=== PATIENT | female | born 1950 | race Caucasian/White ===

== ENCOUNTER → 2020-05-21 09:57 | Outpatient (BNVA) | payer MEDICARE, SELFPAY | PROVIDERS: PCP Internal Medicine; Visit Provider Internal Medicine | DX: Z01.810 Encounter for preprocedural cardiovascular examination (principal); E78.5 Hyperlipidemia, unspecified; M35.3 Polymyalgia rheumatica; R60.0 Localized edema; Z79.52 Long term (current) use of systemic steroids; Z79.899 Other long term (current) drug therapy | CPT/HCPCS: 99212 ==

== ENCOUNTER 2020-06-17 11:02 | Outpatient (REF) | payer MEDICARE, SELFPAY ==
[2020-06-17 14:28] LABS: Anion Gap 16 (12-20); Blood Urea Nitrogen 27 mg/dL (9-16); Calcium 9.6 mg/dL (8.4-10.2); Carbon Dioxide 27 mmol/L (22-29); Chloride 102 mmol/L (96-108); Estimated Glomerular Filt Rate 46; Glucose Random 109 mg/dL (60-115); Potassium 4.3 mmol/l (3.3-5.1); Sodium 141 mmol/L (135-145)
== END 2020-06-17 11:03 | disposition home or self-care (01) ==
LOC: HO.10HDL 11:02
PROVIDERS: Absent Provider Internal Medicine Hypertension Specialist; PCP Registered Nurse; Referring Provider Registered Nurse; Visit Provider Internal Medicine
DX: R07.2 Precordial pain (principal); D64.9 Anemia, unspecified; N18.30 Chronic kidney disease, stage 3 unspecified
CPT/HCPCS: 36415; 80048

== ENCOUNTER 2020-09-27 09:03 | Outpatient (REF) | payer MEDICARE, SELFPAY ==
[2020-09-27 13:59] LABS: Anion Gap 15 (12-20); Blood Urea Nitrogen 16 mg/dL (9-16); Calcium 9.3 mg/dL (8.4-10.2); Carbon Dioxide 30 mmol/L (22-29); Chloride 102 mmol/L (96-108); Estimated Glomerular Filt Rate 47; Sodium 143 mmol/L (135-145)
== END 2020-09-27 09:04 | disposition home or self-care (01) ==
LOC: HO.10HDL 09:03
PROVIDERS: Visit Provider Internal Medicine Hypertension Specialist
DX: D64.9 Anemia, unspecified (principal); N18.30 Chronic kidney disease, stage 3 unspecified
CPT/HCPCS: 36415; 80051; 82310; 82565; 84520

== ENCOUNTER → 2020-11-20 14:48 | Outpatient (BNVA) | payer MEDICARE, SELFPAY | PROVIDERS: PCP Registered Nurse; Visit Provider Internal Medicine | DX: I25.10 Atherosclerotic heart disease of native coronary artery without angina pectoris (principal); E78.5 Hyperlipidemia, unspecified; R60.0 Localized edema | CPT/HCPCS: 93005; 99212 ==

== ENCOUNTER 2021-05-29 09:57 | Emergency (ER) | payer MEDICARE, SELFPAY ==
--- NOTE | ~2021-05-29 | XR_ITS ---
EXAMINATION: XR CHEST CLINICAL INFORMATION: Chest pain COMPARISON: Chest 10/06/2019 TECHNIQUE: Frontal view of the chest was obtained. FINDINGS: No significant abnormality is noted involving the heart, lungs, mediastinum, bony thorax or soft tissues. XR/XR chest 1V IMPRESSION: Unremarkable chest exam.
--- NOTE | 2021-05-29 10:02 | ECG_ITS ---
Test Reason : CHEST PAIN Blood Pressure : / mmHG Vent. Rate : 078 BPM Atrial Rate : 078 BPM P-R Int : 126 ms QRS Dur : 098 ms QT Int : 400 ms P-R-T Axes : -05 -25 -16 degrees QTc Int : 456 ms Artifact in tracing Normal sinus rhythm cannot exclude old inferior infarct, but could be normal variant When compared with ECG of 06-OCT-2019 10:04, No significant changes seen Referred By: Generic ED Physician Electronically Signed By:CODY AMARO
[2021-05-29 10:23] VITALS: BP 131/74; PULSE 89; RESP 20; TEMP 36.9; O2SAT 98; BMI 40.3
[2021-05-29 10:44] VITALS: PULSE 79
[2021-05-29 10:44] LABS: MANUAL DIFF FLAG NO
[2021-05-29 10:54] LABS: Basophils Percent Auto 0.4 % (0-2); Eosinophils Absolute Auto 0.1 X10*3/uL (0.0-0.4); Eosinophils Percent Auto 1.1 % (0-4); Hematocrit 34.7 % (37.0-47.0); Hemoglobin 10.9 g/dl (12.0-16.0); Imm Gran Abs Auto 0.02 X10*3/uL (0.00-0.03); Imm Gran Pct Auto 0.2 % (0.0-0.4); Lymphocytes Absolute Auto 1.6 X10*3/uL (1.2-4.9); Lymphocytes Percent Auto 18.8 % (20-40); Mean Corpuscular HGB Conc 31.4 g/dl (31.0-35.0); Mean Corpuscular Volume 85.9 fL (80.0-98.0); Mean Platelet Volume 9.3 fL (9.4-12.3); Monocytes Absolute Auto 0.4 X10*3/uL (0.1-1.2); Monocytes Percent Auto 5.1 % (2-11); Neutrophils Absolute Auto 6.2 x10*3/uL (2.0-8.3); Neutrophils Percent Auto 74.4 % (45-73); Platelet Count 205 X10*3/uL (160-400); Red Blood Count 4.04 X10*6/uL (4.20-5.50); Red Cell Distribution Width 14.7 % (11.0-16.0); White Blood Count 8.3 X10*3/uL (4.8-10.8)
[2021-05-29 11:00] LABS: INTERNATIONAL NORM RATIO 1.1 (0.9-1.1)
[2021-05-29 11:02] LABS: Anion Gap 16 (12-20); Blood Urea Nitrogen 17 mg/dL (9-16); Calcium 9.8 mg/dL (8.4-10.2); Carbon Dioxide 29 mmol/L (22-29); Chloride 103 mmol/L (96-108); Creatinine Clr Calc Pharmacy 55.8; Estimated Glomerular Filt Rate 47; Glucose Random 122 mg/dL (60-115); Potassium 3.6 mmol/L (3.3-5.1); Sodium 144 mmol/L (135-145)
[2021-05-29 11:10] LABS: B Type Natriuretic Peptide < 10 pg/mL (<100); Troponin-I High Sensitivity 4.3 ng/L (<3.5-17.0)
[2021-05-29 11:28] LABS: Influenza A PCR NEGATIVE (Negative); Influenza B PCR NEGATIVE (Negative); Resp Syncy Virus RNA Qual PCR NEGATIVE (Negative); SARS COV2 PCR INHOUSE NEGATIVE (Negative)
--- NOTE | 2021-05-29 11:41 | ED.CHESTPAIN ---
HPI - Chest Pain General Chief Complaint: Chest Pain Stated Complaint: chest pain nausea Time Seen by Provider: 05/29/21 11:31 Source: patient Mode of arrival: ambulatory History of Present Illness HPI narrative: 70-year-old female with a past medical history of ACS, pedal edema, otherwise today, plan myalgia rheumatica on chronic steroids, presenting to the ED complaining of intermittent left-sided chest pain radiating down left lower extremity with associated nausea, chills, diarrhea, and generalized fatigue/weakness x 2-3 days. Reports mild SOB. Admits tested negative for COVID-19 on Wednesday. Denies fever, abdominal pain, worsening LE edema, recent travel/sick contacts MD complaint: chest discomfort Pertinent past history: coronary artery disease Related Data Home Medications Medication Instructions Recorded Confirmed biotin 10,000 mcg capsule mcg PO 05/21/20 11/20/20 calcium carbonate 600 mg calcium 600 mg PO DAILY 05/21/20 11/20/20 (1,500 mg) tablet (Calcium) colesevelam 625 mg tablet See Rx Instructions PO .COMPLEX 05/21/20 11/20/20 cyanocobalamin (vitamin B-12) 1,000 mcg IM 05/21/20 11/20/20 1,000 mcg/mL injection solution ergocalciferol (vitamin D2) 1,250 1,250 mcg PO QWEEK 05/21/20 11/20/20 mcg (50,000 unit) capsule lisinopril 5 mg tablet 5 mg PO DAILY 05/21/20 11/20/20 magnesium 250 mg tablet 250 mg PO DAILY 05/21/20 11/20/20 multivitamin 1 tab PO DAILY 05/21/20 11/20/20 prednisone 10 mg tablet 10 mg PO DAILY 05/21/20 05/21/20 vitamin A-vitamin C-vit E-min 1 tab PO DAILY 05/21/20 11/20/20 tablet hydrochlorothiazide 12.5 mg tablet 12.5 mg PO DAILY 11/20/20 11/20/20 prednisone 1 mg tablet 4 mg PO DAILY tab 11/20/20 11/20/20 Previous Rx's Medication Instructions Recorded esomeprazole magnesium 20 mg 20 mg PO DAILY #90 cap 05/24/20 capsule,delayed release rosuvastatin 20 mg tablet 20 mg PO DAILY #90 tab 05/22/21 Allergies Allergy/AdvReac Type Severity Reaction Status Date / Time meperidine [From DEMEROL] AdvReac Mild VOMITING Verified 11/20/20 14:56 Papayas Allergy Unknown unknown Uncoded 11/20/20 14:56 Review of Systems Review of Systems: Constitutional: No Fever, No Chills, + Fatigue, + Malaise ENT/Mouth: No Ear Pain, No Nasal Congestion, No sore throat, No Rhinorrhea Eyes: No Eye Pain, No Swelling, No Redness Cardiovascular: + Chest Pain, + SOB, No Dyspnea on Exertion, No Orthopnea, +chronic pedal Edema, No Palpitations Respiratory: No Cough, No Dyspnea Gastrointestinal: No Nausea, No Vomiting, No Diarrhea, No Constipation, No Abdominal pain Genitourinary: No Dysuria, No Flank Pain Musculoskeletal: No joint pain, No Myalgias, No Joint Swelling Skin: No Skin Lesions, No rash Neuro: No Weakness, + lightheadedness, No Headache Yes all other systems are reviewed and are negative [facility] Past Medical History Attestation statement: The following information was validated with the patient. Medical History Atherosclerotic cardiovascular disease Leg edema Obstructive sleep apnea Other and unspecified hyperlipidemia Polymyalgia rheumatica Surgical History History of cholecystectomy History of hysterectomy History of tonsillectomy and adenoidectomy Family History Family History Father CVD (cardiovascular disease) Mother No problems noted. Social History Social History Patient Tobacco Use Status: Never used Tobacco Use of substances other than those prescribed or required for medical reasons: No Advance Directives: No Advance Directives Information Provided: Yes Physical Exam Vital Signs: Vital Signs: Last Vital Signs Temp 98.5 F 05/29/21 10:23 Pulse 69 05/29/21 12:30 Resp 18 05/29/21 12:30 BP 125/72 05/29/21 12:30 Pulse Ox 97 05/29/21 12:30 BMI result Body Mass Index 40.3 Const: General: cooperative, healthy appearing and no acute distress Orientation/consciousness: patient oriented x3 Limitations: no limitations HENMT: Head: Yes normal to inspection Ears: hearing grossly normal bilaterally General nose exam: Normal external nose present Face and sinus: Yes normal facial exam Eyes: General: appearance normal, both eyes and all related structures EOM: EOMs intact bilaterally Neck: Neck: Yes normal visual inspection and Yes no meningeal signs Resp: Effort & Inspection: normal respiratory effort and no respiratory distress Auscultation: clear to auscultation bilaterally, no rales, no rhonchi and no wheezes Cardio: Rate: regular rate Heart sounds: S1 normal heart sound present and S2 normal heart sound present GI: Inspection: Yes normal to inspection Palpation (GI): Soft to palpation, nontender, no guarding and not rigid : General: Yes no CVA tenderness Back/Spine/Pelvis: Back: no CVA tenderness Skin: Rashes: no rashes Wounds: no wounds Neuro: General: patient oriented x3 and no meningeal signs Gait exam (Neuro): Normal gait present Extrem: Other: + chronic bilateral lower extremity pedal edema Course Course Course Narrative: -1152--no leukocytosis. H&H stable troponin negative, BNP negative. Labs otherwise unremarkable XR chest 1V IMPRESSION: Unremarkable chest exam. -1239--COVID-19/influenza/RSV negative >> results discussed with patient including worrisome signs and symptoms and strict return precautions and needed close follow-up with PCP and Cardiology. She verbalized understanding of feel safe for discharge home at this time MDM - Chest Pain MDM Narrative Medical decision making narrative: 70-year-old female with a past medical history of ACS, pedal edema, otherwise today, plan myalgia rheumatica on chronic steroids, presenting to the ED complaining of intermittent left-sided chest pain radiating down left lower extremity with associated nausea, chills, diarrhea, and generalized fatigue/weakness x 2-3 days. On exam vital signs stable, NAD/nontoxic appearing, lungs CTA, chronic bilateral LE pitting edema. Concern CHF vs viral syndrome/COVID-19 vs ?Pneumonia. Symptoms atypical for ACS/PE Plan: EKG, labs, CXR,, 19 testing, re-evaluated Medical Records Data Attestation: I reviewed the patient's medical records. Lab Data Attestation: I reviewed the patient's lab results. Result diagrams: 05/29/21 10:38 05/29/21 10:38 Labs: Lab Results 05/29/21 05/29/21 05/29/21 Range/Units 10:38 10:38 10:38 WBC 8.3 (4.8-10.8) X10*3/uL RBC 4.04 L (4.20-5.50) X10*6/uL Hgb 10.9 L (12.0-16.0) g/dl Hct 34.7 L (37.0-47.0) % MCV 85.9 (80.0-98.0) fL MCH 27.0 (27.0-33.0) pg MCHC 31.4 (31.0-35.0) g/dl RDW 14.7 (11.0-16.0) % Plt Count 205 (160-400) X10*3/uL MPV 9.3 L (9.4-12.3) fL Immature Gran % (Auto) 0.2 (0.0-0.4) % Neut % (Auto) 74.4 H (45-73) % Lymph % (Auto) 18.8 L (20-40) % Harris % (Auto) 5.1 (2-11) % Eos % (Auto) 1.1 (0-4) % Baso % (Auto) 0.4 (0-2) % Lymph # (Auto) 1.6 (1.2-4.9) X10*3/uL Harris # (Auto) 0.4 (0.1-1.2) X10*3/uL Eos # (Auto) 0.1 (0.0-0.4) X10*3/uL Baso # (Auto) 0.0 (0.0-0.2) X10*3/uL Abs Immat Gran (auto) 0.02 (0.00-0.03) X10*3/uL Absolute Neuts (auto) 6.2 (2.0-8.3) x10*3/uL Absolute Nucleated RBC 0.000 (0.0-0.012) X10*3/uL Nucleated RBC % (auto) 0.0 (0.0-0.2) /100WBC PT (9.9-13.0) SEC INR (0.9-1.1) Sodium 144 (135-145) mmol/L Potassium 3.6 (3.3-5.1) mmol/L Chloride 103 (96-108) mmol/L Carbon Dioxide 29 (22-29) mmol/L Anion Gap 16 (12-20) BUN 17 H (9-16) mg/dL Creatinine 1.15 (0.5-1.4) mg/dL Estim Creat Clear Calc 55.8 Estimated GFR 47 Random Glucose 122 H (60-115) mg/dL Calcium 9.8 (8.4-10.2) mg/dL Troponin I High Sens 4.3 (<3.5-17.0) ng/L B-Natriuretic Peptide < 10 (<100) pg/mL Influenza Type A (PCR) (Negative) Influenza Type B (PCR) (Negative) RSV RNA Qual (PCR) (Negative) SARS-CoV-2 RNA (RT-PCR) (Negative) 05/29/21 05/29/21 Range/Units 10:38 10:42 WBC (4.8-10.8) X10*3/uL RBC (4.20-5.50) X10*6/uL Hgb (12.0-16.0) g/dl Hct (37.0-47.0) % MCV (80.0-98.0) fL MCH (27.0-33.0) pg MCHC (31.0-35.0) g/dl RDW (11.0-16.0) % Plt Count (160-400) X10*3/uL MPV (9.4-12.3) fL Immature Gran % (Auto) (0.0-0.4) % Neut % (Auto) (45-73) % Lymph % (Auto) (20-40) % Harris % (Auto) (2-11) % Eos % (Auto) (0-4) % Baso % (Auto) (0-2) % Lymph # (Auto) (1.2-4.9) X10*3/uL Harris # (Auto) (0.1-1.2) X10*3/uL Eos # (Auto) (0.0-0.4) X10*3/uL Baso # (Auto) (0.0-0.2) X10*3/uL Abs Immat Gran (auto) (0.00-0.03) X10*3/uL Absolute Neuts (auto) (2.0-8.3) x10*3/uL Absolute Nucleated RBC (0.0-0.012) X10*3/uL Nucleated RBC % (auto) (0.0-0.2) /100WBC PT 13.0 (9.9-13.0) SEC INR 1.1 (0.9-1.1) Sodium (135-145) mmol/L Potassium (3.3-5.1) mmol/L Chloride (96-108) mmol/L Carbon Dioxide (22-29) mmol/L Anion Gap (12-20) BUN (9-16) mg/dL Creatinine (0.5-1.4) mg/dL Estim Creat Clear Calc Estimated GFR Random Glucose (60-115) mg/dL Calcium (8.4-10.2) mg/dL Troponin I High Sens (<3.5-17.0) ng/L B-Natriuretic Peptide (<100) pg/mL Influenza Type A (PCR) NEGATIVE (Negative) Influenza Type B (PCR) NEGATIVE (Negative) RSV RNA Qual (PCR) NEGATIVE (Negative) SARS-CoV-2 RNA (RT-PCR) NEGATIVE (Negative) ECG Data ECG #1: Attestation: I personally reviewed and interpreted this ECG as follows: ECG interpretation date: 05/29/21 ECG interpretation time: 10:14 Interpretation: EKG normal sinus rhythm at a rate of 78. Pr interval 126. QTC 456. Artifact present. No STEMI Discharge Plan Discharge Clinical Impression: Atypical chest pain, Acute viral syndrome Patient Disposition: Home, Self-Care Instructions: Chest Pain (ED), Viral Syndrome (ED) Additional Instructions: You tested negative for COVID-19, the flu, and RSV. Your blood work was reassuring Your x-ray was negative Please follow-up with her primary care doctor and Cardiology If her symptoms persist or worsen, chest pain becomes more constant, you have shortness of breath, worsening swelling in her legs or fever please return to the ED Rest, stay hydrated Prescriptions: No Action esomeprazole magnesium 20 mg capsule,delayed release(DR/EC) 20 mg PO DAILY Qty: 90 RF: 3 rosuvastatin 20 mg tablet 20 mg PO DAILY Qty: 90 RF: 3 lisinopril 5 mg tablet 5 mg PO DAILY RF: 0 prednisone 10 mg tablet 10 mg PO DAILY RF: 0 ergocalciferol (vitamin D2) 1,250 mcg (50,000 unit) capsule 1,250 mcg PO QWEEK RF: 0 cyanocobalamin (vitamin B-12) 1,000 mcg/mL solution 1,000 mcg IM RF: 0 calcium carbonate [Calcium 600] 600 mg calcium (1,500 mg) tablet 600 mg PO DAILY RF: 0 magnesium 250 mg tablet 250 mg PO DAILY RF: 0 biotin 10,000 mcg capsule PO RF: 0 multivitamin Tablet 1 tab PO DAILY RF: 0 vitamin A-vitamin C-vit E-min Tablet 1 tab PO DAILY RF: 0 colesevelam 625 mg tablet See Rx Instructions PO .COMPLEX RF: 0 prednisone 1 mg tablet 4 mg PO DAILY RF: 0 hydrochlorothiazide 12.5 mg tablet 12.5 mg PO DAILY RF: 0 Referrals: Em Parekh NP [Primary Care Provider] - 2 days Gomez Hale MD [Physician] - 1 week
[2021-05-29 12:30] VITALS: BP 125/72; PULSE 69; RESP 18; O2SAT 97
== END 2021-05-29 14:02 | disposition home or self-care (01) ==
PROVIDERS: Emergency Provider Emergency Medicine; PCP Registered Nurse
DX: R07.89 Other chest pain (principal); B34.9 Viral infection, unspecified; M35.3 Polymyalgia rheumatica; I25.10 Atherosclerotic heart disease of native coronary artery without angina pectoris; Z79.52 Long term (current) use of systemic steroids; Z20.822 Contact with and (suspected) exposure to COVID-19
CPT/HCPCS: 0241U; 36415; 71045; 80048; 83880; 84484; 85025; 85610; 93005; 99284; 99285

== ENCOUNTER → 2021-06-30 09:16 | Outpatient (BNVA) | payer MEDICARE, SELFPAY | PROVIDERS: PCP Registered Nurse; Visit Provider Internal Medicine | DX: M35.3 Polymyalgia rheumatica (principal); M15.9 Polyosteoarthritis, unspecified; M79.7 Fibromyalgia | CPT/HCPCS: 99202 ==

== ENCOUNTER → 2021-07-21 11:38 | Outpatient (BNVA) | payer MEDICARE, SELFPAY | PROVIDERS: PCP Registered Nurse; Visit Provider Internal Medicine | DX: M15.9 Polyosteoarthritis, unspecified (principal); M79.7 Fibromyalgia; M35.3 Polymyalgia rheumatica | CPT/HCPCS: 99212 ==

== ENCOUNTER → 2021-08-04 10:55 | Outpatient (BNVA) | payer MEDICARE, SELFPAY | PROVIDERS: PCP Registered Nurse; Visit Provider Internal Medicine | DX: Z51.81 Encounter for therapeutic drug level monitoring (principal); F11.20 Opioid dependence, uncomplicated; M54.2 Cervicalgia; M54.50 Low back pain, unspecified | CPT/HCPCS: 99212 ==

== ENCOUNTER → 2021-10-16 10:48 | Outpatient (BNVA) | payer MEDICARE, SELFPAY | PROVIDERS: PCP Registered Nurse; Visit Provider Internal Medicine | DX: I25.10 Atherosclerotic heart disease of native coronary artery without angina pectoris (principal); E78.5 Hyperlipidemia, unspecified; R60.0 Localized edema; I10 Essential (primary) hypertension | CPT/HCPCS: 93005; 99212 ==

== ENCOUNTER 2022-03-26 08:34 | Outpatient (REF) | payer MEDICARE, SELFPAY ==
--- NOTE | ~2022-03-26 | CT_ITS ---
EXAMINATION: CT HEAD WITHOUT CONTRAST CLINICAL INFORMATION: 71-year-old with mild cognitive impairment. COMPARISON: 08/29/2017 CT brain. TECHNIQUE: Contiguous axial imaging was performed from the skull base to vertex without intravenous administration of contrast. This CT examination was performed using dose optimization techniques as appropriate, variously including the following: *Automated exposure control *Adjustment of mA and/or kV according to patient size (this includes techniques or standardized protocols for targeted exams where dose is matched to indication/reason for exam; i.e. extremities or head) *Use of iterative reconstruction technique DLP: 858 mGy-cm FINDINGS: There is a 2.5 mm hypodensity in the medial right thalamus, which is a new finding from previous study and could reflect an age-indeterminate lacunar infarct. Otherwise, the brain is structurally within normal limits and is normal in attenuation. Stroud-white matter differentiation is well maintained. No acute territorial infarct, hemorrhage, extra-axial fluid collection, space-occupying process or mass effect. The ventricular system and subarachnoid spaces are within normal limits without hydrocephalus. There are some mural calcifications of the carotid siphons bilaterally. Calvarium is intact. Visualized mastoids and middle ear cavities are unopacified and the visualized paranasal sinuses are unopacified. CT/CT head/brain wo IV con IMPRESSION: Possible tiny age-indeterminate lacunar infarct in the right thalamus, which is a new finding from previous study. Otherwise no acute territorial infarct, hemorrhage, extra-axial fluid collection, space-occupying process, mass effect or hydrocephalus.
== END 2022-03-26 08:35 | disposition home or self-care (01) ==
LOC: HO.CT 08:34
PROVIDERS: PCP Registered Nurse; Visit Provider Psychiatry & Neurology Neurology
DX: G31.84 Mild cognitive impairment of uncertain or unknown etiology (principal)
CPT/HCPCS: 70450

== ENCOUNTER → 2022-04-21 11:06 | Outpatient (BNVA) | payer MEDICARE, SELFPAY | PROVIDERS: PCP Registered Nurse; Visit Provider Internal Medicine | DX: I25.10 Atherosclerotic heart disease of native coronary artery without angina pectoris (principal); I10 Essential (primary) hypertension; E78.5 Hyperlipidemia, unspecified; R60.0 Localized edema | CPT/HCPCS: 99212 ==

== ENCOUNTER 2022-12-07 22:41 | Emergency (ER) | payer MEDICARE, SELFPAY ==
[2022-12-07 23:06] VITALS: BP 152/93; PULSE 112; RESP 19; TEMP 37.2; O2SAT 96; BMI 37.8
[2022-12-08 00:19] LABS: Alanine Aminotransferase 14 U/L (0-31); Albumin Level 4.3 g/dL (3.5-5.0); Alkaline Phosphatase 79 U/L (39-117); Anion Gap 16 (12-20); Aspartate Amino Transferase 15 U/L (5-31); Bilirubin Total 0.6 mg/dL (0.0-1.0); Blood Urea Nitrogen 16 mg/dL (9-16); Carbon Dioxide 29 mmol/L (22-29); Chloride 100 mmol/L (96-108); Creatinine Clr Calc Pharmacy 65.3; Estimated Glomerular Filt Rate > 60; Glucose Random 117 mg/dL (60-115); Potassium 3.2 mmol/L (3.3-5.1); Sodium 142 mmol/L (135-145); Total Protein 7.5 g/dL (6.5-8.0)
[2022-12-08 01:41] VITALS: BP 153/91; PULSE 106; RESP 20; TEMP 36.7; O2SAT 96
--- NOTE | 2022-12-08 02:26 | PC.NURSE ---
pt a&o, no sob or chest pain at this time, pt reports having neck pain 8/10 for several days. pt is resting and awaiting to be seen by the provider. pt placed on heart monitor.
--- NOTE | 2022-12-08 03:08 | PC.NURSE ---
Pt requesting medication for pain. per verbal order Acetaminophen ordered. Will medicated per Mar, Ice pack given and water. Will continue to monitor.
--- NOTE | 2022-12-08 03:30 | PC.NURSE ---
Repositioned bed for comfort, pt given pillow and warm blanket.
[2022-12-08 04:03] VITALS: BP 139/74; PULSE 87; RESP 18; TEMP 36.7; O2SAT 93
--- NOTE | 2022-12-08 05:08 | PC.NURSE ---
Mediated per Mar. Will continue monitor
--- NOTE | 2022-12-08 05:13 | PC.NURSE ---
Ekg being completed.
--- NOTE | 2022-12-08 05:28 | ED.GENADULT ---
HPI - General Adult General Chief complaint: General Medical Stated complaint: elevated bp neck pain Time Seen by Provider: 12/08/22 04:44 Source: patient Mode of arrival: ambulatory Limitations: no limitations History of Present Illness HPI narrative: Patient comes to the emergency room complaining of high blood pressure. Patient states that at home she noted that her blood pressure is 187/116, patient got scared and came to emergency room. Patient states she has no chest pain. Patient has posterior neck pain. But it has been going on for several days. Patient has already been assessed at urgent care, patient was diagnosed with a trapezius muscle injury. Related Data Home Medications Medication Instructions Recorded Confirmed colesevelam 625 mg tablet See Rx Instructions PO .COMPLEX 05/21/20 04/21/22 cyanocobalamin (vitamin B-12) 1,000 mcg IM 05/21/20 04/21/22 1,000 mcg/mL injection solution ergocalciferol (vitamin D2) 1,250 1,250 mcg PO QWEEK 05/21/20 04/21/22 mcg (50,000 unit) capsule multivitamin 1 tab PO DAILY 05/21/20 04/21/22 hydrochlorothiazide 12.5 mg tablet 12.5 mg PO DAILY 11/20/20 04/21/22 aspirin 81 mg tablet,delayed 81 mg PO DAILY 06/30/21 04/21/22 release (Adult Aspirin Regimen) Previous Rx's Medication Instructions Recorded esomeprazole magnesium 20 mg 20 mg PO DAILY #90 caps 05/24/20 capsule,delayed release rosuvastatin 20 mg tablet 20 mg PO DAILY #90 tabs 05/21/22 Allergies Allergy/AdvReac Type Severity Reaction Status Date / Time meperidine [From DEMEROL] AdvReac Mild VOMITING Verified 04/21/22 11:16 Papayas Allergy Unknown unknown Uncoded 04/21/22 11:16 Review of Systems Review of Systems: Constitutional : No Weight loss, No Fever, No Chills, No Night Sweats, No Fatigue, No Malaise ENT/Mouth : No Hearing loss, No Ear Pain, No Nasal Congestion, No Sinus Pain, No Hoarseness, No sore throat, No Rhinorrhea, No Swallowing Difficulty Eyes: No Eye Pain, No Swelling, No Redness, No Foreign Body, No Discharge, No Vision Changes Cardiovascular complaining of high blood pressure, No Chest Pain, No SOB, No Dyspnea on Exertion, No Orthopnea, No Edema, No Palpitations Respiratory : No Cough, No Sputum, No Wheezing, No Smoke Exposure, No Dyspnea Gastrointestinal : No Nausea, No Vomiting, No Diarrhea, No Constipation, No abdominal Pain, No Hematochezia, No Melena Genitourinary : no irregular bleeding, No Dysuria, No Urinary Frequency, No Hematuria, No Urinary Incontinence, No Urgency, No Flank Pain, No Urinary Flow Changes, No Hesitancy Musculoskeletal : Complaining of chronic back pain, No joint pain, No Myalgias, No Joint Swelling Skin : No Skin Lesions, No rash Neuro : No Weakness, No Numbness, No Paresthesias, No Loss of Consciousness, No Dizziness, No Headache Psych : No Anxiety/Panic, No Depression, No SI/HI/AH/VH, No Social Issues, Heme/Lymph: No Bruising, No Bleeding,No Lymphadenopathy Endocrine : No Polyuria, No Polydipsia, No Temperature Intolerance PMFSH Past Medical History Medical History Atherosclerotic cardiovascular disease Essential hypertension Fibromyalgia Leg edema Low back pain Neck pain of over 3 months duration Obstructive sleep apnea Other and unspecified hyperlipidemia Polyarticular osteoarthritis Polymyalgia rheumatica Surgical History History of cholecystectomy History of hysterectomy History of tonsillectomy and adenoidectomy Family History Family History Father CVD (cardiovascular disease) Mother No problems noted. Social History Social History Patient Tobacco Use Status: Never used Tobacco Smoked in Last 30 Days: No Use of substances other than those prescribed or required for medical reasons: No Advance Directives: No Advance Directives Information Provided: Yes Physical Exam ED Vital Signs: Vital Signs - 24 hr 12/07/22 23:06 12/08/22 01:41 12/08/22 04:03 Temperature 99.0 F 98.1 F 98.1 F Pulse Rate 112 H 106 H 87 Respiratory Rate 19 20 18 Blood Pressure 152/93 H 153/91 H 139/74 Pulse Oximetry 96 96 93 Oxygen Delivery Method Room Air Room Air 12/08/22 05:31 Temperature Pulse Rate 72 Respiratory Rate 18 Blood Pressure 145/66 H Pulse Oximetry 94 Oxygen Delivery Method Room Air BMI result Body Mass Index 37.8 Const Other: Appearance: Alert. Oriented X3. No acute distress. Eyes: Pupils equal, round and reactive to light. ENT: Pharynx normal. Neck: Normal inspection. Neck supple. No lymph nodes noted. No crepitus CVS: Normal heart rate and rhythm. Pulses normal. Normal S1 and S2 Respiratory: No respiratory distress. Breath sounds normal. No Wheezing. No rales Abdomen: Soft and nontender. No rigidity. No distention. Skin: Skin warm and dry. Normal skin color. Normal skin turgor. Extremities: No lower extremity edema. No Lacerations. No Rash Neuro: Oriented X 3. No motor deficit. No sensory deficit. Moving all extremities. No slurred speech. CN 2 through 12 grossly intact Psych: calm, cooperative, normal affect Medications Administered Discontinued Medications Generic Name Dose Route Start Last Admin Trade Name Freq PRN Reason Stop Dose Admin Acetaminophen 975 mg 12/08/22 03:07 12/08/22 03:12 Acetaminophen 325 Mg Tablet PO 12/08/22 03:08 975 mg ONCE ONE Administration Amlodipine Besylate 5 mg 12/08/22 04:53 12/08/22 05:07 Amlodipine Besylate 5 Mg Tablet PO 12/08/22 04:54 5 mg ONCE ONE Administration Protocol Medical Decision Making Medical Decision Making [facility] Narrative: Patient's chemistry and hematology unremarkable -EKG and troponin pending -patient's blood pressure was 170. Patient very concerned about being this high which has never happened, only takes 12.5 mg of hydrochlorothiazide daily. Patient given 1 dose of p.o. amlodipine 5 mg. -EKG my interpretation: Normal sinus rhythm, heart rate 75, no ST segment depression or elevation, nonspecific T-wave inversion in III, QTC 482 -patient's blood pressure improved to 140 5/66, patient feeling better. -discussed with the patient to increase her blood pressure medication hydrochlorothiazide to 25 mg. Patient has an appointment with her new PCP in 2 days Differential Diagnosis Differential Diagnoses: The differential diagnosis associated with the presentation includes (Anxiety, hypertension) Lab Data [facility] Lab Attestation statement: I reviewed the patient's lab results. 12/07/22 23:55 12/07/22 13:55 Labs: Lab Results 12/07/22 12/07/22 12/08/22 Range/Units 13:55 23:55 05:26 WBC 10.4 (4.8-10.8) X10*3/uL RBC 4.70 (4.20-5.50) X10*6/uL Hgb 12.5 (12.0-16.0) g/dl Hct 38.9 (37.0-47.0) % MCV 82.8 (80.0-98.0) fL MCH 26.6 L (27.0-33.0) pg MCHC 32.1 (31.0-35.0) g/dl RDW 15.0 (11.0-16.0) % Plt Count 223 (160-400) X10*3/uL MPV 8.8 L (9.4-12.3) fL Absolute Nucleated RBC 0.000 (0.0-0.012) X10*3/uL Nucleated RBC % (auto) 0.0 (0.0-0.2) /100WBC Sodium 142 (135-145) mmol/L Potassium 3.2 L (3.3-5.1) mmol/L Chloride 100 (96-108) mmol/L Carbon Dioxide 29 (22-29) mmol/L Anion Gap 16 (12-20) BUN 16 (9-16) mg/dL Creatinine 0.92 (0.5-1.4) mg/dL Estim Creat Clear Calc 65.3 Estimated GFR > 60 Random Glucose 117 H (60-115) mg/dL Calcium 10.0 (8.4-10.2) mg/dL Total Bilirubin 0.6 (0.0-1.0) mg/dL AST 15 (5-31) U/L ALT 14 (0-31) U/L Alkaline Phosphatase 79 (39-117) U/L Troponin I High Sens 3.2 (<3.5-17.0) ng/L Total Protein 7.5 (6.5-8.0) g/dL Albumin 4.3 (3.5-5.0) g/dL Discharge Plan Discharge Clinical Impression: Hypertension Patient Disposition: Home, Self-Care Instructions: Hypertension (ED) Additional Instructions: Increase hydrochlorothiazide to 25 mg daily. Please follow-up with your primary care physician tomorrow. If you have any worsening or new symptoms, please return to the emergency room or call 911 Prescriptions: No Action esomeprazole magnesium 20 mg capsule,delayed release(DR/EC) 20 mg PO DAILY Qty: 90 3RF rosuvastatin 20 mg tablet 20 mg PO DAILY Qty: 90 3RF ergocalciferol (vitamin D2) 1,250 mcg (50,000 unit) capsule 1,250 mcg PO QWEEK cyanocobalamin (vitamin B-12) 1,000 mcg/mL solution 1,000 mcg IM multivitamin Tablet 1 tab PO DAILY colesevelam 625 mg tablet See Rx Instructions PO .COMPLEX Rx Instructions: 2-4 tablets once a day PO; hydrochlorothiazide 12.5 mg tablet 12.5 mg PO DAILY aspirin [Adult Aspirin Regimen] 81 mg tablet,delayed release (DR/EC) 81 mg PO DAILY
[2022-12-08 05:31] VITALS: BP 145/66; PULSE 72; RESP 18; O2SAT 94
[2022-12-08 06:01] VITALS: BP 139/70; PULSE 78
--- NOTE | 2022-12-08 06:15 | PC.NURSE ---
Pt a&o, no sob or chest pain, blood pressure improved with medication, provider aware. Reviewed discharge instructions with pt. pt verbalized understanding. No sign of distress upon discharge.
== END 2022-12-08 06:17 | disposition home or self-care (01) ==
PROVIDERS: Emergency Provider Emergency Medicine; PCP Registered Nurse
DX: I10 Essential (primary) hypertension (principal); M54.2 Cervicalgia; I25.10 Atherosclerotic heart disease of native coronary artery without angina pectoris
CPT/HCPCS: 36415; 80053; 84484; 85027; 93005; 99283; 99284

== ENCOUNTER 2023-04-27 10:39 | Outpatient (AMB) | payer MEDICARE, SELFPAY ==
[2023-04-27 10:45] VITALS: BP 130/68; PULSE 87; BMI 38.2
--- NOTE | 2023-04-27 10:45 | A.OFFVIS_ITS ---
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: No Accompanied by: Self / Same As Patient Allergies meperidine [From DEMEROL] Adverse Reaction (Mild, Verified 04/27/23 10:48) VOMITING Papayas Allergy (Unknown, Uncoded 04/27/23 10:48) unknown Medication List - Last Reconciled 04/27/23 by Gomez Hale MD allopurinol 100 mg PO DAILY aspirin (Adult Aspirin Regimen) 81 mg PO DAILY colesevelam 2-4 tablets once a day PO; cyanocobalamin (vitamin B-12) 1,000 mcg IM ergocalciferol (vitamin D2) 1,250 mcg PO QWEEK esomeprazole magnesium 20 mg PO DAILY lisinopril 5 mg PO DAILY multivitamin 1 tab PO DAILY rosuvastatin 20 mg PO DAILY HPI HPI Comments History of Present Illness Details Giuliana returns for follow-up regarding coronary disease. In the past, she was seen for chest discomfort and shortness of breath. She is morbidly obese. She underwent an echocardiogram and stress test and then eventually was sent for coronary CT as well. We had arranged a coronary CTA, but due to gating issues as well as being overweight, she had only a calcium scoring test. Then she was thought to have polymyalgia rheumatica and put on prednisone. After the steroids were stopped, she lost more than 50 lb in weight. Overall, generally feels okay. Some random chest pains but not exertional. Not too active overall. Needs to go for knee surgery. COUNT INCLUDES THE [facility] Medical History (Updated 04/27/23 @ 11:01 by Gomez Hale MD) Essential hypertension Low back pain Neck pain of over 3 months duration Fibromyalgia Polyarticular osteoarthritis Leg edema Obstructive sleep apnea Polymyalgia rheumatica Other and unspecified hyperlipidemia Atherosclerotic cardiovascular disease Surgical History History of hysterectomy History of cholecystectomy History of tonsillectomy and adenoidectomy Family History Father CVD (cardiovascular disease) Mother No problems noted. Patient Tobacco Use Status: Never used Tobacco Review of Systems Const Denies weakness ENT Denies dizziness Card Denies chest pain, Denies chest pain with activity, Denies syncope, Denies rapid heart rate, Denies pedal edema, Denies edema, Denies leg edema, Denies lightheadedness, Denies palpitations, Denies dyspnea, Denies dyspnea on exertion and Denies orthopnea Resp Denies cough, Denies dyspnea and Denies dyspnea on exertion GI Denies hematochezia and Denies change in stool character Musc Denies abnormal gait, Denies muscle cramps, Denies muscle weakness, Denies numbness, Denies radiating pain into limb and Denies tingling Neuro Denies abnormal gait, Denies dizziness, Denies syncope, Denies numbness, Denies tingling and Denies weakness Endo Denies palpitations Physical Exam Vital Signs: Last Vital Signs Pulse 87 04/27/23 10:45 BP 130/68 04/27/23 10:45 BMI result Body Mass Index 38.2 Const General: comfortable and no acute distress Orientation/consciousness: patient oriented x3 HEENT Other: Unremarkable Head: Yes normal to inspection Neck Neck: Yes normal visual inspection Chest Chest palpation & inspection: normal inspection of the chest Resp Auscultation: clear to auscultation bilaterally Cardio Palpation: normal PMI Heart sounds: S1 normal heart sound present, S2 normal heart sound present, no gallops, no murmurs and no rubs GI Palpation (GI): Soft to palpation Back/Spine/Pelvis Other: unremarkable Skin General skin exam: no rashes or lesions noted Neuro General: patient oriented x3 Extrem General: Yes normal to inspection Psych Mental Status: mental status grossly normal Assessment & Plan Assessment & Plan (1) Atherosclerotic cardiovascular disease: Code(s): I25.10 - Atherosclerotic heart disease of redding coronary artery without angina pectoris Plan: Cardiac studies reviewed. In the past (05/2020), coronary CTA could not be completed due to gating issues as well as obesity and she only had a calcium scoring CT. Total calcium score is 355. Majority in the LAD; mild calcification left main and right coronary artery. Circumflex did not have any calcification at all. Myocardial perfusion imaging study from 10/2019 showed normal perfusion. Continue aspirin and statins. Last LDL 42 mg/dL. Triglycerides 209 mg/dL. (2) Essential hypertension: Code(s): I10 - Essential (primary) hypertension Plan: Stable. No changes. (3) Obstructive sleep apnea: Code(s): G47.33 - Obstructive sleep apnea (adult) (pediatric) Plan: There is a history of BETTY, but does not use any CPAP mask. It has been many years since she was last evaluated. Will repeat this study. (4) Preoperative cardiovascular examination: Code(s): Z01.810 - Encounter for preprocedural cardiovascular examination Plan: Known CAD, not too active at baseline, going for knee surgery. Will repeat echocardiogram and stress test. Orders: Orders RT home sleep study Today G47.33 - Obstructive sleep apnea (adult) (pediatric) CA echo transthoracic complete Today I25.10 - Atherosclerotic heart disease of redding coronary artery without angina pectoris CA lexiscan stress w tana Today I20.9 - Angina pectoris, unspecified, I25.10 - Atherosclerotic heart disease of redding coronary artery without angina pectoris NM cardiolite stress test Today I25.10 - Atherosclerotic heart disease of redding coronary artery without angina pectoris, R07.2 - Precordial pain Coding Level of Care Code Est Pt Level 4 (79071) Diagnoses Atherosclerotic cardiovascular disease I25.10 Essential hypertension I10 Obstructive sleep apnea G47.33 Preoperative cardiovascular examination Z01.810
== END 2023-04-27 11:14 | disposition home or self-care (01) ==
PROVIDERS: Visit Provider Internal Medicine
DX: I25.10 Atherosclerotic heart disease of native coronary artery without angina pectoris (principal); I10 Essential (primary) hypertension; G47.33 Obstructive sleep apnea (adult) (pediatric); Z01.810 Encounter for preprocedural cardiovascular examination
CPT/HCPCS: 99214

== ENCOUNTER → 2023-04-27 10:39 | Outpatient (BNVA) | payer MEDICARE, SELFPAY | PROVIDERS: Visit Provider Internal Medicine | DX: Z01.810 Encounter for preprocedural cardiovascular examination (principal); I25.10 Atherosclerotic heart disease of native coronary artery without angina pectoris; I10 Essential (primary) hypertension; G47.33 Obstructive sleep apnea (adult) (pediatric) | CPT/HCPCS: 99212 ==

== ENCOUNTER → 2023-05-18 08:47 | Outpatient (REF) | payer MEDICARE, SELFPAY ==
--- NOTE | ~2023-05-18 | NM_ITS ---
Lexiscan Myocardial perfusion study Indication: Chest pain, assess for coronary disease and ischemia Technique: The patient was brought in for a Lexiscan perfusion study on 05/18/2023 and was injected 0.4 mg of Lexiscan intravenously. Within a minute of this injection 40 mCi of sestamibi was given intravenously. Images were obtained using the SPECT gamma camera interlaced with the gating device. Images were obtained in supine position. Resting perfusion study was performed on 05/19/2023. Patient was administered 40 mCi of sestamibi intravenously at rest. Images were then obtained in supine position. Images were processed with the software and compared side to side in short axis, horizontal long axis and vertical long axis views. Total DLP 121mGy-cm. Findings: Raw acquisition reviewed. The stress perfusion study showed no significant perfusion defects. Both uncorrected as well as CT attenuation corrected images were reviewed. The gated study shows normal LV systolic function with calculated LVEF of 59%. LV cavity is normal in size. The gated study shows normal wall thickening and contraction of segments. Resting study shows diminished tracer uptake at the apex that might be artifactual. Uncorrected as well as CT attenuation corrected images were reviewed. Gating at rest reveals normal wall motion with ejection fraction at 55%. The findings are consistent with no clear reversible or fixed perfusion defects. NM/AL cardiolite stress test Impression: 1. Myocardial perfusion imaging study shows likely normal myocardial perfusion. 2. Gated LVEF is 59% during stress and 55% during rest. 3. Transient ischemic dilatation not present. EKG component of the test reported separately.
--- NOTE | 2023-05-18 08:51 | CA_ITS ---
Acquisition Time: 2023-05-18 08:46:44 Total Exercise Time: 00:02:00 Test Indications: Chest Pain/ Pre-op Medications: Allopurinol ASA Lisinopril Crestor Protocol: LEXISCAN Max HR: 127 BPM 84% of Pred: 150 BPM Max BP: 142/070 mmHG Max Work Load: 1.0 METS Pharmacological stress test with Lexiscan injection while sitting and kicking her legs, without anginal symptoms, without arrhythmias, with normotensive response to injection, with nondiagnsotic EKGs. Aminophylline 75mg IVP given to revese Lexiscan. Nuclear images pending. Test reviewed with Dr. Varghese. Referred By: Gomez Hale Overread By: Eli Ruiz
== END ==
LOC: HO.CARD 08:47
PROVIDERS: PCP Registered Nurse; Visit Provider Internal Medicine
DX: R07.2 Precordial pain (principal); I25.119 Atherosclerotic heart disease of native coronary artery with unspecified angina pectoris
CPT/HCPCS: 78452; 93017; A9500; J0280; J2785

== ENCOUNTER → 2023-05-18 08:51 | Outpatient (BNV) | payer MEDICARE, SELFPAY | PROVIDERS: PCP Registered Nurse; Visit Provider Nurse Practitioner | DX: R07.2 Precordial pain (principal) | CPT/HCPCS: 78452; 93016; 93018 ==

== ENCOUNTER → 2023-05-19 12:25 | Outpatient (REF) | payer MEDICARE, SELFPAY ==
--- NOTE | 2023-05-19 12:27 | CA_ITS ---
Transthoracic Echocardiogram Patient (Last, First, Middle): Giuliana Spring C Gender: Female Date of : 1950 Age: 72 Procedure Date: 05/19/2023 Procedure Type: Transthoracic Echocardiogram Location: OP Height: 162.56 cm Weight: 100.7 kg BSA: 2.04 m2 Heart Rate: 69 bpm BP: 132 / 64 mmHg Occupational Rehabilitation Aide: SB Referring MD: Gomez Hale MD Laborer Salvage: Gordon Tolliver MD Symptoms: I25.10 - Atherosclerotic heart disease of iroqu[place] coronary artery without... Study Quality: Adequate ECG Rhythm: Sinus Conclusions: - 1. Normal LV ejection fraction 60 65% with impaired relaxation filling pattern 2. Calcific aortic and mitral valve changes noted with normal cardiac valvular Doppler 3. Normal RV systolic pressure 4. Upper limits ofnormal ascending aortic size 5. No pericardial effusion Findings Left Ventricle Normal left ventricular size, thickness, and systolic function. The visually estimated ejection fraction is between 60-65%. Spectral Doppler is indicative of an impaired relaxation filling pattern. E/E prime ratio is between 8 and 15 consistent with indeterminate filling pressures. Peak GLS is -19.3%, within normal limits. Right Ventricle Normal right ventricular cavity size and systolic function. Atria Both atria are normal in size. Interatrial shunt cannot be excluded. Aortic Valve There is mild calcification of the aortic valve. There is no aortic valve stenosis. There is no aortic valve regurgitation. Mitral Valve There is mild anterior and posterior mitral leaflet thickening. There is mild mitral annular calcification. There is trace mitral valve regurgitation. There is no mitral valve stenosis. Pulmonic Valve The pulmonic valve is likely normal. Tricuspid Valve Normal tricuspid valve structure. There is trace tricuspid valve regurgitation. The right ventricular systolic pressure is normal. The right ventricular systolic pressure is 25 mmHg. Normal right atrial pressure. There is no evidence of pulmonary hypertension. Great Vessels The pulmonary artery was not well visualized. Venous The inferior vena cava is normal in size and collapses greater than 50% with inspiration. Pericardium/Pleural There is no evidence of pericardial effusion. Measurements 2D Linear Measurements IVSd: 1.05 0.6-0.9/0.6-1.0 cm LVIDd: 4.29 3.9-5.3/4.2-5.9 cm LVIDd Index: 2.10 2.4-3.2/2.2-3.1 cm/m2 LVIDs: 3.03 2.0-3.6 cm LVPWd: 0.73 0.7-1.1 cm LA Diam: 3.80 2.7-3.8/3.0-4.0 cm LAIDs Index: 1.86 1.5-2.3 cm/m2 LV Mass: 150.37 67-162/88-224 g LV Mass Index: 73.71 43-95/49-115 g/m2 LVOT Diam: 2.30 3.0+(-)1.3 cm 2D Systolic Function EF 4C: 63.50 >55% EF 2C: 58.80 >55% EF BiP: 61.10 >55% Mitral Valve MV Pk E: 0.51 MV PK A: 0.70 MV Decel Time: 270.00 E/A: 0.70 E'Lateral: 7.83 E'Medial: 5.33 E/E' Med: 9.60 E/E' Lat: 6.60 PHT: 79.00 MVA PHT: 2.78 Decel Berks: 1.91 Aortic Valve AoV Pk Solo: 1.19 AoV Pk Grad: 6.00 UCHE: 3.07 LVOT LVOT Pk Solo: 0.88 LVOT Mn Solo: 0.57 LVOT VTI: 0.20 LVOT Pk Grad: 3.00 LVOT Mn Grad: 2.00 LVOT Diam: 2.30 LVOT Area: 4.15 Diastolic Function MV Pk E: 0.51 MV Pk A: 0.70 E/A: 0.70 E'Medial: 5.33 E/E' Med: 9.60 E' Laterial: 7.83 E/E' Lat: 6.60 Right Ventricle TAPSE (mm): 20.40 TVS' Solo: 10.40 Tricuspid Valve TR Pk Solo: 2.06 TR Pk Grad: 17.00 RA Press: 8.00 RVSP: 25.00 Great Vessels Aorta Sinus of Valsalva: 3.50 2.0-3.5 cm Ao Asc: 3.60 2.1-3.4 cm Ao Arch: 3.30 Pulmonary Veins Pulm Vein S/D 1.60 Pulmonary Valve PV Pk Solo: 0.80 Peak PV Grad: 3.00 Updated in Other Vendor System with Status of Final Gordon Tolliver MD electronically signed on 05/19/2023 4:33:40 PM with status of Final
== END ==
LOC: HO.CARD 12:25
PROVIDERS: PCP Registered Nurse; Visit Provider Internal Medicine
DX: I25.10 Atherosclerotic heart disease of native coronary artery without angina pectoris (principal)
CPT/HCPCS: 93306; 93356

== ENCOUNTER → 2023-05-19 12:27 | Outpatient (BNV) | payer MEDICARE, SELFPAY | PROVIDERS: PCP Registered Nurse; Visit Provider Internal Medicine Cardiovascular Disease | DX: I34.81 Nonrheumatic mitral (valve) annulus calcification (principal) | CPT/HCPCS: 93306 ==

== ENCOUNTER 2023-05-24 11:00 | Outpatient (RCR) | payer MEDICARE, SELFPAY | END 2023-06-14 12:44 | disposition home or self-care (01) | LOC: HO.PT 11:00 | PROVIDERS: PCP Registered Nurse; Visit Provider Orthopaedic Surgery | DX: M17.12 Unilateral primary osteoarthritis, left knee (principal) | CPT/HCPCS: 97110; 97112; 97116; 97161 ==

== ENCOUNTER 2023-05-25 13:51 | Outpatient (AMB) | payer MEDICARE, SELFPAY ==
[2023-05-25 14:03] VITALS: BP 134/72; PULSE 76; BMI 38.1
--- NOTE | 2023-05-25 14:03 | A.OFFVIS_ITS ---
Intake Vital Signs 05/25/23 14:03 Height 5 ft 4 in Weight 222 lb 3.615 oz BMI 38.1 BP 134/72 Blood Pressure Location Lt brachial Position Sitting Pulse 76 Pulse Source Monitor Intake Visit Reasons: pre-op clearance had some dizziness last week Allergies meperidine [From DEMEROL] Adverse Reaction (Mild, Verified 05/25/23 14:07) VOMITING Papayas Allergy (Unknown, Uncoded 04/27/23 10:48) unknown Medication List - Last Reconciled 05/25/23 by Daly Chew NP-C allopurinol 100 mg PO DAILY aspirin (Adult Aspirin Regimen) 81 mg PO DAILY colchicine 0.6 mg PO DAILY colesevelam 2-4 tablets once a day PO; cyanocobalamin (vitamin B-12) 1,000 mcg IM ergocalciferol (vitamin D2) 1,250 mcg PO QWEEK esomeprazole magnesium 20 mg PO DAILY hydrochlorothiazide 12.5 mg PO DAILY multivitamin 1 tab PO DAILY rosuvastatin 20 mg PO DAILY HPI pre-op clearance had some dizziness last week HPI Details Giuliana is a 72-year-old female with past medical history of obesity, hypertension, hyperlipidemia, CAD with elevated coronary calcium score who recently had an echocardiogram and nuclear stress test and now presents for follow-up. Today she reports that she does feel a random intermittent pressure in her left chest region. She is unsure if it is in the breast tissue or muscle. She does have some tenderness to palpation. No exertional chest discomfort. No shortness of breath, palpitations, presyncope, syncope, PND, orthopnea or edema. She did have an episode of feeling lightheaded about 10 days ago. She checked her blood pressure at that time and found to be around 100/60. She increased her fluid and had some chicken soup with improvement in her symptoms. She tells me she will be having knee replacement surgery in the near future. [facility] Medical History Essential hypertension Low back pain Neck pain of over 3 months duration Fibromyalgia Polyarticular osteoarthritis Leg edema Obstructive sleep apnea Polymyalgia rheumatica Other and unspecified hyperlipidemia Atherosclerotic cardiovascular disease Surgical History History of hysterectomy History of cholecystectomy History of tonsillectomy and adenoidectomy Family History Father CVD (cardiovascular disease) Mother No problems noted. Social History Patient Tobacco Use Status: Never used Tobacco Review of Systems Const All systems reviewed & are unremarkable except as noted in HPI and below ENT Reports dizziness Card Details: random mild pressure left chest Denies chest pain, Denies chest pain at rest, Denies chest pain with activity, Denies rapid heart rate, Denies pedal edema, Denies edema, Denies leg edema, Denies lightheadedness, Denies palpitations, Denies dyspnea, Denies dyspnea on exertion and Denies orthopnea Resp Denies cough, Denies dyspnea and Denies dyspnea on exertion GI Denies hematochezia and Denies change in stool character Musc Details: knee discomfort Denies abnormal gait, Denies limited range of motion, Denies muscle cramps, Denies muscle weakness, Denies numbness, Denies radiating pain into limb, Denies stiffness and Denies tingling Neuro Denies abnormal gait, Reports dizziness, Denies numbness and Denies tingling Endo Denies palpitations Physical Exam Vital Signs: Last Vital Signs Pulse 76 05/25/23 14:03 BP 134/72 05/25/23 14:03 BMI result Body Mass Index 38.1 Const General: cooperative, healthy appearing, comfortable and no acute distress Orientation/consciousness: patient oriented x3 Neck Neck: Yes normal visual inspection Resp Effort & Inspection: normal respiratory effort Auscultation: clear to auscultation bilaterally, no crackles, no rales, no rhonchi and no wheezes Cardio Jugular venous distension: no JVD Rate: regular rate Rhythm: regular rhythm Heart sounds: S1 normal heart sound present, S2 normal heart sound present, no murmurs and no rubs Neuro General: patient oriented x3 Extrem General: Yes normal to inspection Psych Appearance: grossly normal Mental Status: mental status grossly normal Speech and movement: Normal speech and movement present Office Procedures EKG Details: Today, read by me, sinus rhythm, no acute ST or T-wave abnormalities, low-voltage QRS, likely related to body habitus, QTC 474 milliseconds, rate 74 [id number], Complete Assessment & Plan Assessment & Plan (1) Atherosclerotic cardiovascular disease: Code(s): I25.10 - Atherosclerotic heart disease of [place] coronary artery without angina pectoris Plan: History of CAD. Elevated calcium score 355 on 05/07/2020, primarily in the LAD. She has been on medications for risk factor modification. She does report some atypical sounding chest discomfort, reproducible with palpation. She underwent a nuclear stress test on 05/19/2023 showing normal myocardial perfusion imaging. An echocardiogram done 05/19/2023 showed EF 60-65%, calcific aortic valve and mitral valve each with no regurgitation or stenosis, No regional wall motion abnormalities reported. There is no evidence that her chest discomfort is cardiac in nature. Since it is reproducible with palpation it is likely chest wall/musculoskeletal. Offered reassurance. Continue with risk factor modification. Continue with aspirin 81 mg daily indefinitely. Continue rosuvastatin with ideal LDL goal less than 70. Continue hydrochlorothiazide for good blood pressure control. Benefits of weight loss and exercise reviewed with her. Signs and symptoms of angina reviewed. Cardiology follow-up in 6 months, sooner if needed. (2) Chest discomfort: Code(s): R07.89 - Other chest pain Plan: As above (3) Essential hypertension: Code(s): I10 - Essential (primary) hypertension Plan: Well controlled at present. (4) Other and unspecified hyperlipidemia: Code(s): E78.5 - Hyperlipidemia, unspecified Plan: [place] LDL goal less than 70. No recent lipid profile for review. Follows with her PCP. Continue rosuvastatin 20 mg daily. (5) Preoperative cardiovascular examination: Code(s): Z01.810 - Encounter for preprocedural cardiovascular examination Plan: Preop for total knee replacement in June 2023. She does have elevated calcium score with calcium primarily in the LAD. Recent nuclear stress test looks normal. Recent echo shows normal EF. She is low to intermediate cardiac risk for her procedure. Aspirin can be held as needed and restarted when able postprocedure. Call/consult Cardiology if needed. Plan Time spent on chart review, documentation, interview and assessment Coding Level of Care Code Est Pt Level 4 (86383) Diagnoses Atherosclerotic cardiovascular disease I25.10 Chest discomfort R07.89 Essential hypertension I10 Other and unspecified hyperlipidemia E78.5 Preoperative cardiovascular examination Z01.810 CPT Codes EKG - CPT: 92683-[id number], Complete ([id number]) Time Spent (min) 28
== END 2023-05-25 14:45 | disposition home or self-care (01) ==
PROVIDERS: PCP Registered Nurse; Visit Provider Nurse Practitioner Family
DX: I25.10 Atherosclerotic heart disease of native coronary artery without angina pectoris (principal); R07.89 Other chest pain; I10 Essential (primary) hypertension; E78.5 Hyperlipidemia, unspecified; Z01.810 Encounter for preprocedural cardiovascular examination
CPT/HCPCS: 93010; 99214

== ENCOUNTER → 2023-05-25 13:51 | Outpatient (BNVA) | payer MEDICARE, SELFPAY | PROVIDERS: PCP Registered Nurse; Visit Provider Nurse Practitioner Family | DX: Z01.810 Encounter for preprocedural cardiovascular examination (principal); I25.10 Atherosclerotic heart disease of native coronary artery without angina pectoris; R07.89 Other chest pain; I10 Essential (primary) hypertension; E78.5 Hyperlipidemia, unspecified | CPT/HCPCS: 93005; 99212 ==

== ENCOUNTER → 2023-06-03 07:55 | Outpatient (REF) | payer MEDICARE, SELFPAY | LOC: HO.SL 07:55 | PROVIDERS: Visit Provider Internal Medicine | DX: G47.33 Obstructive sleep apnea (adult) (pediatric) (principal) | CPT/HCPCS: 95806 ==

== ENCOUNTER → 2023-06-03 08:09 | Outpatient (BNV) | payer MEDICARE, SELFPAY | PROVIDERS: Visit Provider Internal Medicine | DX: G47.33 Obstructive sleep apnea (adult) (pediatric) (principal) | CPT/HCPCS: 95806 ==

== ENCOUNTER 2023-09-16 07:58 | Outpatient (AMB) | payer MEDICARE, SELFPAY ==
--- NOTE | 2023-09-16 08:15 | MHC.OFFVIS ---
Intake Vital Signs 09/16/23 08:16 Height 5 ft 4 in Weight 227 lb 1.218 oz BMI 39.0 BP 120/72 Blood Pressure Location Lt brachial Position Sitting Pulse 83 Pulse Source Pulse Oximeter Intake Visit Reasons: F/u Patient request [employer] Operator Required: No Allergies meperidine [From DEMEROL] Adverse Reaction (Mild, Verified 09/16/23 08:19) VOMITING Papayas Allergy (Unknown, Uncoded 09/16/23 08:19) unknown Medication List - Last Reconciled 09/16/23 by Daly Chew NP-C allopurinol 100 mg PO DAILY aspirin (Adult Aspirin Regimen) 81 mg PO DAILY colchicine 0.6 mg PO DAILY cyanocobalamin (vitamin B-12) 1,000 mcg IM ergocalciferol (vitamin D2) 1,250 mcg PO QWEEK esomeprazole magnesium 20 mg PO DAILY hydrochlorothiazide 12.5 mg PO DAILY multivitamin 1 tab PO DAILY rosuvastatin 20 mg PO DAILY HPI F/u Patient request HPI Details Giuliana is a 72-year-old female with past medical history of obesity, hypertension, hyperlipidemia, CAD with elevated coronary calcium score who presents for follow-up. Today she reports intermittent pressure and aching sensations in her left chest into her left shoulder and left upper arm. She made this appointment today as she is concerned about this symptom. She has some tenderness to palpation but is not sure that that is exactly what she is feeling. Her symptoms are more noticeable at rest. She has been in physical therapy for her knee having recently undergone a total knee replacement and does not get her chest discomfort with her exercises. No shortness of breath, palpitations, lightheadedness, presyncope, syncope, PND, orthopnea or edema. Taking meds as directed. [facility] Medical History Essential hypertension Low back pain Neck pain of over 3 months duration Fibromyalgia Polyarticular osteoarthritis Leg edema Obstructive sleep apnea Polymyalgia rheumatica Other and unspecified hyperlipidemia Atherosclerotic cardiovascular disease Surgical History Total knee replacement status History of hysterectomy History of cholecystectomy History of tonsillectomy and adenoidectomy Family History Father CVD (cardiovascular disease) Mother No problems noted. Social History Patient Tobacco Use Status: Never used Tobacco Review of Systems Const All systems reviewed & are unremarkable except as noted in HPI and below ENT Denies dizziness Card Reports chest pain, Denies chest pain at rest, Denies chest pain with activity, Denies rapid heart rate, Denies pedal edema, Denies edema, Denies leg edema, Denies lightheadedness, Denies palpitations, Denies dyspnea, Denies dyspnea on exertion and Denies orthopnea Resp Denies cough, Denies dyspnea and Denies dyspnea on exertion GI Denies hematochezia and Denies change in stool character Musc Denies abnormal gait, Denies limited range of motion, Denies muscle cramps, Denies muscle weakness, Denies numbness, Denies radiating pain into limb, Denies stiffness and Denies tingling Neuro Denies abnormal gait, Denies dizziness, Denies numbness and Denies tingling Endo Denies palpitations Physical Exam Vital Signs: Last Vital Signs Pulse 83 09/16/23 08:16 BP 120/72 09/16/23 08:16 BMI result Body Mass Index 39.0 Const General: cooperative, healthy appearing, comfortable and no acute distress Orientation/consciousness: patient oriented x3 Neck Neck: Yes normal visual inspection Resp Effort & Inspection: normal respiratory effort Auscultation: clear to auscultation bilaterally, no crackles, no rales, no rhonchi and no wheezes Cardio Jugular venous distension: no JVD Rate: regular rate Rhythm: regular rhythm Heart sounds: S1 normal heart sound present, S2 normal heart sound present, no murmurs and no rubs Neuro General: patient oriented x3 Extrem General: Yes normal to inspection Psych Appearance: grossly normal Mental Status: mental status grossly normal Speech and movement: Normal speech and movement present Assessment & Plan Assessment & Plan (1) Atherosclerotic cardiovascular disease: Code(s): I25.10 - Atherosclerotic heart disease of [place] coronary artery without angina pectoris Plan: History of CAD. Elevated calcium score 355 on 05/07/2020, primarily in the LAD. She has been on medications for risk factor modification. On prior visit she did report atypical sounding chest discomfort, reproducible with palpation. She underwent a nuclear stress test on 05/19/2023 showing normal myocardial perfusion imaging. An echocardiogram done 05/19/2023 showed EF 60-65%, calcific aortic valve and mitral valve each with no regurgitation or stenosis, No regional wall motion abnormalities reported. Today she reports that she continues to have discomfort in the left chest, shoulder and left arm. She is still concerned this may be cardiac discomfort. It mostly occurs at rest and is not brought on by physical activity. There is some discomfort brought on by left arm movements and palpation of the left chest but she is not sure if that is the same pain she is feeling. For further evaluation will order a CTA of the coronary arteries. BMP ordered. Signs and symptoms of angina reviewed. Continue aspirin 81 mg daily indefinitely. Continue rosuvastatin with ideal LDL goal less than 70. Continue hydrochlorothiazide for good blood pressure control. Benefits of weight loss and exercise reviewed with her. Cardiology follow-up in when results are available, sooner if needed. (2) Chest discomfort: Code(s): R07.89 - Other chest pain Plan: As above (3) Essential hypertension: Code(s): I10 - Essential (primary) hypertension Plan: Well controlled at present. (4) Other and unspecified hyperlipidemia: Code(s): E78.5 - Hyperlipidemia, unspecified Plan: [place] LDL goal less than 70. No recent lipid profile for review in our system. Follows with her PCP. Continue rosuvastatin 20 mg daily. Plan Time spent on chart review, documentation, interview and assessment Orders: Orders CT Cardiac Coronary Angio Today I10 - Essential (primary) hypertension, I25.10 - Atherosclerotic heart disease of [place] coronary artery without angina pectoris, R07.89 - Other chest pain Basic Metabolic Panel Today I25.10 - Atherosclerotic heart disease of [place] coronary artery without angina pectoris Coding Level of Care Code Est Pt Level 4 (73603) Diagnoses Atherosclerotic cardiovascular disease I25.10 Chest discomfort R07.89 Essential hypertension I10 Other and unspecified hyperlipidemia E78.5 Time Spent (min) 28
[2023-09-16 08:16] VITALS: BP 120/72; PULSE 83; BMI 39.0
== END 2023-09-16 08:42 | disposition home or self-care (01) ==
PROVIDERS: PCP Registered Nurse; Visit Provider Nurse Practitioner Family
DX: I25.10 Atherosclerotic heart disease of native coronary artery without angina pectoris (principal); R07.89 Other chest pain; I10 Essential (primary) hypertension; E78.5 Hyperlipidemia, unspecified
CPT/HCPCS: 99214

== ENCOUNTER → 2023-09-16 07:58 | Outpatient (BNVA) | payer MEDICARE, SELFPAY | PROVIDERS: PCP Registered Nurse; Visit Provider Nurse Practitioner Family | DX: I25.10 Atherosclerotic heart disease of native coronary artery without angina pectoris (principal); I10 Essential (primary) hypertension; R07.89 Other chest pain; E78.5 Hyperlipidemia, unspecified | CPT/HCPCS: 99212 ==

== ENCOUNTER 2023-11-09 11:00 | Outpatient (RCR) | payer MEDICARE, SELFPAY | END 2023-11-09 13:01 | disposition home or self-care (01) | LOC: HO.PT 11:00 | PROVIDERS: PCP Registered Nurse; Visit Provider Orthopaedic Surgery | DX: Z96.652 Presence of left artificial knee joint (principal) | CPT/HCPCS: 97110; 97112; 97140; 97161; 97530 ==

== ENCOUNTER 2024-02-22 11:31 | Outpatient (REF) | payer MEDICARE, SELFPAY ==
[2024-02-22 13:38] LABS: Anion Gap 13 (12-20); Blood Urea Nitrogen 16 mg/dL (9-16); Carbon Dioxide 32 mmol/L (22-29); Chloride 102 mmol/L (96-108); Estimated Glomerular Filt Rate 55; Glucose Random 121 mg/dL (60-115); Potassium 3.3 mmol/L (3.3-5.1); Sodium 144 mmol/L (135-145)
== END 2024-02-22 11:32 | disposition home or self-care (01) ==
LOC: HO.10HDL 11:31
PROVIDERS: Visit Provider Nurse Practitioner Family
DX: I25.10 Atherosclerotic heart disease of native coronary artery without angina pectoris (principal)
CPT/HCPCS: 36415; 80048

== ENCOUNTER 2024-03-22 13:06 | Outpatient (AMB) | payer MEDICARE, SELFPAY ==
[2024-03-22 13:09] VITALS: BP 142/76; PULSE 83; BMI 39.7
--- NOTE | 2024-03-22 13:09 | A.OFFVIS_ITS ---
Vital Signs 03/22/24 13:09 Height 5 ft 4 in Weight 231 lb 0.711 oz BMI 39.7 BP 142/76 H Blood Pressure Location Lt brachial Position Sitting Pulse 83 Intake Visit Reasons: Follow up after coronary CTA Kiln Burner Required: No Allergies meperidine [From DEMEROL] Adverse Reaction (Mild, Verified 09/16/23 08:19) VOMITING [place] Allergy (Unknown, Uncoded 09/16/23 08:19) unknown Medication List - Last Reconciled 03/22/24 by Gomez Hale MD allopurinol 300 mg PO DAILY aspirin (Adult Aspirin Regimen) 81 mg PO DAILY cholestyramine (with sugar) 4 gram (Questran) ea PO DAILY PRN colchicine 0.6 mg PO DAILY cyanocobalamin (vitamin B-12) 1,000 mcg IM ergocalciferol (vitamin D2) 1,250 mcg PO QWEEK esomeprazole magnesium 20 mg PO DAILY hydrochlorothiazide 12.5 mg PO DAILY loperamide 2 mg PO Q6H PRN magnesium 250 mg PO DAILY multivitamin 1 tab PO DAILY rosuvastatin 20 mg PO DAILY HPI Comments Details: Giuliana returns for follow-up regarding coronary disease. She was last seen by me in 2022 and after that, couple of times by our nurse practitioner. She still gets some sharp chest pains in the left side, nonexertional. Can happen randomly. She does have risk factors including being overweight. Chronic inflammation from suspected polymyalgia rheumatica. Since last seen, she is mostly feeling fine. Still gets random chest pains. She has completed a coronary CTA. [facility] Medical History Essential hypertension Low back pain Neck pain of over 3 months duration Fibromyalgia Polyarticular osteoarthritis Leg edema Obstructive sleep apnea Polymyalgia rheumatica Other and unspecified hyperlipidemia Atherosclerotic cardiovascular disease Surgical History Total knee replacement status History of hysterectomy History of cholecystectomy History of tonsillectomy and adenoidectomy Family History Father CVD (cardiovascular disease) Mother No problems noted. Social History (Updated 03/22/24 @ 13:15 by Tasha Martel CMA) Alcohol intake: former Patient Tobacco Use Status: Never used Tobacco Review of Systems Const Denies chills, Denies fatigue, Denies fever(s), Denies weight gain and Denies weight loss ENT Denies dizziness Card Denies chest pain, Denies leg edema, Denies lightheadedness, Denies palpitations, Denies dyspnea on exertion, Denies orthopnea and Denies other Resp Denies cough and Denies dyspnea on exertion GI Denies hematochezia and Denies change in stool character Musc Denies abnormal gait, Denies muscle weakness, Denies numbness, Denies radiating pain into limb and Denies tingling Neuro Denies abnormal gait, Denies dizziness, Denies numbness and Denies tingling Endo Denies fatigue and Denies palpitations Physical Exam Vital Signs: Last Vital Signs Pulse 83 03/22/24 13:09 BP 142/76 H 03/22/24 13:09 BMI result Body Mass Index 39.7 Const General: comfortable and no acute distress Orientation/consciousness: patient oriented x3 HEENT Other: Unremarkable Head: Yes normal to inspection Neck Neck: Yes normal visual inspection Chest Chest palpation & inspection: normal inspection of the chest Resp Auscultation: clear to auscultation bilaterally Cardio Palpation: normal PMI Heart sounds: S1 normal heart sound present, S2 normal heart sound present, no gallops, no murmurs and no rubs GI Palpation (GI): Soft to palpation Back/Spine/Pelvis Other: unremarkable Skin General skin exam: no rashes or lesions noted Neuro General: patient oriented x3 Extrem General: Yes normal to inspection Psych Mental Status: mental status grossly normal Office Procedures EKG Details: EKG with underlying sinus rhythm at 83/Min; sinus arrhythmias; can not exclude old inferior infarct; [place]. [address]-[id number], Complete Assessment & Plan Assessment & Plan (1) Atherosclerotic cardiovascular disease: Code(s): I25.10 - Atherosclerotic heart disease of [place] coronary artery without angina pectoris Category: Medical Plan: Cardiac studies reviewed. In the past (05/2020), coronary CTA could not be completed due to gating issues as well as obesity and she only had a calcium scoring CT. Total calcium score is 355. Majority in the LAD; mild calcification left main and right coronary artery. Circumflex did not have any calcification at all. Coronary CTA-02/2024-calcific plaque at left main causing 25% stenosis. Moderate calcified plaque in the LAD from proximal portion to proximal part of distal LAD with multifocal 25-50% stenosis. Minimal circumflex/RCA stenosis. For the FFR, gradual decline in the LAD, from 0.86-0.73. Otherwise unremarkable. Myocardial perfusion imaging studies from 2019 and 2022 showed normal perfusion. Overall, she has nonobstructive CAD but it does not appear that there is anything hemodynamically significant. FFR in the LAD is mildly positive but stenosis is at most 50% and her symptoms are also nonexertional, atypical and chronic. More suggestive of rather inflammatory pain. Continue aggressive medical therapy for risk factor modification. Continue aspirin. Previously cholesterol is well controlled. Per prior documentation, LDL was 42 mg/dL. She will send us more up-to-date labs. If any exertional type chest pains, will need to reassess. We discussed about these today. She feels relieved and less anxious after the discussion. (2) Essential hypertension: Code(s): I10 - Essential (primary) hypertension Category: Medical Plan: Borderline blood pressure. She states that her Hydrochlorothiazide was cut back as she has gout. She will check her home blood pressures and let us know. If it still stays high, may need additional medications. (3) Obstructive sleep apnea: Code(s): G47.33 - Obstructive sleep apnea (adult) (pediatric) Category: Medical Plan: There is a history of BETTY, but does not use any CPAP mask. Advised her to follow-up on this. (4) Morbid obesity: Code(s): E66.01 - Morbid (severe) obesity due to excess calories Category: Medical Plan: We discussed about weight loss and implications for cardiovascular and general health. She understands. Plan She will contact us with any ongoing concerns. She will contact us with blood pressure readings as well as recent labs. Follow-up in 1 year. Coding Level of Care Code Est Pt Level 4 (22891) Diagnoses Atherosclerotic cardiovascular disease I25.10 Essential hypertension I10 Obstructive sleep apnea G47.33 Morbid obesity E66.01 CPT Codes EKG - CPT: 99051-[id number], Complete ([id number])
== END 2024-03-22 13:41 | disposition home or self-care (01) ==
PROVIDERS: PCP Registered Nurse; Visit Provider Internal Medicine
DX: I25.10 Atherosclerotic heart disease of native coronary artery without angina pectoris (principal); I10 Essential (primary) hypertension; G47.33 Obstructive sleep apnea (adult) (pediatric); E66.01 Morbid (severe) obesity due to excess calories
CPT/HCPCS: 93010; 99214

== ENCOUNTER → 2024-03-22 13:06 | Outpatient (BNVA) | payer MEDICARE, SELFPAY | PROVIDERS: PCP Registered Nurse; Visit Provider Internal Medicine | DX: I25.10 Atherosclerotic heart disease of native coronary artery without angina pectoris (principal); I10 Essential (primary) hypertension; G47.33 Obstructive sleep apnea (adult) (pediatric); E66.01 Morbid (severe) obesity due to excess calories; Z68.39 Body mass index [BMI] 39.0-39.9, adult | CPT/HCPCS: 93005; 99212 ==

== ENCOUNTER 2024-09-28 11:00 | Outpatient (RCR) | payer MEDICARE, SELFPAY | END 2024-09-28 16:49 | disposition home or self-care (01) | LOC: HO.PT 11:00 | PROVIDERS: PCP Registered Nurse; Visit Provider Orthopaedic Surgery | DX: Z47.1 Aftercare following joint replacement surgery (principal); Z96.651 Presence of right artificial knee joint | CPT/HCPCS: 97110; 97116; 97140; 97161 ==

== ENCOUNTER 2024-12-06 14:40 | Outpatient (AMB) | payer MEDICARE, SELFPAY ==
--- NOTE | 2024-12-06 14:45 | A.OFFVIS_ITS ---
Vital Signs 12/06/24 14:46 Height 5 ft 4 in Weight 231 lb 7.766 oz BMI 39.7 BP 138/80 Blood Pressure Location Lt brachial Position Sitting Pulse 86 Pulse Source Monitor Intake Visit Reasons: Follow up Allergies meperidine (From DEMEROL) Adverse Reaction (Mild, Verified 09/16/23 08:19) VOMITING Pap[place]as Allergy (Unknown, Uncoded 09/16/23 08:19) unknown Medication List - Last Reconciled 12/06/24 by Gomez Hale MD allopurinol 300 mg PO DAILY aspirin (Adult Aspirin Regimen) 81 mg PO DAILY cholestyramine (with sugar) 4 gram (Questran) ea PO DAILY PRN cyanocobalamin (vitamin B-12) 1,000 mcg IM ergocalciferol (vitamin D2) 1,250 mcg PO QWEEK esomeprazole magnesium 20 mg PO DAILY hydrochlorothiazide 12.5 mg PO DAILY loperamide 2 mg PO Q6H PRN magnesium 250 mg PO DAILY multivitamin 1 tab PO DAILY rosuvastatin 20 mg PO DAILY HPI Comments Details: Giuliana returns for follow-up regarding coronary disease. In the past, she has had some random chest pains and that led to coronary CTA. 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 Medical management with aspirin and statins. Otherwise, history of chronic inflammation from suspected polymyalgia rheumatica. She has been on steroids in the past. Currently, main concern is just cough for the last 2 months accompanied by some shortness of breath. She does not really have any clear-cut anginal-type chest pains. She wanted to ensure there is no cardiac etiology for this. [facility] Medical History Essential hypertension Low back pain Neck pain of over 3 months duration Fibromyalgia Polyarticular osteoarthritis Leg edema Obstructive sleep apnea Polymyalgia rheumatica Other and unspecified hyperlipidemia Atherosclerotic cardiovascular disease Surgical History Total knee replacement status History of hysterectomy History of cholecystectomy History of tonsillectomy and adenoidectomy Family History Father CVD (cardiovascular disease) Mother No problems noted. Social History (Updated 03/22/24 @ 13:15 by Tasha Martel CMA) Alcohol intake: former Patient Tobacco Use Status: Never used Tobacco Review of Systems Const Denies weakness ENT Denies dizziness Card Denies chest pain, Denies chest pain with activity, Denies syncope, Denies rapid heart rate, Denies pedal edema, Denies edema, Denies leg edema, Denies lightheadedness, Denies palpitations, Reports dyspnea, Denies dyspnea on exertion and Denies orthopnea Resp Reports chest congestion, Reports cough, Reports dyspnea and Denies dyspnea on exertion GI Denies hematochezia and Denies change in stool character Musc Denies abnormal gait, Denies muscle cramps, Denies muscle weakness, Denies numbness, Denies radiating pain into limb and Denies tingling Neuro Denies abnormal gait, Denies dizziness, Denies syncope, Denies numbness, Denies tingling and Denies weakness Endo Denies palpitations Physical Exam Vital Signs: Last Vital Signs Pulse 86 12/06/24 14:46 BP 138/80 12/06/24 14:46 BMI result Body Mass Index 39.7 Const General: comfortable and no acute distress Orientation/consciousness: patient oriented x3 HEENT Other: Unremarkable Head: Yes normal to inspection Neck Neck: Yes normal visual inspection Chest Chest palpation & inspection: normal inspection of the chest Resp Auscultation: clear to auscultation bilaterally Cardio Palpation: normal PMI Heart sounds: S1 normal heart sound present, S2 normal heart sound present, no gallops, no murmurs and no rubs GI Palpation (GI): Soft to palpation Back/Spine/Pelvis Other: unremarkable Skin General skin exam: no rashes or lesions noted Neuro General: patient oriented x3 Extrem General: Yes normal to inspection Psych Mental Status: mental status grossly normal Office Procedures EKG Details: EKG with underlying sinus rhythm at 86/Min; cannot exclude old anterior or inferior infarct; [place] [address]-Mimllkwaaavfcwzzk, Complete Assessment & Plan Assessment & Plan (1) Atherosclerotic cardiovascular disease: Code(s): I25.10 - Atherosclerotic heart disease of [place] coronary artery without angina pectoris Category: Medical Plan: Cardiac studies reviewed. In the past (05/2020), coronary CTA could not be completed due to gating issues as well as obesity and she only had a calcium scoring CT. Total calcium score is 355. Majority in the LAD; mild calcification left main and right coronary artery. Circumflex did not have any calcification at all. Coronary CTA-02/2024-calcific plaque at left main causing 25% stenosis. Moderate calcified plaque in the LAD from proximal portion to proximal part of distal LAD with multifocal 25-50% stenosis. Minimal circumflex/RCA stenosis. For the FFR, gradual decline in the LAD, from 0.86-0.73. Otherwise unremarkable. Myocardial perfusion imaging studies from 2019 and 2022 showed normal perfusion. Echocardiogram 2022-LVEF 60-65% with normal peak global longitudinal strain. Mild aortic/mitral calcification but no significant valvular dysfunction. Overall, she has nonobstructive CAD. FFR in LAD is mildly positive but stenosis is utmost 50% and she does not have any exertional angina. Mainly risk factor modification. Aspirin and statins. No recent lipids in our system but previously well controlled. Per documentation, 42 mg/dL. With regard to the current symptoms of cough/shortness of breath, seems rather pulmonary in nature. Await that appointment. (2) Essential hypertension: Code(s): I10 - Essential (primary) hypertension Category: Medical Plan: Borderline blood pressures. In the past, hydrochlorothiazide dose was cut back because of gout. (3) Obstructive sleep apnea: Code(s): G47.33 - Obstructive sleep apnea (adult) (pediatric) Category: Medical Plan: There is a history of BETTY, but does not use any CPAP mask. (4) Morbid obesity: Code(s): E66.01 - Morbid (severe) obesity due to excess calories Category: Medical Plan: Still similar to prior weights. This may just be her long-term weight. Plan Discussion Nots I discussed with the patient that her symptoms, including the persistent cough and shortness of breath, are unlikely to be cardiac in nature. I advised her to continue with her current medications and to follow up with a room service waiter/waitress for further evaluation. We discussed the importance of monitoring her symptoms and seeking medical attention if she experiences any new or worsening symptoms, such as chest pain. Patient was informed and verbally consented to the use of an ambient scribe for clinic note documentation during this visit. Patient Instructions: - Continue taking current medications as prescribed. - Follow up with the room service waiter/waitress. - Seek medical attention if experiencing new or worsening symptoms, such as chest pain. Coding Level of Care Code Est Pt Level 4 (03481) Complex EM visit Add On G2211 Diagnoses Atherosclerotic cardiovascular disease I25.10 Essential hypertension I10 Obstructive sleep apnea G47.33 Morbid obesity E66.01 CPT Codes EKG - CPT: 80434-Geuilvxtumzfozzqb, Complete ([id number])
[2024-12-06 14:46] VITALS: BP 138/80; PULSE 86; BMI 39.7
--- OUTSIDE RECORDS SUMMARY | 2024-12-06 15:08 | XMS_ITS | Clinical Summary ---
Author Organization Patient Business Ser [facility] Address [address] [place] [address] Care Team Providers Care Associate Designer Name Role Phone Paul Gottlieb NP Primary Care Provider Allergies Active Allergy Reactions Criticality Noted Date Comments Meperidine Nausea And Vomiting 08/31/2018 Medications loperamide (IMODIUM) 2 mg capsule Take by mouth daily as needed. Active acetaminophen (TYLENOL) 325 mg tablet Take 2 tablets (650 mg total) by mouth every 6 (six) hours as needed. Active amitriptyline (ELAVIL) 10 mg tablet TAKE 1 TABLET BY MOUTH EVERYDAY AT BEDTIME 3 Active cholestyramine (QUESTRAN) 4 gram powder TAKE 4 G BY MOUTH 2 (TWO) TIMES A DAY WITH MEALS. 3 Active Cholestyramine Light 4 gram packet TAKE 1 PACKET BY MOUTH 2 TIMES A DAY. 3 Active cyanocobalamin (VITAMIN B-12) 1,000 mcg/mL injection INJECT 1 ML MONTHLY INJECTION 0 Active ergocalciferol (VITAMIN D-2) 1,250 mcg (50,000 unit) capsule TAKE 1 CAPSULE BY MOUTH ONE TIME PER WEEK 0 Active esomeprazole (NexIUM) [address] capsule 1 CAPSULE ONCE A DAY ORALLY 90 0 Active hydroCHLOROthia zide (HYDRODIURIL) 25 mg tablet TAKE 1/2 TABLET BY MOUTH EVERY DAY IN THE MORNING 0 Active mesalamine (LIALDA) 1.2 gram EC tablet Take 4 tablets (4.8 g total) by mouth daily. 2 Active rosuvastatin (CRESTOR) 10 mg tablet Take 1 tablet (10 mg total) by mouth daily. 0 Active Active Problems Problem Noted Date Diagnosed Date Anemia, normocytic normochromic 07/24/2024 Overview (07/24/2024): Check CBC Q3 months Hgb <10 needs consider BM Carotid artery disease ([facility] V24) 07/24/2024 Overview (07/24/2024): US carotids 10/2017: LEON 50-79%, LICA <50% 09/2018 US: No appreciable atherosclerotic plaque in the carotid arteries. GERD without esophagitis 07/24/2024 Hyperlipidemia 07/24/2024 IBS (irritable bowel syndrome) 07/24/2024 Overview (07/24/2024): diarrhea calprotectin neg Diarrhea of presumed infectious origin 0 Overview (07/24/2024): Added automatically from request for surgery [id number] Esophageal dysphagia 05/28/2020 Overview (07/24/2024): Added automatically from request for surgery [id number] Prediabetes 03/21/2020 Overview (07/24/2024): Last Assessment & Plan: Continue to monitor diet and I guess exercise as tolerated. If she wants Metformin in the future we can prescribe this. Stage 3 chronic kidney disease ([facility] V24, [facility] /[facility] V28) 01/11/2020 PMR (polymyalgia rheumatica) ([facility] V24) 10/05 Pedal edema 12/20/2018 Immunizations Name Administration Dates Next Due Influenza Quadravalent, MDCK , 0.5ml, preservative free (Flucelvax) 6mo and older 03/06/2013 Influenza Quadrivalent, with preservative (Fluzone; Afluria) 6mo and older 04/26/2014 Influenza trivalent, with pr eservative (Fluzone; Afluria) 6mo and older 04/16/2012 [employer] SARS-CoV-2 COVID -19, vector-nr, rS-Ad26, preservative free 08/08/2020 [employer] SARS-CoV-2 COVID-19, mRNA, LNP-S, preservative free 08/22/2020 Pneumococcal conjugate 13 va lent (Prevnar 13, PCV13) 2mo and older 08/15/2018 Pneumococcal polysaccharide 23 valent (Pneumovax 23) 2yo and older 11/08/2019 Tdap Tetanus diptheria acell ular pertussis (Boostrix; Adacel) 7yo and older 11/15/2014 Zoster recombinant (Shingrix) 19yo and older Surgical History Surgery Date Site/Laterality Comments OTHER SURGICAL HISTORY 1959 PROCEDURE:TONSILLECTOMY AND ADENOIDECTOMY OTHER SURGICAL HISTORY 1992 PROCEDURE:gallbladder OVARIAN CYST REMOVAL 1992 PROCEDURE:OVARIAN CYST REMOVAL HYSTERECTOMY 1994 PROCEDURE:HYSTERECTOMY;CO MMENT:BSO h/o ENDOMETRIAL cA KNEE ARTHROSCOPY 2005 Left PROCEDURE:KNEE ARTHROSCOPY SINUS SURGERY 2009 PROCEDURE:SINUS SURGERY FACIAL FRACTURE SURGERY 1979 PROCEDURE:FACIAL FRACTURE SURGERY COLONOSCOPY 10/2015 PROCEDURE:COLONOSCOPY;COM MENT:TIC FLEXIBLE SIGMOIDOSCOPY 08/10/2018 PROCEDURE:SIGMOIDOSCOPY;C OMMENT:Mild TIC, CHOLECYSTECTOMY 1992 PROCEDURE:CHOLECYSTECTOMY ESOPHAGOGASTRODUODENOSCOPY 10/2015 PROCEDURE:ESOPHAGOGASTROD UODENOSCOPY;COMMENT:H Hernia, bx wnl COLONOSCOPY 07/01/2020 N/A PROCEDURE:COLONOSCOPY;COM MENT:Procedure: COLONOSCOPY; Surgeon: Reyes Fenton DO; Location: [facility]; Service: Gastroenterology; Laterality: N/A; UPPER GASTROINTESTINAL ENDOSCOPY 07/01/2020 N/A PROCEDURE:UPPER GASTROINTESTINAL ENDOSCOPY;COMMENT:Procedu re: UPPER ENDOSCOPY-EGD; Surgeon: Reyes Fenton DO; Location: [facility]; Service: Gastroenterology; Laterality: N/A; Medical History Medical History Date Comments Hyperlipidemia DX:Hyperlipidemi a IBS (irritable bowel syndrome) D X:IBS (irritable bowel syndrome);COMMENT:diarrhea calprotectin neg, WelChol Hiatal hernia DX:Hiatal hernia ;COMMENT:EGD 10/2015 Fibromyalgia DX:Fibromyalgia Osteoarthritis DX:Osteoarthriti s History of endometrial cancer 1994 DX :History of endometrial cancer History of colon polyps DX:Histo ry of colon polyps Screening for breast cancer DX:S creening for breast cancer;COMMENT:10/2018 incomplete needs repeat films RT, 11/2018 benign Screening for osteoporosis DX:Sc reening for osteoporosis;COMMENT:DXA 2012 WNL, 02/2019: Normal Screening for ovarian cancer DX: Screening for ovarian cancer Screening for colon cancer DX:Sc reening for colon cancer;COMMENT:Colonoscopy: 2016: Normal, Sigmoidoscopy: 08/2018 Mild TIC, INt hemm Carotid artery disease ([facility] V24) DX:Carotid artery disease ([facility]);COMMENT:US carotids 10/2017: LEON 50-79%, LICA <50% 09/2018 US: No appreciable atherosclerotic plaque in the carotid arteries. History of Clostridium diffi cile colitis 05/2017 DX:History of Clostridium di fficile colitis;COMMENT:Tx with flagyl Irritable bowel syndrome with diarrhea DX:Irritable bowel syndrome with diarrhea GERD without esophagitis DX:GERD without esophagitis Benign familial tremor DX:Benign familial tremor;COMMENT:NCV/EM10/2017 normal motor/sensory NCV upper ext, mild sensory axonal neuropathy lower ext. Normal EMG RT C5-T1, Rt L4-S1 innervated muscles., EEG: WNL, CT brain Normal H/O babesiosis 2003 DX:H/O babesiosi s Peripheral neuropathy DX:Periphe ral neuropathy Low back pain DX:Low back pain ;COMMENT:04/2018 L-S films: Grade 1 spondy, Deg changes L4-5,L5-S1, bilat L4-5, L5-S1 facet arthropathy, 02/2020 L-MRI: Spondy L5-S1 moderate left foraminal narrowing Anemia, normocytic normochromic DX:Anemia, normocytic normochromic;COMMENT:Check CBC Q3 months Hgb <10 needs consider BM CKD (chronic kidney disease) stage 3, GFR 30-59 ml/min (CMS/HCC V24, CMS/[facility] V28) DX:CKD (chronic kidney disea se) stage 3, GFR 30-59 ml/min ([facility]) Babesiosis 2003 DX:Babesiosis PMR (polymyalgia rheumatica) ([facility] V24) 10/2019 DX:PMR (polymyalgia rheumati ca) ([facility]) Hypomagnesemia 10/2019 DX:Hypomagnesemi a History of nuclear stress test 2014 D X:History of nuclear stress test;COMMENT:poor exercise capacity 4 minutes BETTY (obstructive sleep apnea) DX :BETTY (obstructive sleep apnea);COMMENT:not use CPAP History of echocardiogram 10/2019 DX:His tory of echocardiogram;COMMENT:Grade 1 DD, Normal LVSF History of nuclear stress test 10/2019 D X:History of nuclear stress test;COMMENT:LVEF 68%, normal myocardial perfusion, Current chronic use of syste carmen steroids 11/2019 DX:Current chronic use of sy stemic steroids;COMMENT:PMR Macular degeneration 12/2019 DX:Macular degeneration;COMMENT:nonexudative Angina pectoris (CMS/HCC V24) DX :Angina pectoris (HCC);COMMENT:10/24 - cardiac workup completed Family History Medical History Relation Name Comments Heart attack Father Arthritis Mother Diabetes Mother Hypertension Mother Relation Name Status Comments Father Mother Alive Social History Tobacco Use Types Packs/Day Years Used Date Smoking Tobacco: Never Smokeless Tobacco: Never Alcohol Use Standard Drinks/Week Comments No 0 (1 standard drink = 0.6 oz pur e alcohol) Comments Unknown Sex and Gender Information Value Date Recorded Sex Assigned at Not on file Legal Sex Female 5:41 PM EST Gender Identity Not on file Sexual Orientation Not on file Obstetrics History Last Filed Vital Signs Vital Sign Reading Time Taken Comments Blood Pressure 136/80 12/29/2022 3:15 PM EDT Pulse 66 12/29/2022 3:15 PM EDT Temperature - - Respiratory Rate - - Oxygen Saturation - - Inhaled Oxygen Concentration - - Weight 97.5 kg (215 lb) 12/29/2022 3:15 PM EDT Height 162.6 cm (5' 4 ) 12/29/2022 3:15 PM EDT Body Mass Index 36.9 12/29/2022 3:15 PM EDT Plan of Treatment Health Maintenance Due Date Last Done Comments Breast Cancer Screening 1950 Zoster Vaccines (2 of 2) 09/27/2019 08/02/2019 Depression Screening 07/04/2021 Falls Risk Assessment 07/04/2021 Osteoporosis Screening (Bone Density Screening) 07/04/2021 Social Influencers of Health Screening 07/04/2021 COVID-19 Vaccine (3 - 2023-2 5 season) 2024 08/22/2020, 08/08/2020 DTaP,Tdap,and Td Vaccines (2 - Td or Tdap) 11/15/2024 11/15/2014 Influenza Vaccine (Season Ended) 2025 04/26/2014, 03/06/2013, 04/16/2012 Cholesterol Screening (Lipid Panel) 06/12/2027 06/12/2022 RSV Immunization Adult Patients (1 - 1-dose 75+ series) 12/03/2027 Colorectal Cancer Screening: Colonoscopy 07/01/2030 07/01/2020 Hepatitis C Screening Completed 09/19/2018 Pneumococcal Vaccine: 50+ Years Completed 11/08/2019, 08/15/2018 HIB Vaccines Aged Out No longer eligi ble based on patient's age to complete this topic HPV Vaccines Aged Out No longer eligi ble based on patient's age to complete this topic Hepatitis A Vaccines Aged Out No long er eligible based on patient's age to complete this topic Hepatitis B Vaccines Aged Out No long er eligible based on patient's age to complete this topic IPV Vaccines Aged Out No longer eligi ble based on patient's age to complete this topic MMR Vaccines Aged Out No longer eligi ble based on patient's age to complete this topic Meningococcal ACWY Vaccine Aged Out N o longer eligible based on patient's age to complete this topic Meningococcal B Vaccine Aged Out No l onger eligible based on patient's age to complete this topic RSV Immunization Patients Under 20 months Aged Out No longer eligible b ased on patient's age to complete this topic Varicella Vaccines Aged Out No longer eligible based on patient's age to complete this topic Procedures Procedure Name Priority Date/Time Associated Diagnosis Comments LIPID PANEL Routine 06/12/2022 COLONOSCOPY Routine 07/01/2020 HEPATITIS C SCREENING Routine 09/19/2018 from Last 3 Months or Most Recently Relevant to Health Maintenance Results * Lipid panel (06/12/2022) LDL/HDL Ratio 0 Comment:no interpretation, a bstracted Triglycerides 0 mg/dL Comment:no interpretation, a bstracted Cholesterol 0 mg/dL Comment:no interpretation, a bstracted HDL 0 mg/dL Comment:no interpretation, a bstracted LDL Cholesterol 0 mg/dL Comment:no interpretation, a bstracted Blood Venous blood specimen / Unknown Historical Provider LAB BLOOD ORDERABLES Gabby l Result * Colonoscopy (07/01/2020) Pathologist [facility] Colonoscopy no interpretation , abstracted Anatomical Region Laterality Modality Other Historical Provider HEALTH MAINTENANCE Final Result * Hepatitis C Screening (09/19/2018) [facility] Hepatitis C Screening abstrated [facility] Provider HEALTH MAINTENANCE Final Result from Last 3 Months or Most Recently Relevant to Health Maintenance Care Teams Associate Designer Relationship Specialty Start Date End Date Paul Gottlieb NP [address] [place] [address] PCP - General 12/29/22
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
--- OUTSIDE RECORDS SUMMARY | 2024-12-06 15:08 | XMS_ITS | Clinical Summary ---
Author Organization [facility] Facility Address [address] [place] [id number] Care Team Providers Care Eyeglass Inspector Name Role Phone Racquel Greenfield DO Primary Care Provider [phone] Allergies Active Allergy Reactions Criticality Noted Date Comments Meperidine Nausea And Vomiting, Other (see comments) 08/31/2018 Medications loperamide (IMODIUM) 1 MG/5ML solution Take by mouth Active MULTIPLE VITAMINS-MINERA LS PO Take by mouth Active acetaminophen (TYLENOL) 500 MG tablet Take 500 mg by mouth twice a day Active Biotin 10 MG tablet Take 10,000 mcg by mouth daily Active calcium carbonate 1500 (600 Ca) MG tablet Take 600 mg by mouth daily Active colestipol (COLESTID) 1 g tablet Take 1 tablet once daily before first meal and increase if necessary 1 Active cyanocobalamin (VITAMIN B-12) 1000 MCG/ML injection Inject 1,000 mcg into the shoulder, thigh, or buttocks 0 Active ergocalciferol (VITAMIN D-2) 1.25 MG (01272 UT) capsule Take 1 capsule by mouth 1 (one) time per week 9 Active esomeprazole (NexIUM) [address] capsule 1 capsule Orally Once a day 6 Active hydroCHLOROthia zide (HYDRODIURIL) 25 MG tablet Take 25 mg by mouth daily 9 Active Magnesium 400 MG capsule Take 200 mg by mouth 1 (one) time each day 0 Active modafinil (PROVIGIL) 200 MG tablet Take 1 tablet by mouth 1 (one) time each day Active predniSONE (DELTASONE) 10 MG tablet Take 6 mg by mouth 1 (one) time each day Active rosuvastatin (CRESTOR) 20 MG tablet Take 1 tablet by mouth 1 (one) time each day Active ketoconazole (NIZORAL) 2 % cream APPLY TO RASH UNDER BREASTS TWICE A DAY UNTIL CLEAR. 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 US carotids 10/2017: LEON 50-79%, LICA <50% 09/2018 US: No appreciable atherosclerotic plaque in the carotid arteries. Repeated 09/2018 without significant change. Familial tremor 05/29/2020 Fatigue 05/29/2020 Hiatal hernia 05/29/2020 Hypertension 05/29/2020 Overview (10/02/2020): Last Assessment & Plan: Well-managed Impaired glucose tolerance 05/29/2020 Obstructive sleep apnea syndrome 05/29/2020 Osteoarthritis 05/29/2020 Tinnitus 05/29/2020 Vitamin D deficiency 05/29/2020 Diarrhea of presumed infectious origin 0 Overview (10/02/2020): Added automatically from request for surgery [id number] Esophageal dysphagia 05/28/2020 Overview (10/02/2020): Added automatically from request for surgery [id number] Drug-induced obesity 03/21/2020 Overview (10/02/2020): Last Assessment & Plan: Unfortunately Florentino was denied. She is also having doubts about using this medication because of the potential adverse effects. I explained to her that the medication has adverse affects and it does not mean that she is going to have them. She cannot want to use the Qsymia because of the topiramate component which she could not tolerate in the past. She is now willing to try Contrave she states that she is not taking opioids and she will stop the medications if she plans any future surgical therapy. I let her know how long enough that she has to stop this medication and I informed her of this. Prediabetes 03/21/2020 Overview (10/02/2020): Last Assessment & Plan: Continue to monitor diet and I guess exercise as tolerated. If she wants Metformin in the future we can prescribe this. Obese 03/21/2020 Overview (10/02/2020): Last Assessment & Plan: Unfortunately Florentino was denied. She is also having doubts about using this medication because of the potential adverse effects. I explained to her that the medication has adverse affects and it does not mean that she is going to have them. She cannot want to use the Qsymia because of the topiramate component which she could not tolerate in the past. She is now willing to try Contrave she states that she is not taking opioids and she will stop the medications if she plans any future surgical therapy. I let her know how long enough that she has to stop this medication and I informed her of this. Stage 3 chronic kidney disease 01/11/2020 Polymyalgia rheumatica 10/06/2019 Edema of foot 12/20/2018 Family History Medical History Relation Comments Diabetes Mother Hypertension Mother Relation Status Comments Mother Social History Tobacco Use Types Packs/Day Years Used Date Smoking Tobacco: Never Smokeless Tobacco: Never Alcohol Use Standard Drinks/Week Comments No 0 (1 standard drink = 0.6 oz pur e alcohol) Comments Unknown Sex and Gender Information Value Date Recorded Sex Assigned at Not on file Legal Sex Female 4:57 PM EST Gender Identity Not on file Sexual Orientation Not on file Last Filed Vital Signs Vital Sign Reading Time Taken Comments Blood Pressure 139/67 06/24/2020 12:00 PM EST Pulse 80 06/24/2020 12:00 PM EST Temperature - - Respiratory Rate - - Oxygen Saturation 94% 06/24/2020 12:00 PM EST Inhaled Oxygen Concentration - - Weight 118 kg (260 lb) 10/04/2020 1:56 PM EDT Height - - Body Mass Index - - Plan of Treatment Health Maintenance Due Date Last Done Comments Breast Cancer Screening 1950 Colorectal Cancer Screening: Annual FOBT 2001 Colorectal Cancer Screening: Sigmoidoscopy 2001 Influenza Vaccine (#1) 2025 8, 03/24/2016, 04/26/2014, Additional history exists Colorectal Cancer Screening: Colonoscopy 07/01/2030 07/01/2020 Pneumococcal Vaccine: 50+ Years Completed 11/08/2019, 08/15/2018, 05/07/2016 Pneumococcal Vaccine: Peds (0 to 5 Years) and At-Risk Patients (6 to 49 Years) Discontinued 11/08/2019, 08/15/2018, 05/07/2016 Hepatitis B Vaccine Aged Out No longe r eligible based on patient's age to complete this topic Insurance [facility] Medicare UHC Medicare Care Teams Eyeglass Inspector Relationship Specialty Start Date End Date Racquel Greenfield DO PCP - General 06/17/20
--- OUTSIDE RECORDS SUMMARY | 2024-12-06 15:08 | XMS_ITS | Clinical Summary ---
Author Organization [facility] Address [address] [place] [address] Care Team Providers Care Scheduling Assistant Name Role Phone Paul Gottlieb APRN Primary Care Provider [phone] Allergies Active Allergy Reactions Criticality Noted Date Comments Meperidine Nausea And Vomiting 08/31/2018 Medications Medication Sig Dispensed Refills Start Date End Date Status esomeprazole (NexIUM) capsule 20 mg 1 CAPSULE ONCE A DAY ORALLY 90 30 capsule 2 06/20/2019 Active rosuvastatin (CRESTOR) tablet 10 mg Take 1 tablet (10 mg total) by mouth daily. 90 tablet 3 10/23/2019 Active Additional Information Patient taking differently: 20 mgOral Daily, Reason: Other, Reported on 09/01/2022 cyanocobalamin (VITAMIN B12) 1000 MCG/ML injectionIndicatio ns:Normochromic anemia INJECT 1 ML MONTHLY INJECTION 1 mL 11 12/24/2019 Active hydroCHLOROthiazid e (HYDRODIURIL) tablet 25 mg TAKE 1/2 TABLET BY MOUTH EVERY DAY IN THE MORNING 45 tablet 2 04/08/2020 Active Additional Information Patient taking differently: 25 mg, (No instructions reported), Reason: Other, Reported on 12/29/2022 ergocalciferol (VITAMIN D2) capsule 45502 units TAKE 1 CAPSULE BY MOUTH ONE TIME PER WEEK 12 capsule 1 04/11/2020 Active Loperamide HCl (IMODIUM PO) Take by mouth daily as needed. 0 Active mesalamine (LIALDA) 1.[address] tablet Take 4 tablets (4.8 g total) by mouth daily. 120 tablet 5 11/07/2021 Active acetaminophen (TYLENOL) 325 MG tablet Take 2 tablets (650 mg total) by mouth every 6 (six) hours as needed. 0 Active amitriptyline (ELAVIL) 10 MG tabletIndications: Change in bowel function TAKE 1 TABLET BY MOUTH EVERYDAY AT BEDTIME 30 tablet 1 10/16/2022 Active Additional Information Patient not taking.Reason: Other, Reported on 12/29/2022 cholestyramine (QUESTRAN) 4 GM/DOSE powder TAKE 4 G BY MOUTH 2 (TWO) TIMES A DAY WITH MEALS. 240 g 0 11/16/2022 Active Additional Information Patient not taking.Reason: Other, Reported on 12/29/2022 cholestyramine light 4 g packetIndications: Diarrhea, unspecified type TAKE 1 PACKET BY MOUTH 2 TIMES A DAY. 180 packet 3 04/01/2023 Active Active Problems Problem Noted Date Diagnosed Date Diarrhea of presumed infectious origin 0 Overview: Added automatically from request for surgery [id number] Esophageal dysphagia 05/28/2020 Overview: Added automatically from request for surgery [id number] Class 3 drug-induced obesity with serious comorbidity and body mass index (BMI) of 45.0 to 49.9 in adult 03/21/2020 Overview: Last Assessment & Plan: Unfortunately Florentino was [...] I informed her of this. Prediabetes 03/21/2020 Overview: Last Assessment & Plan: Continue to monitor diet and I guess exercise as tolerated. If she wants Metformin in the future we can prescribe this. Stage 3 chronic kidney disease 01/11/2020 PMR (polymyalgia rheumatica) 10/06/2019 Pedal edema 12/20/2018 Hyperlipidemia Carotid artery disease Overview: US carotids 10/2017: LEON 50-79%, LICA <50% 09/2018 US: No appreciable atherosclerotic plaque in the carotid arteries. GERD without esophagitis IBS (irritable bowel syndrome) Overview: diarrhea calprotectin neg Anemia, normocytic normochromic Overview: Check CBC Q3 months Hgb <10 needs consider BM Immunizations Name Administration Dates Next Due Influenza Quad (Afluria/Fluz one) 0.5mL >=6mon Vial (SD-IIV4) 04/26/2014 Influenza Quad (Flucelvax) 0.5mL >6mon (ccIIV4) 03/06/2013 Influenza Trivalent (Fluzone /Afluria) 5.0mL Multi-dose Vial 04/16/2012 Pneumococcal Conjugate PCV13 08/15/2018 Pneumococcal Polysaccharide PPSV23 11/08/2019 Shingrix Vaccine (Zoster Recombinant) 08/02/2019 Tdap 11/15/2014 Family History Medical History Relation Name Comments Heart attack Father Arthritis Mother Diabetes Mother Hypertension Mother Relation Name Status Comments Father Mother Alive Social History Tobacco Use Types Packs/Day Years Used Date Smoking Tobacco: Never Smokeless Tobacco: Never Tobacco Cessation:Counseling Given: Not Answered Alcohol Use Standard Drinks/Week Comments No 0 (1 standard drink = 0.6 oz pur e alcohol) Sex and Gender Information Value Date Recorded Sex Assigned at Female 11/04/2018 3:19 PM EDT Gender Identity Female 11/04/2018 3:19 PM EDT Sexual Orientation Not on file Job Start Date Occupation Industry Not on file Not on file Not on file Last Filed Vital Signs Vital Sign Reading Time Taken Comments Blood Pressure 136/80 12/29/2022 3:15 PM EDT Pulse 66 12/29/2022 3:15 PM EDT Temperature 36.8 C (98.3 F) 07/01/2020 9:36 AM EST Respiratory Rate 16 07/01/2020 11:05 AM EST Oxygen Saturation 98% 12/29/2022 3:15 PM EDT Inhaled Oxygen Concentration - - Weight 97.5 kg (215 lb) 12/29/2022 3:15 PM EDT Height 162.6 cm (5' 4 ) 12/29/2022 3:15 PM EDT Body Mass Index 36.9 12/29/2022 3:15 PM EDT Plan of Treatment Health Maintenance Due Date Last Done Comments Shingrix-Zoster Vaccine (2 of 2) 09/27/2019 08/02/2019, 08/02/2019 Depression Screening 08/02/2020 08/02/2019, 08/02/2019, 08/02/2019, Additional history exists Fall Risk Assessment 08/02/2020 08/02/2019, 08/02/2019, 08/02/2019, Additional history exists Preventative Health Evaluation 08/02/2020 08/02/2019, 08/02/2019 Breast Cancer Screening (Mammogram) 11/02/2020 11/02/2018 Osteoporosis Screening (DEXA Scan) 02/10/2021 02/10/2019, 03/08/2012 BMI Counseling 02/21/2021 02/22/2020, 08/2019, 01/11/2020, Additional history exists COVID-19 Vaccine ( season) 2024 08/22/2020, 08/08/2020 Influenza Vaccine (#1) 2025 , 04/08/2020 (Declined), 03/07/2018, Additional history exists RSV Adult > 60+ Yrs or (1 - 1-dose 75+ series) 12/03/2027 DTap / Tdap / Td (4 - Td or Tdap) 09/01/2028 09/01/2018 (Declined), 11/15/2014, 06/07/2011, Additional history exists Colon Cancer Screening (Colonoscopy) 07/01/2030 07/01/2020, 08/10/2018, 07/08/2015 Hepatitis C Screening Completed 09/19/2018 Pneumococcal Vaccine Completed 11/08/2019, 08/15/2018, 05/07/2016 Hepatitis B Vaccines Aged Out No long er eligible based on patient's age to complete this topic RSV Ped < 20 months Aged Out No longe r eligible based on patient's age to complete this topic Care Teams Scheduling Assistant Relationship Specialty Start Date End Date Paul Gottlieb APRN [address] [place] [phone] PCP - General Nurse Practitioner 12/29/22
--- OUTSIDE RECORDS SUMMARY | 2024-12-06 15:08 | XMS_ITS | Clinical Summary ---
Author Organization [facility] Address [address] [place] [address] Care Team Providers Care Cut Off Sawyer Log Name Role Phone Unavailable Primary Care Provider Unavailabl e Social History Tobacco Use Types Packs/Day Years Used Date Smoking Tobacco: Never Assessed Comments Unknown Sex and Gender Information Value Date Recorded Sex Assigned at Not on file Legal Sex Female 4:35 PM EDT Gender Identity Not on file Sexual Orientation Not on file Plan of Treatment Health Maintenance Due Date Last Done Comments Hepatitis C Virus Screening 1950 DTaP/Tdap/Td Vaccines (1 - Tdap) 12/03/1971 Pneumococcal Vaccines 50+ (1 of 1 - PCV) 2002 Zoster (Shingles) Vaccine (1 of 2) 2002 COVID-19 Vaccine ( - 2023-2 5 season) 2024 RSV Vaccine 60 years and old er and Patients (1 - 1-dose 75+ series) 12/03/2027 Hepatitis B Vaccines Aged Out No long er eligible based on patient's age to complete this topic
== END 2024-12-06 15:07 | disposition home or self-care (01) ==
LOC: HO.HCS 14:41
PROVIDERS: PCP Registered Nurse; Visit Provider Internal Medicine
DX: I25.10 Atherosclerotic heart disease of native coronary artery without angina pectoris (principal); I10 Essential (primary) hypertension; G47.33 Obstructive sleep apnea (adult) (pediatric); E66.01 Morbid (severe) obesity due to excess calories
CPT/HCPCS: 93010; 99214; G2211

== ENCOUNTER → 2024-12-06 14:40 | Outpatient (BNVA) | payer MEDICARE, SELFPAY | PROVIDERS: PCP Registered Nurse; Visit Provider Internal Medicine | DX: I25.10 Atherosclerotic heart disease of native coronary artery without angina pectoris (principal); I10 Essential (primary) hypertension; G47.33 Obstructive sleep apnea (adult) (pediatric); E66.01 Morbid (severe) obesity due to excess calories | CPT/HCPCS: 93005; 99212 ==

== ENCOUNTER 2025-03-21 12:37 | Outpatient (AMB) | payer MEDICARE, SELFPAY ==
--- OUTSIDE RECORDS SUMMARY | 2022-12-04 10:21 | XMS_ITS | Encounter Summary ---
Author Organization [facility] Address [address] [facility] [address] [place] [phone] Phone Care Team Providers Care Machine Puller Over Name Role Phone BullPaul DANNY Primary Care Provider [phone] Encounter Details Date Type Department Care Team (Late st Contact Info) Description 12/04/2022 10:21 AM EDT Hospital Encounter [facility] [address] [place] [id number] Samaria Meadows FNP [address] [place] [address] [email or web address] Social History Tobacco Use Types Packs/Day Years Used Date Smoking Tobacco: Never Smokeless Tobacco: Never Alcohol Use Standard Drinks/Week Comments Not Currently 0 (1 standard drink = 0.6 oz pur e alcohol) Education Answer Date Recorded Are you interested in more education? Not on brenda e 10/11/2022 Are you concerned about learning? Not on file 10/11/2022 No 10/11/2022 No 10/11/2022 Food Answer Date Recorded Within the past 6 months we worried whether our food would run out before we got money to buy more. Never True 03/06/2025 Within the past 6 months the food we bought just didn't last and we didn't have enough money to get more. Never True Residential Stability Answer Date Recor ded What is your housing situation today? I have marlen sing 03/06/2025 How many times have you move d in the past 12 months? Zero (I did not move) 03/06/2025 Paying for Meds Answer Date Recorded Do you have trouble paying for medicines? No 03/06/2025 Paying Utility Bills Answer Date Record ed Do you have trouble paying your heating or elect ricity bill? No 03/06/2025 Transportation Answer Date Recorded Has the lack of transportati on kept you from medical appointments or from getting medications? No 03/06/2025 Digital Access Answer Date Recorded No 03/06/2025 Yes 03/06/2025 Do you have reliable internet access at home? Ye s 03/06/2025 Do you have a device (e.g., phone, tablet, computer) with a working camera? Yes 03/06/2025 Intimate Partner Violence Answer Date R ecorded Are you denied basic needs s uch as food, clothing, or medical care? No 03/06/2025 In the past 12 months have y ou been in a relationship with a person who hurts, threatens, or tries to control you? No 03/06/2025 Are you denied basic needs s uch as food, clothing, or medical care? No 03/06/2025 In the past 12 months have y ou been in a relationship with a person who hurts, threatens, or tries to control you? No 03/06/2025 Comments No Sex and Gender Information Value Date Recorded Sex Assigned at Female 03/12/2022 11:48 AM EDT Legal Sex Female 5:26 PM EST Gender Identity Female 03/12/2022 11:48 AM EDT Sexual Orientation Not on file documented as of this encounter Functional Status * Calculated C-SSRS Risk Score (Lifetime/Recent) Answer Date of Assessment Author No Risk Indicated 03/06/2025 4:15 PM EDT Vaishnavi José RN * [place] Suicide Severity Rating Scale (Screener/Recent Self-Report) Question Answer Date of Assessment Author 1. Wish to be (Past 1 Month) No 03/06/2025 4:15 PM EDT Vaishnavi José RN 2. Non-Specific Active Suicidal Thoughts (Past 1 Month) No 03/06/2025 4:15 PM EDT Vaishnavi José RN 6. Suicidal Behavior (Lifetime) No 03/06/2025 4:15 PM EDT Vaishnavi José RN documented as of this encounter Plan of Treatment Upcoming Encounters Date Type Department Care Team (Late st Contact Info) Description 03/14/2025 Procedure Pass [facility] Imaging - CT [address] [id number] 03/28/2025 11:00 AM EDT Office Visit [facility] [address] [place] [address] Paul Gottlieb, DIRECTOR ADVANCED [address] [place] [address] 05/01/2025 9:30 AM EST Office Visit [facility] Pulmonary, Allergy and Critical Care Medicine [address] [place] [phone] Jared Lee MD [address] [place] [phone] 06/22/2025 11:00 AM EST Appointment [facility] [place] CT [address] [address] Jodie cMmahan MD [address] [place] [phone] [email or web address] 06/22/2025 11:40 AM EST Office [place] [facility] [place] [facility] [address] [facility] [address] [place] [address] Peter Melgoza MD [facility], [address] [place] [address] [email or web address] documented as of this encounter Procedures Procedure Name Priority Date/Time Associated Diagnosis Comments XR SHOULDER 2 VIEWS (RIGHT) Urgent/patient waiting 12/04/2022 10:25 AM EDT Right shoulder strain, initial encounter documented in this encounter Results * XR SHOULDER 2 VIEWS (RIGHT) (12/04/2022 10:25 AM EDT) Anatomical Region Laterality Modality Shoulder Right Computed Radiogr aphy 12/04/2022 10:3 7 AM EDT Impressions 12/04/2022 10:38 AM EDT No displaced fracture or dislocation. Narrative 12/04/2022 10:38 AM EDT XR SHOULDER 2 OR MORE VIEWS (RIGHT) COMPARISON: XR SHOULDER 2 OR MORE VIEWS (RIGHT) FINDINGS: No displaced fracture. Normal glenohumeral alignment and joint space with minimal marginal osteophytes along the articular surfaces. Moderate AC joint arthropathy. Procedure Note Eri Osborn MD - 12/04/2022 XR SHOULDER 2 OR MORE VIEWS (RIGHT) COMPARISON: XR SHOULDER 2 OR MORE VIEWS (RIGHT) FINDINGS: No displaced fracture. Normal glenohumeral alignment and joint space withminimal marginal osteophytes along the articular surfaces. Moderate ACjoint arthropathy. IMPRESSION: No displaced fracture or dislocation. Samaria Meadows SOCIAL WORK SUPERVISOR IMG XR UPPER EXTREMITY Gabby l Result documented in this encounter Visit Diagnoses Not on filedocumented in this encounter Additional Health Concerns Infection Onset Date Last Indicated Resolved Time CoV-Risk 03/04/2023 03/04/2023 03/15/2023 1:22 AM EDT CDiff-Risk 12/14/2023 12/15/2023 12/15/2023 11:2 6 AM EDT CoV-Risk Comment:Per Ambulatory Triage Form 02/29/2024 02/29/202403/11 1:22 AM EDT CDiff-Risk 03/15/2024 03/16/2024 03/16/2024 2:58 PM EDT CDiff-Risk 07/14/2024 07/15/2024 07/15/2024 12:2 8 PM EST Assessment Noted Time PHQ-2 Depression Total Score: 2 09/12/19 22 1:35 PM EDT documented as of this encounter Care Teams Machine Puller Over Relationship Specialty Start Date End Date Paul Gottlieb CNP [address] [place] [address] [email or web address] PCP - General Family Medicine 12/04/22 documented as of this encounter Additional Source Comments The information contained in this document represents components of the legal health record. It is not the complete legal health record.[facility]
--- OUTSIDE RECORDS SUMMARY | 2023-12-13 06:00 | XMS_ITS ---
Author Organization [facility] Address [address] [place] [id number] Care Team Providers Care Hand Shoes Sewer Name Role Phone Paul Gottlieb Primary Care Provider Lucy Montes De Oca Unavailable [phone] Julisu Funez Unavailable [phone] Encounters Encounter Location Date Provider Diagnosis [address] [address] 12/13/2023 Julius Funez Plan Of Treatment Next Appt Details Provider Name:Lucy Pablo cuevas, 04/19/2025 02:45:00 PM, [address] [place] [address], [phone], Provider Name:Lucy Shah mason, 07/02/2025 11:15:00 AM, [address] [place] [address], [phone], Progress Notes * EMILIA Giuliana CDOB: [birth year] (74 yo F)Acc No.[id number]:12/13/2023 Progress Note Patient: Giuliana MONTEZ Shea Provider: Gopal Ramírez DPM :1950 A ge:73 Y S ex:Female Date:12/13/2023 Address:[address] [place], [place] [id number] Pcp:Paul Gottlieb Subjective: * Chief Complaints: * * Medical History: Objective: * Vitals: Assessment: Plan: * Treatment: * Images: * The named appointment provid er may or may not be the originator of this progress note, and it is not deemed complete until electronically signed by the appointment provider. Sign off status: Pending * Provider: Gopal Ramírez DPM Date: 0 12/13/2023 Generated for Benson bui/Jay/Ekaterina on: 1 03:55 PM EDT
--- OUTSIDE RECORDS SUMMARY | 2024-03-07 09:19 | XMS_ITS | Encounter Summary ---
Author Organization [facility] Address [address] [facility] [address] [place] [phone] Phone Care Team Providers Care Human Resources Advisor Name Role Phone BullPaul DANNY Primary Care Provider [phone] Encounter Details Date Type Department Care Team (Late st Contact Info) Description 03/07/2024 9:19 AM EDT Hospital Encounter [facility] [address] [place] [phone] Samaria Meadows FNP [address] [place] [address] [email or web address] Social History Tobacco Use Types Packs/Day Years [...] 4:15 PM EDT Vaishnavi José RN * [place] Suicide Severity Rating Scale (Screener/Recent Self-Report) Question [...] 03/14/2025 Procedure Pass [facility] Imaging - CT [address] [address] 03/28/2025 11:00 AM EDT Office Visit [facility] [address] [place] [address] Paul Gottlieb, PRODUCT MARKETING MANAGER [address] [place] [address] 05/01/2025 9:30 AM EST Office Visit [facility] Pulmonary, Allergy and Critical Care Medicine [address] [place] [phone] Jared Lee MD [address] [place] [address] 06/22/2025 11:00 AM EST Appointment [facility] Imaging - CT [address] [address] Jodie Mcmahan MD [address] [place] [phone] [email or web address] 06/22/2025 11:40 AM EST Office Visit [facility] Otolaryngology [facility] [address] [facility] [address] [place] [address] Peter Melgoza MD [facility], [address] [place] [address] [email or web address] documented as of this encounter Procedures Procedure Name Priority Date/Time Associated Diagnosis Comments XR CHEST PA AND LATERAL 2 VIEWS Urgent/patient waiting 03/07/2024 9:23 AM EDT COVID-19 documented in this encounter Results * XR CHEST PA AND LATERAL 2 VIEWS (03/07/2024 9:23 AM EDT) Anatomical Region Laterality Modality Chest Computed Radiogr aphy 03/07/2024 9:30 AM EDT Impressions 03/07/2024 9:32 AM EDT No focal consolidation or overt pulmonary edema. Narrative 03/07/2024 9:32 AM EDT XR CHEST PA AND LATERAL 2 VIEWS Referring clinician's provided indication for this examination in [facility]: Cough; + COVID, persistent cough COMPARISON: XR CHEST PA AND LATERAL 2 VIEWS FINDINGS: Devices/Tubes/Lines: None. Lungs: No focal consolidation or pulmonary edema. Pleura: No pleural effusion or pneumothorax. Heart/Mediastinum: Unchanged in appearance. Bones/Soft Tissues: No acute osseous abnormality. Cholecystectomy clips. Procedure Note Dom Moore MD - 03/07/2024 XR CHEST PA AND LATERAL 2 VIEWS Referring clinician's provided indication for this examination in [facility]:Cough; + COVID, persistent cough COMPARISON: XR CHEST PA AND LATERAL 2 VIEWS FINDINGS: Devices/Tubes/Lines: None. Lungs: No focal consolidation or pulmonary edema. Pleura: No pleural effusion or pneumothorax. Heart/Mediastinum: Unchanged in appearance. Bones/Soft Tissues: No acute osseous abnormality. Cholecystectomy clips. IMPRESSION: No focal consolidation or overt pulmonary edema. Samaria Meadows SCADA ENGINEER IMG XR CHEST Final Resul t documented in this encounter Visit Diagnoses Not on filedocumented in this encounter Additional Health Concerns Infection Onset Date Last Indicated Resolved Time CoV-Risk Comment:Per Ambulatory Triage Form 02/29/2024 02/29/202403/11 1:22 AM EDT CDiff-Risk 03/15/2024 03/16/2024 03/16/2024 2:58 PM EDT CDiff-Risk 07/14/2024 07/15/2024 07/15/2024 12:2 8 PM EST Assessment Noted Time PHQ-2 Depression Total Score: 2 10/25/19 24 1:52 PM EDT documented as of this encounter Care Teams Human Resources Advisor Relationship Specialty Start Date End Date Paul Gottlieb CNP [address] [place] [address] [email or web address] PCP - General Family Medicine 12/04/22 documented as of this encounter Additional Source Comments The information contained in this document represents components of the legal health record. It is not the complete legal health record.[facility]
--- OUTSIDE RECORDS SUMMARY | 2024-10-14 17:30 | XMS_ITS ---
Author Organization [facility] Address [address] [place] [address] Care Team Providers Care Honing Machine Operator Name Role Phone GABRIELA WOOD MD Primary Care Provider Unavail able Molly Darling Unavailable [phone] Migration, Provider Unavailable Unavailable Allergies Allergen (clinical drug ingredient) Drug/Non Drug Allergy documented on EMR Reaction Allergy Type Onset Date Status DEMEROL HCL (uncoded) Unknown Allergy [facility] Encounter Medications Medication SIG (Take, Route, Frequency, Duration) Notes Start Date End Date Status Vitamin D3 50 MCG (1999) 1 tab(s) orally once a day; Duration: 30 day(s) Active PROPANOLOL 160MG DIRECTED *Please review for potential replacement for e-prescription and drug interaction check* Active Thera - 1 tab(s) orally once a day; Duration: 30 day(s) Active VOLTAREN XR *Please review f or potential replacement for e-prescription and drug interaction check* Active Crestor 10 MG 1 tab(s) orally once a day (at bedtime); Duration: 30 day(s) Active Zoloft 100 MG 1 tab(s) orally once a day; Duration: 30 day(s) Active Librax 5-2.5 MG orally as needed; Duration: 10 day(s) Active NexIUM 40 MG 1 TAB ORAL QD; Duration: 30 DAYS *Please review and pick correct strength-formulatio n from Medispan options. If intended option is not shown, discontinue and re-order from Quick Search* Active Provigil 200 MG 1 tab(s) orally once a day (in the morning); Duration: 30 day(s) Active Ferrex 150 Plus 150-50-50 MG 1 cap(s) orally once a day; Duration: 30 day(s) Active Motrin IB 200 MG 2 tab(s) orally every 4 hours Active Levsin 0.125 MG 1 tab(s) orally QID; Duration: 14 day(s) 06/10/2010 Active Questran Light 4 GM/DOSE 4 g orally BID; Duration: 30 day(s) 06/10/2010 Active Euflexxa 10 MG/ML 20 MG BY INTRA-ARTICULAR INJECTION ONCE A WEEK; Duration: 5 WEEK(S) *Please review and pick correct strength-formulatio n from Medispan options. If intended option is not shown, discontinue and re-order from Quick Search* Active Wellbutrin 75 MG 1 TAB(S) ORALLY 3 TIMES A DAY; Duration: 30 DAY(S) *Please review and pick correct strength-formulatio n from Medispan options. If intended option is not shown, discontinue and re-order from Quick Search* Active Multivitamin *Please review a nd pick correct strength-formulatio n from Medispan options. If intended option is not shown, discontinue and re-order from Quick Search* Active Imodium *Please review a nd pick correct strength-formulatio n from Medispan options. If intended option is not shown, discontinue and re-order from Quick Search* Active traZODone HCl *Please review a nd pick correct strength-formulatio n from Medispan options. If intended option is not shown, discontinue and re-order from Quick Search* Active Crestor *Please review a nd pick correct strength-formulatio n from Medispan options. If intended option is not shown, discontinue and re-order from Quick Search* Active Drisdol *Please review a nd pick correct strength-formulatio n from Medispan options. If intended option is not shown, discontinue and re-order from Quick Search* Active NexIUM *Please review a nd pick correct strength-formulatio n from Medispan options. If intended option is not shown, discontinue and re-order from Quick Search* Active Provigil *Please review a nd pick correct strength-formulatio n from Medispan options. If intended option is not shown, discontinue and re-order from Quick Search* Active Motrin *Please review a nd pick correct strength-formulatio n from Medispan options. If intended option is not shown, discontinue and re-order from Quick Search* Active Questran *Please review a nd pick correct strength-formulatio n from Medispan options. If intended option is not shown, discontinue and re-order from Quick Search* Active Vitamin B-12 *Please review a nd pick correct strength-formulatio n from Medispan options. If intended option is not shown, discontinue and re-order from Quick Search* Active Effexor *Please review a nd pick correct strength-formulatio n from Medispan options. If intended option is not shown, discontinue and re-order from Quick Search* Active Vitamin B12 *Please review a nd pick correct strength-formulatio n from Medispan options. If intended option is not shown, discontinue and re-order from Quick Search* Active Encounters Encounter Location Date Provider Diagnosis [facility] [address] [place] [phone] 10/14/2024 Provider Migration Abdominal pain, LUQ 789.02 and Irritable colon 564.1 Assessments Encounter Date Diagnosis (ICD Code) Assessment Notes Treatment Notes Treatment Clinical Notes Section Notes 10/14/2024 Abdominal pain, LUQ (ICD9-CM - 789.02) 10/14/2024 Irritable colon (ICD9-CM - 564.1) Plan Of Treatment Medication Medication Name Sig Start Date Stop Date Notes Levsin 0.125 MG 1 tab(s) orally QID; Duration: 14 day(s) 06/10/2010 Questran Light 4 GM/DOSE 4 g orally BID; Duration: 30 day(s) 06/10/2010 Progress Notes * CHITRA NIETO CDOB: 3 (74 yo F)Acc No.[id number]:10/14/2024 Patient: CHITRA MONTEZ Provider: :1950 A ge:73 Y S ex:Female Date:10/14/2024 Address:[address] [place] [id number] Pcp:GABRIELA WOOD MD Subjective: * Chief Complaints: * 1 . Multum To Medispan Conversion Encounter. * Medical History: * Medications: T aking Zoloft 100 MG Tablet 1 tab(s) orally once a day , Taking Librax 5-2.5 MG Capsule orally as needed , Taking NexIUM , Notes to Pharmacist: *Please review and pick correct strength-formulation from Medispan options. If intended option is not shown, discontinue and re-order from Quick Search*, Taking Provigil , Notes to Pharmacist: *Please review and pick correct strength-formulation from Medispan options. If intended option is not shown, discontinue and re-order from Quick Search*, Taking Motrin , Notes to Pharmacist: *Please review and pick correct strength-formulation from Medispan options. If intended option is not shown, discontinue and re-order from Quick Search*, Taking Questran , Notes to Pharmacist: *Please review and pick correct strength-formulation from Medispan options. If intended option is not shown, discontinue and re-order from Quick Search*, Taking Vitamin B-12 , Notes to Pharmacist: *Please review and pick correct strength-formulation from Medispan options. If intended option is not shown, discontinue and re-order from Quick Search*, Taking Drisdol , Notes to Pharmacist: *Please review and pick correct strength-formulation from Medispan options. If intended option is not shown, discontinue and re-order from Quick Search*, Taking Multivitamin , Notes to Pharmacist: *Please review and pick correct strength-formulation from Medispan options. If intended option is not shown, discontinue and re-order from Quick Search*, Taking Imodium , Notes to Pharmacist: *Please review and pick correct strength-formulation from Medispan options. If intended option is not shown, discontinue and re-order from Quick Search*, Taking traZODone HCl , Notes to Pharmacist: *Please review and pick correct strength-formulation from Medispan options. If intended option is not shown, discontinue and re-order from Quick Search*, Taking Crestor , Notes to Pharmacist: *Please review and pick correct strength-formulation from [employer] options. If intended option is not shown, discontinue and re-order from Quick Search*, Taking Motrin IB 200 MG Tablet 2 tab(s) orally every 4 hours , Taking Wellbutrin 75 MG TABLET 1 TAB(S) ORALLY 3 TIMES A DAY , Notes to Pharmacist: *Please review and pick correct strength-formulation from [employer] options. If intended option is not shown, discontinue and re-order from Quick Search*, Taking Euflexxa 10 MG/ML SOLUTION 20 MG BY INTRA-ARTICULAR INJECTION ONCE A WEEK , Notes to Pharmacist: *Please review and pick correct strength-formulation from [employer] options. If intended option is not shown, discontinue and re-order from Quick Search*, Taking Ferrex 150 Plus 150-50-50 MG Capsule 1 cap(s) orally once a day , Taking NexIUM 40 MG 1 TAB ORAL QD , Notes to Pharmacist: *Please review and pick correct strength-formulation from [employer] options. If intended option is not shown, discontinue and re-order from Quick Search*, Taking Provigil 200 MG Tablet 1 tab(s) orally once a day (in the morning) , Taking Crestor 10 MG Tablet 1 tab(s) orally once a day (at bedtime) , Taking Vitamin D3 50 MCG (2000 UT) Tablet 1 tab(s) orally once a day , Taking PROPANOLOL 160MG DIRECTED , Notes to Pharmacist: *Please review for potential replacement for e-prescription and drug interaction check*, Taking Thera - Tablet 1 tab(s) orally once a day , Taking VOLTAREN XR , Notes to Pharmacist: *Please review for potential replacement for e-prescription and drug interaction check*, Taking Effexor , Notes to Pharmacist: *Please review and pick correct strength-formulation from [employer] options. If intended option is not shown, discontinue and re-order from Quick Search*, Taking Vitamin B12 , Notes to Pharmacist: *Please review and pick correct strength-formulation from [employer] options. If intended option is not shown, discontinue and re-order from Quick Search* * Allergies: D EMEROL HCL. Objective: * Vitals: Assessment: * Assessment: 1. A bdominal pain, LUQ - 789.02 (Primary) 2 . I rritable colon - 564.1? Plan: * Treatment: 2. I rritable colon Start Questran Light Powder, 4 GM/DOSE, 4 g, orally, BID, 30 day(s), 60, Refills 5. * * Electronic signature of Prov ider Migration on 03/21/2025 at 03:55 PM EDT Sign off status: Pending * Provider: Date: 0 10/14/2024 Generated for Benson bui/Jay/Ekaterina on: 1 03:55 PM EDT
--- OUTSIDE RECORDS SUMMARY | 2024-11-07 05:45 | XMS_ITS ---
[facility] Address [address] [place] [address] Care Team Providers Care Maintenance Supervisor Electrical Name Role Phone Paul Gottlieb Primary Care Provider Lucy Montes De Oca Unavailable [phone] Eliu Jacques Unavailable [phone] Allergies Allergen (clinical drug ingredient) Drug/Non Drug Allergy documented on EMR Reaction Allergy Type Onset Date Status meperidine Demerol Unknown Drug Allergy Active Novocain Unknown Drug Allergy Active Flu Virus Vaccine Unknown Drug Allergy Active Medications Medication SIG (Take, Route, Frequency, Duration) Notes Start Date End Date Status hydroCHLOROthiazide 25 MG 1 tablet in th e morning Orally Once a day; Duration: 30 day(s) Active Drisdol 68575 UNIT 1 capsule Orally; Duration: 30 day(s) Active Magnesium 250 MG 1 tablet with a meal Orally Once a day; Duration: 30 day(s) Active Ocuvite Active NexIUM 20 MG 1 capsule Orally Once a day; Duration: 30 day(s) Active Voltaren 1 % as directed Externally Active B-12 Compliance Injection 1000 MCG/ML 1 ml Injection; Duration: 30 day(s) Active Colcrys 0.6 MG 1 tablet Orally once a day; Duration: 10 days Active Calcium 600 MG 1 tablet with meals Orally Twice a day; Duration: 30 day(s) Active Crestor 10 MG 1 tablet Orally Once a day; Duration: 30 day(s) Active Welchol 625 MG 3 tablets with meals Orally Twice a day; Duration: 30 day(s) Active Prednisone 1 tab Oral; Duration: 14 days Active Propranolol HCl 20 MG 5 ml on an empty stomach Orally Once a day Not-Taking Ciclopirox Olamine 0.77 % 1 application Externally Twice a day to skin of feet including between the toes; Duration: 30 days Active Voltaren-XR Not-Taki ng Encounters Encounter Location Date Provider Diagnosis [facility] [address] [address] 11/07/2024 Eliu Jacques Plan Of Treatment Next Appt Details Provider Name:Lucy cuevas, 04/19/2025 02:45:00 PM, [address] [place] [address], [phone], Provider Name:Lucy cuevas, 07/02/2025 11:15:00 AM, [address] [place] [address], [phone], Progress Notes * Giuliana NIETO CDOB: 3 (74 yo F)Acc No.[id number]:11/07/2024 Progress Note Patient: Giuliana MONTEZ Provider: Cydney Jacques DPM :1950 A ge:73 Y S ex:Female Date:11/07/2024 Address:[address] [place] [address], [facility] Pcp:Paul Gottlieb Subjective: * Chief Complaints: * * Medical History: A nemia, Arthritis, Cancer, Fibromyalgia, Gall bladder problems, Hiatal hernia, Lyme disease, Reflux ( GERD), Measles, Mumps, Chicken pox, Polymyalgia rheumatica. * Medications: T aking Voltaren 1 % Gel as directed Externally , Taking Colcrys 0.6 MG Tablet 1 tablet Orally once a day , Taking B-12 Compliance Injection 1000 MCG/ML Kit 1 ml Injection , Taking Crestor 10 MG Tablet 1 tablet Orally Once a day , Taking Calcium 600 MG Tablet 1 tablet with meals Orally Twice a day , Taking Drisdol 92088 UNIT Capsule 1 capsule Orally , Taking hydroCHLOROthiazide 25 MG Tablet 1 tablet in the morning Orally Once a day , Taking Magnesium 250 MG Tablet 1 tablet with a meal Orally Once a day , Taking NexIUM 20 MG Capsule Delayed Release 1 capsule Orally Once a day , Taking Ocuvite , Taking Prednisone 1 tab Oral , Taking Welchol 625 MG Tablet 3 tablets with meals Orally Twice a day , Taking Ciclopirox Olamine 0.77 % Cream 1 application Externally Twice a day to skin of feet including between the toes , Not- Taking/PRN Propranolol HCl 20 MG Tablet 5 ml on an empty stomach Orally Once a day , Not-Taking/PRN Voltaren-XR * Allergies: D emerol, Novocain, Flu Virus Vaccine. Objective: * Vitals: Assessment: Plan: * Treatment: * Images: * The named appointment provid er may or may not be the originator of this progress note, and it is not deemed complete until electronically signed by the appointment provider. Sign off status: Pending * Provider: Cydney Jacques DPM Date: 0 11/07/2024 Generated for Benson bui/Jay/Ekaterina on: 03:54 PM EDT
--- NOTE | 2025-03-21 12:45 | A.OFFVIS_ITS ---
Vital Signs 03/21/25 12:47 Height 5 ft 4 in Weight 229 lb 11.547 oz BMI 39.4 BP 120/64 Blood Pressure Location Lt brachial Position Sitting Pulse 95 Pulse Source Pulse Oximeter Intake Visit Reasons: 1 yr f/up Environmental Projects Advisor Required: No Accompanied by: Self / Same As Patient Allergies hydromorphone (From Dilaudid) Allergy (Severe, Verified 03/21/25 12:51) Nausea and Vomiting meperidine (From DEMEROL) Adverse Reaction (Mild, Verified 09/16/23 08:19) VOMITING Papayas Allergy (Unknown, Uncoded 09/16/23 08:19) unknown Medication List - Last Reconciled 03/21/25 by Gomez Hale MD allopurinol 300 mg PO DAILY aspirin (Adult Aspirin Regimen) 81 mg PO DAILY cyanocobalamin (vitamin B-12) 1,000 mcg IM ergocalciferol (vitamin D2) 1,250 mcg PO QWEEK esomeprazole magnesium 20 mg PO DAILY hydrochlorothiazide 12.5 mg PO DAILY loperamide 2 mg PO Q6H PRN magnesium 250 mg PO DAILY multivitamin 1 tab PO DAILY rosuvastatin 20 mg PO DAILY HPI Comments Details: Giuliana returns for follow-up regarding coronary disease. In the past, she has had some random chest pains and that led to coronary CTA. 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 Medical management with aspirin and statins. Otherwise, history of chronic inflammation from suspected polymyalgia rheumatica. She has been on steroids in the past. Overall, she is more or less the same as before. No new concerns. No angina. Still gets short of breath at times but it has been like this for so many years. She got very anxious because her sister recently had a cardiac stent and hence she started panicking. [facility] Medical History Essential hypertension Low back pain Neck pain of over 3 months duration Fibromyalgia Polyarticular osteoarthritis Leg edema Obstructive sleep apnea Polymyalgia rheumatica Other and unspecified hyperlipidemia Atherosclerotic cardiovascular disease Surgical History Total knee replacement status History of hysterectomy History of cholecystectomy History of tonsillectomy and adenoidectomy Family History Father CVD (cardiovascular disease) Mother No problems noted. Social History Alcohol intake: former Patient Tobacco Use Status: Never used Tobacco Review of Systems Const Denies chills, Denies fatigue, Denies fever(s), Denies frequent falls, Denies weakness, Denies weight gain and Denies weight loss ENT Denies dizziness Card Denies chest pain, Denies leg edema, Denies lightheadedness, Denies palpitations, Denies dyspnea and Denies dyspnea on exertion Resp Denies cough, Denies dyspnea and Denies dyspnea on exertion GI Denies hematochezia Musc Denies abnormal gait, Denies muscle weakness, Denies numbness, Denies radiating pain into limb and Denies tingling Neuro Denies abnormal gait, Denies dizziness, Denies frequent falls, Denies numbness, Denies tingling and Denies weakness Endo Denies fatigue and Denies palpitations Physical Exam Vital Signs: Last Vital Signs Pulse 95 03/21/25 12:47 BP 120/64 03/21/25 12:47 BMI result Body Mass Index 39.4 Const General: comfortable and no acute distress Orientation/consciousness: patient oriented x3 HEENT Other: Unremarkable Head: Yes normal to inspection Neck Neck: Yes normal visual inspection Chest Chest palpation & inspection: normal inspection of the chest Resp Auscultation: clear to auscultation bilaterally Cardio Palpation: normal PMI Heart sounds: S1 normal heart sound present, S2 normal heart sound present, no gallops, no murmurs and no rubs GI Palpation (GI): Soft to palpation Back/Spine/Pelvis Other: unremarkable Skin General skin exam: no rashes or lesions noted Neuro General: patient oriented x3 Extrem General: Yes normal to inspection Psych Mental Status: mental status grossly normal Assessment & Plan Assessment & Plan (1) Atherosclerotic cardiovascular disease: Code(s): I25.10 - Atherosclerotic heart disease of [place] coronary artery without angina pectoris Category: Medical Plan: Cardiac studies reviewed. In the past (2019), coronary CTA could not be completed due to gating issues as well as obesity and she only had a calcium scoring CT. Total calcium score is 355. Majority in the LAD; mild calcification left main and right coronary artery. Circumflex did not have any calcification at all. Coronary CTA-02/2024-calcific plaque at left main causing 25% stenosis. Moderate calcified plaque in the LAD from proximal portion to proximal part of distal LAD with multifocal 25-50% stenosis. Minimal circumflex/RCA stenosis. For the FFR, gradual decline in the LAD, from 0.86-0.73. Otherwise unremarkable. Myocardial perfusion imaging studies from 2019 and 2022 showed normal perfusion. Echocardiogram 2022-LVEF 60-65% with normal peak global longitudinal strain. Mild aortic/mitral calcification but no significant valvular dysfunction. She has stable coronary artery disease. Clinically, she has got no exertional angina. In this context, mainly risk factor modification with weight management, aspirin and statins. Recent LDL 47 mg/dL. Triglycerides 230 mg/dL. We discussed about symptoms of angina and presentation of myocardial infarction. Needs such instance, she will need to seek urgent care. Otherwise, medications as above. She understands this. (2) Essential hypertension: Code(s): I10 - Essential (primary) hypertension Category: Medical Plan: Appears stable. In the past, hydrochlorothiazide dose was cut back because of gout. (3) Obstructive sleep apnea: Code(s): G47.33 - Obstructive sleep apnea (adult) (pediatric) Category: Medical Plan: There is a history of BETTY, but does not use any CPAP mask. (4) Morbid obesity: Code(s): E66.01 - Morbid (severe) obesity due to excess calories Category: Medical Plan: Overall about the same as before. No recent changes. Plan Patient Instructions - Engage in weight management and increase physical activity as tolerated. - Follow dietary modifications to manage cholesterol levels. - Continue current antihypertensive regimen and monitor blood pressure regularly. - if any symptoms like chest pain, to seek emergency care. Orders: Referrals Tele Grout Sewer Line Repairer Nutrition Referral E66.01 - Morbid (severe) obesity due to excess calories, I25.10 - Atherosclerotic heart disease of [place] coronary artery without angina pectoris Coding Level of Care Code Est Pt Level 4 (67138) Complex EM visit Add On G2211 Diagnoses Atherosclerotic cardiovascular disease I25.10 Essential hypertension I10 Obstructive sleep apnea G47.33 Morbid obesity E66.01
[2025-03-21 12:47] VITALS: BP 120/64; PULSE 95; BMI 39.4
--- OUTSIDE RECORDS SUMMARY | 2025-03-21 15:54 | XMS_ITS | Patient Health Record ---
Author Organization [facility] Address [address] [facility] [place] [address] Care Team Providers Care Rn Hemodialysis Charge Name Role Phone Paul Gottlieb Primary Care Provider Lucy Montes De Oca Unavailable [phone] Eliu Jacques Unavailable [phone] Allergies Allergen (clinical drug ingredient) Drug/Non Drug Allergy documented on EMR Reaction Allergy Type Onset Date Status meperidine Demerol Unknown Drug Allergy Active Novocain Unknown Drug Allergy Active Flu Virus Vaccine Unknown Drug Allergy Active Reason For Referral No Information Medications Medication SIG (Take, Route, Frequency, Duration) Notes Start Date End Date Status Crestor 10 MG 1 tablet Orally Once a day; Duration: 30 day(s) Active Colcrys 0.6 MG 1 tablet Orally once a day; Duration: 10 days Active Ciclopirox Olamine 0.77 % 1 application Externally Twice a day to skin of feet including between the toes; Duration: 30 days Active B-12 Compliance Injection 1000 MCG/ML 1 ml Injection; Duration: 30 day(s) Active Amoxicillin 875 MG Oral; Duration: 5 Days Active Prednisone 1 tab Oral; Duration: 14 days Active Voltaren 1 % as directed Externally Active Welchol 625 MG 3 tablets with meals Orally Twice a day; Duration: 30 day(s) Active NexIUM 20 MG 1 capsule Orally Once a day; Duration: 30 day(s) Active Ocuvite Active hydroCHLOROthiazide 25 MG 1 tablet in th e morning Orally Once a day; Duration: 30 day(s) Active Magnesium 250 MG 1 tablet with a meal Orally Once a day; Duration: 30 day(s) Active Calcium 600 MG 1 tablet with meals Orally Twice a day; Duration: 30 day(s) Active Voltaren-XR Not-Taki ng Drisdol 33288 UNIT 1 capsule Orally; Duration: 30 day(s) Active Propranolol HCl 20 MG 5 ml on an empty stomach Orally Once a day Not-Taking Immunizations Vaccine Route Administration Date Status Comme nts Influenza Unknown 02/06/2024 Administered COVID-19 Lv & Lv/Kaur Unknown 08/08/2020 A dministered Social History Tobacco Use: Social History Observation Description Date Details (start date - stop date) Never Smoker NA - NA Tobacco use other than smoking: Question Answer Notes Are you an other tobacco user? No Tobacco Control (Standard) Question Answer Notes Tobacco use: Nonsmoker Additional Findings: Tobacco non-user Current no nsmoker AUDIT-C (Standard) Question Answer Notes Did you have a drink containing alcohol in the p ast year? No Points 0 Interpretation Negative Problems Problem Type SNOMED Code ICD Code Onset Dates Problem Status W/U Status Risk Notes Problem Bilateral atherosclerosis of arteries of lower limbs (disorder) (16701564590891786 ) Atherosclerosis of artery of both lower extremities (I70.203) Active confirmed Q7(A), Q8(2B), Q9(1B,2 C) Vital Signs Blood pressure diastolic 74 mm Hg 01/23/2025 Height 5ft4in in 01/23/2025 Blood pressure systolic 122 mm Hg 01/23/2025 Weight 230 lbs 01/23/2025 BMI 39.48 kg/m2 01/23/2025 Procedures Procedure Date Ordered Date Performed Result Body Sit e 00748-OXNGUEY NAIL, 1-5 08/18/2024 N/A 93254-RNOG SKIN LESIONS, 2 TO 4 08/18/2024 N/A O8449-NNSJBZAA DYSTROPHIC NAILS ANY # 08/18/2024 N/A 37320-FDQVIHU NAIL, 1-5 01/23/2025 N/A 90957-GTJN SKIN LESIONS, 2 TO 4 01/23/2025 N/A L7565-DYUXEONV DYSTROPHIC NAILS ANY # 01/23/2025 N/A 14385- Debride <25 sq cm 01/29/2025 N/A Encounters Encounter Location Date Provider Diagnosis [facility] [address] [place] [address] 08/18/2024 Eliu Jacques Atherosclerosis of artery of both lower extremities I70.203 ; Tinea unguium B35.1 ; Pain in right toe(s) M79.674 ; Pain in left toe(s) M79.675 and Tinea pedis of both feet B35.[address] [address] 01/23/2025 Eliu Jacques Atherosclerosis of artery of both lower extremities I70.203 ; Tinea unguium B35.1 ; Pain in right toe(s) M79.674 ; Pain in left toe(s) M79.675 ; Tinea pedis of both feet B35.3 and Ingrown nail L60.[address] [address] 01/29/2025 Luyc Parra Pressure injury of left foot, stage [address] [address] 11/07/2024 Eliu Jacques Assessments Encounter Date Diagnosis (ICD Code) Assessment Notes Treatment Notes Treatment Clinical Notes Section Notes 08/18/2024 Atherosclerosis of artery of both lower extremities (ICD-10 - I70.203) Q7(A), Q8(2B), Q9(1B,2C) 01/23/2025 Tinea unguium (ICD-10 - B35.1) 01/23/2025 Atherosclerosis of artery of both lower extremities (ICD-10 - I70.203) Q7(A), Q8(2B), Q9(1B,2C) 01/29/2025 Pressure injury of left foot, stage 1 (ICD-10 - L89.891) Patient Educated with: WOUND CARE INSTRUCTIONS. pdf (WOUND CARE INSTRUCTIONS. pdf) 01/23/2025 Pain in right toe(s) (ICD-10 - M79.674) 08/18/2024 Tinea unguium (ICD-10 - B35.1) 01/23/2025 Pain in left toe(s) (ICD-10 - M79.675) 08/18/2024 Pain in right toe(s) (ICD-10 - M79.674) 01/23/2025 Tinea pedis of both feet (ICD-10 - B35.3) 08/18/2024 Pain in left toe(s) (ICD-10 - M79.675) 08/18/2024 Tinea pedis of both feet (ICD-10 - B35.3) 01/23/2025 Ingrown nail (ICD-10 - L60.0) Plan Of Treatment Pending Test Test Name Order Date *Uric Acid, Serum 01/27/2023 *Sedimentation Rate-Westergren X ray : Foot, left 3V 02/20/2019 X ray : Foot, left 3V 06/13/2020 X ray : Foot, left 3V 01/27/2023 X ray : Foot, right 3V 06/13/2020 96501-RRMPSOS NAIL, 1-5 08/18/2024 28419-HFOLSAL NAIL, 1-5 01/23/2025 10793- Debride <25 sq cm 01/29/2025 63602-EUEY SKIN LESIONS, 2 TO 4 01/24/20 82165-DJWM SKIN LESIONS, 2 TO 4 08/19/19 Y1333-VPJISOFN DYSTROPHIC NAILS ANY # T4817-YJFJKUVL DYSTROPHIC NAILS ANY # Next Appt Details Provider Name:Lucy Shah masno, 04/19/2025 02:45:00 PM, [address] [place] [address], [phone], Provider Name:Lucy Pablo cuevas, 07/02/2025 11:15:00 AM, [address] [place] [address], [phone], Insurance Providers Payer Name Payer Address Payer Phone Subscriber Number Group Number Insured Name Patient Relationship to Insured Coverage Start Date Coverage End Date [employer] [address] [place] [address] [phone] [id number] Giuliana Spring Self - patient is the insured Medical (General) History Medical History History ICD Code Anemia Arthritis Cancer Fibromyalgia Gall bladder problems Hiatal hernia Lyme disease Reflux ( GERD) Measles Mumps Chicken pox Polymyalgia rheumatica Surgical History Surgery Date(Month/Year) sinus 2009 Hysterectomy 1994 Gall bladder 1992 facial jaw fracture 1981 Left knee torn miniscus 2006 knee surgery 07/01 cataract surgery 10/29
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
--- OUTSIDE RECORDS SUMMARY | 2025-03-21 15:54 | XMS_ITS | Clinical Summary ---
Author Organization [facility] Address [address] [place] [address] Care Team Providers Care Clinical Pharmacy Coordinator Name Role Phone Paul Gottlieb APRN Primary Care Provider [phone] Allergies Active Allergy Reactions Criticality Noted Date [...] Reported on 12/29/2022 ergocalciferol (VITAMIN D2) capsule 01045 units TAKE 1 CAPSULE BY MOUTH ONE [...] Overview: Added automatically from request for surgery [id number] Esophageal dysphagia 05/28/2020 Overview: Added automatically from request for surgery [id number] Class 3 drug-induced obesity with serious comorbidity [...] Additional history exists COVID-19 Vaccine ( season) 2025 08/22/2020, 08/08/2020 Influenza Vaccine (#1) 2025 2, 04/08/2020 (Declined), 03/07/2018, Additional history exists RSV [...] age to complete this topic Care Teams Clinical Pharmacy Coordinator Relationship Specialty Start Date End Date Paul Gottlieb APRN [address] [place] [id number] PCP - General Nurse Practitioner 12/29/22
--- OUTSIDE RECORDS SUMMARY | 2025-03-21 15:55 | XMS_ITS | Encounter Summary ---
Author Organization [facility] Address [facility] [address] [place] [address] Phone Care Team Providers Care Actuarial Analyst Name Role Phone BullPaul DANNY Primary Care Provider [phone] Encounter Details Date Type Department Care Team (Latest Contact Info) Description 05/04/2023 Transcribe Orders Virtual Department [address] [place] [address] Luz Amin MD [address] [place] [phone] [email or web address] Diarrhea, unspecified type (Primary Dx) Social History Tobacco Use Types Packs/Day Years Used Date Smoking Tobacco: Never Smokeless Tobacco: Never Alcohol Use Standard Drinks/Week Comments Not Currently 0 (1 standard drink = 0.6 oz pur e alcohol) Education Answer Date Recorded Are you interested in more education? Not on brenda e 10/11/2022 Are you concerned about learning? Not on file 10/11/2022 No 10/11/2022 No 10/11/2022 Digital Access Answer Date Recorded No 10/28/2022 No 10/28/2022 Reliable internet access at home? Not on file 10/28/2022 Device with a working camera? Not on file Comments No Sex and Gender Information Value Date Recorded Sex Assigned at Female 03/12/2022 11:48 AM EDT Legal Sex Female 5:26 PM EST Gender Identity Female 03/12/2022 11:48 AM EDT Sexual Orientation Not on file documented as of this encounter Plan of Treatment Upcoming Encounters Date Type Department Care Team (Late st Contact Info) Description 03/14/2025 Procedure Pass [facility] [place] [address] [address] 03/28/2025 11:00 AM EDT Office Visit [facility] [address] [place] [address] Paul Gottlieb, MARIONETTE PERFORMER [address] [place] [address] 05/01/2025 9:30 AM EST Office Visit [facility], Allergy and Critical Care Medicine [address] [place] [address] Jared Lee MD [address] [place] [address] 06/22/2025 11:00 AM EST Appointment [facility] [place] [address] [address] Jodie Mcmahan MD [address] [place] [address] [email or web address] 06/22/2025 11:40 AM EST Office Visit [facility] Otolaryngology [facility] 0 [facility] [address] [place] [phone] Peter Melgoza MD [facility] [address] [place] [address] [email or web address] documented as of this encounter Visit Diagnoses Diagnosis Diarrhea, unspecified type- Primary documented in this encounter Additional Health Concerns Infection Onset Date Last Indicated Resolved Time CDiff-Risk 12/14/2023 12/15/2023 12/15/2023 11:2 6 AM EDT CoV-Risk Comment:Per Ambulatory Triage Form 02/29/2024 02/29/202403/11 1:22 AM EDT CDiff-Risk 03/15/2024 03/16/2024 03/16/2024 2:58 PM EDT CDiff-Risk 07/14/2024 07/15/2024 07/15/2024 12:2 8 PM EST Assessment Noted Time PHQ-2 Depression Total Score: 2 09/12/19 22 1:35 PM EDT documented as of this encounter Care Teams Actuarial Analyst Relationship Specialty Start Date End Date Paul Gottlieb CNP [address] [place] [address] [place] [address] [email or web address] PCP - General Family Medicine 12/04/22 documented as of this encounter Additional Source Comments The information contained in this document represents components of the legal health record. It is not the complete legal health record.[facility]
--- OUTSIDE RECORDS SUMMARY | 2025-03-21 15:55 | XMS_ITS ---
Author Name [facility] Organization Unknown Care Team Organization Name Specialty Phone Email Start Date End Da te [facility], KALLI REYNOLDS Primary Care 02/21/2021 01/24/2024
--- OUTSIDE RECORDS SUMMARY | 2025-03-21 15:55 | XMS_ITS | Encounter Summary ---
Author Organization [facility] Address [address] [place] [address] Phone Care Team Providers Care Curriculum And Assessment Coordinator Name Role Phone Violeta Melo SUPERVISOR MARBLE Unavailable Fransisco Rodriguez DO Unavailable Shelby Munguia SUPERVISOR MARBLE Unavailable [phone] Kayli Loo LOCK INSTALLER Unavailable Manda Atwood SUPERVISOR MARBLE Unavailable [phone] Chirag Hairston MD Unavailable [phone] Kim De Santiago MD Unavailable Marcus Liang MD Unavailable [phone] Nico Vazquez MD Unavailable Racquel Greenfield DO Primary Care Provider [phone] Em Parekh CNP Primary Care Provider Em Parekh CNP Primary Care Provider Clarence Bales MD Primary Care Provider [phone] Paul Gottlieb LOCK INSTALLER Primary Care Provider [phone] Encounter Details Date Type Department Care Team (Late st Contact Info) Description 10/19/2017 Ancillary Orders Virtual Department [address] [place] [address] Racquel Greenfield DO [address] [place] [address] Breast screening Social History Tobacco Use Types Packs/Day Years [...] st Contact Info) Description 03/14/2025 Procedure Pass [facility] Imaging - [place] [address] [address] 03/28/2025 11:00 AM EDT Office Visit [address] [address] Paul Gottlieb, LOCK INSTALLER [address] [place] [address] [email or web address] 05/01/2025 9:30 AM EST Office Visit [facility] Pulmonary, Allergy and Critical Care Medicine [address] [place] [address] [place] [address] Jared Lee MD [address] [place] [address] 06/22/2025 11:00 AM EST Appointment [facility] Imaging - CT [address] [address] Jodie Mcmahan MD [address] [place] [address] [email or web address] 06/22/2025 11:40 AM EST Office Visit [facility] Otolaryngology [facility] [address] [place] [address] Peter Melgoza MD [facility], [address] [place] [address] [email or web address] documented as of this encounter Results * BI MAMMOGRAM SCREENING WITH TOMOSYNTHESIS WITH CAD (BILATERAL) (10/27/2017 1:19 PM EDT) Anatomical Region Laterality Modality Breast Left, Breast Right, Breast Bilateral Bila teral Mammography 10/27/2017 2:27 PM EDT Impressions 10/27/2017 2:31 PM EDT No mammographic signs of malignancy. Annual screening is recommended. BI-RADS CATEGORY: 1 - Negative. DENSITY: There are scattered fibroglandular densities. POS - [facility] Narrative 10/27/2017 2:31 PM EDT Bilateral mammography is performed in conjunction with computed aided detection. 3-D tomography along with 2-D C view imaging was also performed. Comparison made to previous dated as far back as 10/26/2011 and as recent as 09/22/2016. No suspicious masses, areas of architectural distortion or suspicious microcalcifications. Procedure Note Adrian Trinidad MD - 10/27/2017 Bilateral mammography is performed in conjunction with computed aideddetection. 3-D tomography along with 2-D C view imaging was alsoperformed. Comparison made to previous dated as far back as 10/26/2011 andas recent as 09/22/2016. No suspicious masses, areas of architectural distortion or suspiciousmicrocalcifications. IMPRESSION: No mammographic signs of malignancy. Annual screening is recommended. BI-RADS CATEGORY: 1 - Negative. DENSITY: There are scattered fibroglandular densities. POS - CDHMAMA Racquel Greenfield DO IMG MG EXAMS Final Resu lt documented in this encounter Visit Diagnoses Diagnosis Breast screening Breast screening, unspecified Breast screening Breast screening, unspecified documented in this encounter Additional Health Concerns Infection Onset Date Last Indicated Resolved Time CoV-Risk 09/17/2021 09/17/2021 09/28/2021 1:43 AM EDT CoV-Risk 03/04/2023 03/04/2023 03/15/2023 1:22 AM EDT CDiff-Risk 12/14/2023 12/15/2023 12/15/2023 11:2 6 AM EDT CoV-Risk Comment:Per Ambulatory Triage Form 02/29/2024 02/29/202403/11 1:22 AM EDT CDiff-Risk 03/15/2024 03/16/2024 03/16/2024 2:58 PM EDT CDiff-Risk 07/14/2024 07/15/2024 07/15/2024 12:2 8 PM EST documented as of this encounter Care Teams Curriculum And Assessment Coordinator Relationship Specialty Start Date End Date Racquel Greenfield DO [address] [place] [address] Orthopedics & Sports Medicine, [place] [address] PCP - General 10/19/17 05/28/20 Em Parekh, DANNY [address] [place] [address] PCP - General Internal Medicine 05/29/20 06/25/20 Em Parekh CNP [address] [place] [address] PCP - General Internal Medicine 06/26/20 11/15/22 Clarence Bales MD [address] [place] [address] PCP - General Internal Medicine 11/16/22 12/03/22 Paul Gottlieb, LOCK INSTALLER [address] [facility] [place] [address] PCP - General Family Medicine 12/04/22 Violeta Melo NP [address] [place] [address] Historical LMR Provider 03/24/17 Fransisco Rodriguez DO [address] [place] [address] [address] [place] [address] [email or web address] Historical LMR Provider 03/24/17 08/27/20 Shelby Munguia NP [address] [place] [address] Historical LMR Provider 03/24/17 Kayli Loo CNP [address] [place] [address] [email or web address] Historical LMR Provider 03/24/17 08/27/20 Manda Atwood NP [address] [place] [address] Historical LMR Provider 03/24/17 Chirag Hairston MD [address] [place] [address] Historical LMR Provider 03/24/17 Kim De Santiago MD [address] [place] [address] [address] [place] [address] [email or web address] Historical LMR Provider 03/24/17 1 Marcus Liang MD [address] [place] [address] [address] [place] [phone] [email or web address] Historical LMR Provider 03/24/17 08/27/20 Nico Vazquez MD [address] [place] [address] Orthopedics & Sports Medicine, [place] [address] [email or web address] Historical LMR Provider 03/24/17 documented as of this encounter Additional Source Comments The information contained in this document represents components of the legal health record. It is not the complete legal health record.[facility]
--- OUTSIDE RECORDS SUMMARY | 2025-03-21 15:55 | XMS_ITS | Clinical Summary ---
Author Organization [facility] Address [address] [place] [address] Care Team Providers Care Charge Master Coordinator Name Role Phone Unavailable Primary Care Provider Unavailabl e Social History Tobacco Use Types Packs/Day Years Used Date Smoking Tobacco: Never Assessed Comments Unknown Sex and Gender Information Value Date Recorded Sex Assigned at Not on file Legal Sex Female 4:35 PM EDT Gender Identity Not on file Sexual Orientation Not on file Plan of Treatment Health Maintenance Due Date Last Done Comments Advance Care Planning 1950 Hepatitis C Virus Screening 1950 DTaP/Tdap/Td Vaccines (1 - Tdap) 12/03/1971 Pneumococcal Vaccines 50+ (1 of 1 - PCV) 2002 Zoster (Shingles) Vaccine (1 of 2) 2002 COVID-19 Vaccine (1 - 2023-2 5 season) 2025 RSV Vaccine 50 years and old er and Patients (1 - 1-dose 75+ series) 12/03/2027 Hepatitis B Vaccines Aged Out No long er eligible based on patient's age to complete this topic
--- OUTSIDE RECORDS SUMMARY | 2025-03-21 15:56 | XMS_ITS | Encounter Summary ---
Author Organization [facility] Address [address] [place] [address] Phone Care Team Providers Care Home Agent Name Role Phone Violeta Melo DIGITAL PROJECT COORDINATOR Unavailable [phone] Fransisco Rodriguez DO Unavailable Shelby Munguia DIGITAL PROJECT COORDINATOR Unavailable Kayli Loo HORSERADISH GRINDER Unavailable Manda Atwood DIGITAL PROJECT COORDINATOR Unavailable [phone] Chirag Hairston MD Unavailable [phone] Kim De Santiago MD Unavailable Marcus Liang MD Unavailable [phone] Nico Vazquez MD Unavailable [phone] Racquel Greenfield DO Primary Care Provider [phone] Em Parekh CNP Primary Care Provider Em Parekh CNP Primary Care Provider Clarence Bales MD Primary Care Provider Paul Gottlieb HORSERADISH GRINDER Primary Care Provider [phone] Encounter Details Date Type Department Care Team (Late st Contact Info) Description 10/17/2018 Ancillary Orders Virtual Department [address] [place] [address] Racquel Greenfield DO [address] [place] [address] Breast screening; Osteoporosis, unspecified osteoporosis type, unspecified pathological fracture presence Social History Tobacco Use Types Packs/Day Years Used Date Smoking Tobacco: Never Smokeless Tobacco: Never Alcohol Use Standard Drinks/Week Comments Not Currently 0 (1 standard drink = 0.6 oz pur e alcohol) Comments No Sex and Gender Information Value Date Recorded Sex Assigned at Female 03/12/2022 11:48 AM EDT Legal Sex Female 5:26 PM EST Gender Identity Female 03/12/2022 11:48 AM EDT Sexual Orientation Not on file documented as of this encounter Plan of Treatment Upcoming Encounters Date Type Department Care Team (Late st Contact Info) Description 03/14/2025 Procedure Pass [facility] [address] [address] 03/28/2025 11:00 AM EDT Office Visit [facility] [address] [place] [address] Paul Gottlieb, HORSERADISH GRINDER 29 [place] [address] 05/01/2025 9:30 AM EST Office Visit [facility] Pulmonary, Allergy and Critical Care Medicine 10 [facility] [place] [address] Jared Lee MD [address] [place] [address] 06/22/2025 11:00 AM EST Appointment [facility] [address] [address] Jodie Mcmahan MD [address] [place] [address] [email or web address] 06/22/2025 11:40 AM EST Office Visit [facility] Otol[facility]ology [facility] 0 [facility] [address] [place] [address] Peter Melgoza MD [facility], [address] [place] [address] [email or web address] documented as of this encounter Results * BD DXA AXIAL (SPINE) WITH HIP (02/10/2019 9:23 AM EDT) Anatomical Region Laterality Modality Bone Density Bone Density 02/10/2019 1:51 PM EDT Impressions 02/10/2019 1:52 PM EDT Overall normal bone mineral density. POS -[id number] Narrative 02/10/2019 1:52 PM EDT This is a 68-year-old postmenopausal white female perceived height loss of one inch over her lifetime. She has a history of endometrial carcinoma. No prior studies. Evaluation of the lumbar spine and hips was performed and appears to be technically adequate. Total bone mineral density in the L1-L4 vertebral bodies was calculated at 1.034 gm/cm2 with a T score of -0.1. This falls within the WHO classification of normal. Total bone mineral density in the right proximal femur was calculated at 1.106 gm/cm2 with a T-score of 1.3 falling within the WHO classification of normal. Total bone mineral density in the left proximal femur was calculated at 1.084 gm/cm2 with a T-score of 1.2 falling within the WHO classification of normal. Procedure Note Ninoska Bains MD - 02/10/2019 This is a 68-year-old postmenopausal white female perceived height loss ofone inch over her lifetime. She has a history of endometrial carcinoma. Noprior studies. Evaluation of the lumbar spine and hips was performed and appears to betechnically adequate. Total bone mineral density in the L1-L4 vertebral bodies was calculated at1.034 gm/cm2 with a T score of -0.1. This falls within the WHOclassification of normal. Total bone mineral density in the right proximal femur was calculated at1.106 gm/cm2 with a T-score of 1.3 falling within the WHO classificationof normal. Total bone mineral density in the left proximal femur wascalculated at 1.084 gm/cm2 with a T-score of 1.2 falling within the WHOclassification of normal. IMPRESSION: Overall normal bone mineral density. POS -[id number] Racquel HarrisStephanie Jean Pierre DO IMG BD BONE DENSITY DEXA F inal Result * (ABNORMAL) BI MAMMOGRAM SCREENING WITH TOMOSYNTHESIS WITH CAD (BILATERAL) (11/02/2018 10:37 AM EDT) Anatomical Region Laterality Modality Breast Left, Breast Right, Breast Bilateral Bila teral Mammography 11/02/2018 9:25 PM EDT Impressions 11/02/2018 9:35 PM EDT RIGHT BREAST: Small 0.5 cm focal asymmetry in the central breast, slightly medial at 8.5 cm from the nipple. Patient will be called back for additional mammographic images (spot compression views in CC and MLO views) and targeted ultrasound. LEFT BREAST: Negative, no evidence of malignancy. Normal interval follow-up is recommended in 12 months. Bi-RADS: BI-RADS CATEGORY: 0 - Incomplete. Need additional imaging evaluation. DENSITY: There are scattered fibroglandular densities. RIGHT RECOMMENDATION DUE DATE: 1 Month Additional Imaging LEFT RECOMMENDATION DUE DATE: Annual Mammography Screening POS - [id number] Narrative 11/02/2018 9:35 PM EDT STUDY: Bilateral screening mammography with tomosynthesis and CAD TECHNIQUE: Bilateral full-field digital screening mammography is obtained and read in conjunction with computer-aided detection. Tomosynthesis as well as 2-D C view imaging were obtained. COMPARISON: Comparison made to multiple prior, most recent October 27, 2017, and most remote October 26, 2012. BREAST COMPOSITION: There are scattered areas of fibroglandular density RIGHT BREAST: There is approximately 0.5 cm focal asymmetry in the central breast, slightly medial, at the junction of the mid/posterior depth at 8.5 cm from the nipple, best appreciated on the tomosynthesis MLO image 44/19 and tomosynthesis CC image 31/78. No significant calcifications or other abnormalities are seen. LEFT BREAST: No significant masses, calcifications or other abnormalities are seen. Procedure Note Ruthy Fry MD - 11/02/2018 STUDY: Bilateral screening mammography with tomosynthesis and CAD TECHNIQUE: Bilateral full-field digital screening mammography is obtainedand read in conjunction with computer-aided detection. Tomosynthesis aswell as 2-D C view imaging were obtained. COMPARISON: Comparison made to multiple prior, most recent October 27, 2017,and most remote October 26, 2012. BREAST COMPOSITION: There are scattered areas of fibroglandulardensity RIGHT BREAST: There is approximately 0.5 cm focal asymmetry in thecentral breast, slightly medial, at the junction of the mid/posteriordepth at 8.5 cm from the nipple, best appreciated on the tomosynthesis MLOimage 44/19 and tomosynthesis CC image 31/78. No significantcalcifications or other abnormalities are seen. LEFT BREAST: No significant masses, calcifications or otherabnormalities are seen. IMPRESSION: RIGHT BREAST: Small 0.5 cm focal asymmetry in the central breast, slightlymedial at 8.5 cm from the nipple. Patient will be called back foradditional mammographic images (spot compression views in CC and MLOviews) and targeted ultrasound. LEFT BREAST: Negative, no evidence of malignancy. Normal intervalfollow-up is recommended in 12 months. Bi-RADS: BI-RADS CATEGORY: 0 - Incomplete. Need additional imagingevaluation. DENSITY: There are scattered fibroglandular densities. RIGHT RECOMMENDATION DUE DATE: 1 Month Additional Imaging LEFT RECOMMENDATION DUE DATE: Annual Mammography Screening POS - [id number] Racquel Greenfield DO IMG MG EXAMS Final Resu lt documented in this encounter Visit Diagnoses Diagnosis Breast screening Breast screening, unspecified Osteoporosis, unspecified osteoporosis type, unspecified pathological fracture presence Breast screening Breast screening, unspecified Osteoporosis, unspecified osteoporosis type, unspecified pathological fracture presence documented in this encounter Additional Health Concerns [...] documented as of this encounter Care Teams Home Agent Relationship Specialty Start Date End Date Racquel Greenfield DO [address] [place] [address] Orthopedics & Sports Medicine, [facility] [place] [address] PCP - General 10/19/17 05/28/20 Em Parekh CNP [address] [place] [address] PCP - General Internal Medicine 05/29/20 06/25/20 Em Parekh CNP [address] [place] [address] PCP - General Internal Medicine 06/26/20 11/15/22 Clarence Bales MD [address] [place] [address] PCP - General Internal Medicine 11/16/22 12/03/22 Paul Gottlieb, HORSERADISH GRINDER [address] [facility] [place] [address] [email or web address] PCP - General Family Medicine 12/04/22 Violeta Melo NP 1 [place] [address] Historical LMR Provider 03/24/17 Fransisco Rodriguez DO [address] [place] [address] 7 [place] [address] [email or web address] Historical LMR Provider 03/24/17 08/27/20 Shelby Munguia NP [address] [place] [address] Historical LMR Provider 03/24/17 Kayli Loo, DANNY [address] [place] [address] [email or web address] Historical LMR Provider 03/24/17 08/27/20 Manda Atwood NP [address] [place] [address] Historical LMR Provider 03/24/17 Chirag Hairston MD 22 [place] [address] Historical LMR Provider 03/24/17 Kim De Santiago MD [address] [place] [address] 7 [place] [address] [email or web address] Historical LMR Provider 03/24/17 1 Marcus Liang MD [address] [place] [address] [address] [place] [phone] [email or web address] Historical LMR Provider 03/24/17 08/27/20 Nico Vazquez MD [address] [place] [address] Orthopedics & Sports Medicine, [facility] [place] [address] [email or web address] Historical LMR Provider 03/24/17 documented as of this encounter Additional Source Comments The information contained in this document represents components of the legal health record. It is not the complete legal health record.[facility]
--- OUTSIDE RECORDS SUMMARY | 2025-03-21 15:56 | XMS_ITS | Encounter Summary ---
Author Organization [facility] Address [address] [place] [address] Phone Care Team Providers Care Classroom Coordinator Name Role Phone Violeta Melo ACTING PROFESSOR Unavailable Fransisco Rodriguez DO Unavailable Shelby Munguia ACTING PROFESSOR Unavailable Kayli Loo ACADEMIC RECORDS SPECIALIST Unavailable Manda Atwood ACTING PROFESSOR Unavailable [phone] Chirag Hairston MD Unavailable [phone] Kim De Santiago MD Unavailable Marcus Liang MD Unavailable [phone] Nico Vazquez MD Unavailable [phone] Racquel Greenfield DO Primary Care Provider [phone] Em Parekh CNP Primary Care Provider Em Parekh CNP Primary Care Provider Clarence Bales MD Primary Care Provider Paul Gottlieb ACADEMIC RECORDS SPECIALIST Primary Care Provider [phone] Encounter Details Date Type Department Care Team (Late st Contact Info) Description 04/08/2020 Ancillary Orders Virtual Department 30 [place] [address] Racquel Greenfield DO [address] [place] [address] Breast screening Social History Tobacco Use Types [...] st Contact Info) Description 03/14/2025 Procedure Pass [facility] [place] [address] [place] [address] [address] 03/28/2025 11:00 AM EDT Office Visit [address] [address] Paul Gottlieb, ACADEMIC RECORDS SPECIALIST 29 [place] [address] [email or web address] 05/01/2025 9:30 AM EST Office Visit [facility] Pulmonary, Allergy and Critical Care Medicine 10 [facility] [place] [address] Jared Lee MD [address] [address] 06/22/2025 11:00 AM EST Appointment [facility] - CT [address] [address] Jodie Mcmahan MD [address] [place] [address] [email or web address] 06/22/2025 11:40 AM EST Office Visit [facility] Otol[facility]ology [facility] 0 [facility] [address] [place] [phone] Peter Melgoza MD [facility], [address] [place] [address] [email or web address] documented as of this encounter Visit Diagnoses Diagnosis Breast screening Breast screening, unspecified documented in [...] documented as of this encounter Care Teams Classroom Coordinator Relationship Specialty Start Date End Date Racquel Greenfield DO [address] [place] [address] Orthopedics & Sports Medicine, [place] [address] PCP - General 10/19/17 05/28/20 Em Parekh CNP [address] [place] [address] PCP - General Internal Medicine 05/29/20 06/25/20 Em Parekh CNP [address] [place] [address] PCP - General Internal Medicine 06/26/20 11/15/22 Clarence Bales MD 40 [place] [address] PCP - General Internal Medicine 11/16/22 12/03/22 Paul Gottlieb, DANNY 29 [place] [address] PCP - General Family Medicine 12/04/22 Violeta Melo NP [address] [place] [address] Historical LMR Provider 03/24/17 Fransisco Rodriguez DO [address] [place] [address], [address] [place] [address] [email or web address] Historical LMR Provider 03/24/17 08/27/20 Shelby Munguia NP [address] [place] [address] Historical LMR Provider 03/24/17 Kayli Loo CNP 15 [facility], [address] [place] [address] Historical LMR Provider 03/24/17 08/27/20 Manda Atwood NP 30 [place] [address] Historical LMR Provider 03/24/17 Chirag Hairston MD 22 [place] [address] Historical LMR Provider 03/24/17 Kim De Santiago MD [address] [place] [address] [address] [place] [address] [email or web address] Historical LMR Provider 03/24/17 1 Marcus Liang MD [address] [place] [address] [address] [place] [address] [email or web address] Historical LMR Provider 03/24/17 08/27/20 Nico Vazquez MD [address] [place] [address] Orthopedics & Sports Medicine, [place] [address] [email or web address] Historical LMR Provider 03/24/17 documented as of this encounter Additional Source Comments The information contained in this document represents components of the legal health record. It is not the complete legal health record.[facility]
--- OUTSIDE RECORDS SUMMARY | 2025-03-21 15:56 | XMS_ITS | Encounter Summary ---
Author Organization [facility] Address [address] [place] [address] Phone Care Team Providers Care Maintenance Manager Name Role Phone Violeta Melo HAIRMASTERS MANAGER Unavailable Fransisco Rodriguez DO Unavailable Shelby Munguia HAIRMASTERS MANAGER Unavailable Kayli Loo GRAIN SHOVELER Unavailable Manda Atwood HAIRMASTERS MANAGER Unavailable [phone] Chirag Hairston MD Unavailable [phone] Kim De Santiago MD Unavailable [phone] Marcus Liang MD Unavailable [phone] Nico Vazquez MD Unavailable [phone] Racquel Greenfield DO Primary Care Provider [phone] Em Parekh CNP Primary Care Provider Em Parekh CNP Primary Care Provider Clarence Bales MD Primary Care Provider [phone] Paul Gottlieb GRAIN SHOVELER Primary Care Provider [phone] Encounter Details Date Type Department Care Team (Late st Contact Info) Description 11/03/2018 Ancillary Orders Virtual Department 30 [place] [address] Racquel Greenfield DO [address] [place] [address] Abnormal mammogram Social History Tobacco Use Types Packs/Day Years [...] st Contact Info) Description 03/14/2025 Procedure Pass [facility] [place] CT [address] [address] 03/28/2025 11:00 AM EDT Office Visit [address] [address] Paul Gottlieb, GRAIN SHOVELER 29 [place] [address] 05/01/2025 9:30 AM EST Office Visit [facility] Pulmonary, Allergy and Critical Care Medicine 10 [facility] [place] [address] Jared Lee MD [address] [address] 06/22/2025 11:00 AM EST Appointment [facility] Imaging - CT [address] [address] Jodie Mcmahan MD [address] [place] [address] [email or web address] 06/22/2025 11:40 AM EST Office Visit [facility] [address] [phone] Peter Melgoza MD [facility], [address] [place] [address] [email or web address] documented as of this encounter Results * BI US BREAST LIMITED (RIGHT) (11/15/2018 2:57 PM EDT) Anatomical Region Laterality Modality Breast Right, Breast Bilateral Right U ltrasound 11/15/2018 2:31 PM EDT Impressions 11/15/2018 3:08 PM EDT Subcentimeter cyst corresponds with the mammographic abnormality. No further workup needed. Routine screening mammography is recommended. Results were discussed with the patient at completion of the procedure. BI-RADS CATEGORY: 2 - Benign finding. Breast parenchyma is composed of scattered fibroglandular densities. POS - CDHMAMA Narrative 11/15/2018 3:08 PM EDT HISTORY: Call back from a screening mammogram FINDINGS: Patient is recalled from a screening mammogram performed 11/02/2018 for additional imaging on the right. Spot compression MLO and CC views were performed with 2-D C view and 3-D tomosynthesis. There is a 5 mm circumscribed lesion in the slightly outer breast at approximately the 2 o'clock position, 8 cm from the nipple. Sonography shows a corresponding 4 x 3 x 2 mm anechoic lesion with minimal through-transmission and avascularity indicating a cyst. Procedure Note Asim Mcmahan MD - 11/15/2018 HISTORY: Call back from a screening mammogram FINDINGS: Patient is recalled from a screening mammogram performed 11/02/2018 foradditional imaging on the right. Spot compression MLO and CC views wereperformed with 2-D C view and 3-D tomosynthesis. There is a 5 mm circumscribed lesion in the slightly outer breast atapproximately the 2 o'clock position, 8 cm from the nipple. Sonographyshows a corresponding 4 x 3 x 2 mm anechoic lesion with minimalthrough-transmission and avascularity indicating a cyst. IMPRESSION: Subcentimeter cyst corresponds with the mammographic abnormality. Nofurther workup needed. Routine screening mammography is recommended. Results were discussed with the patient at completion of the procedure. BI-RADS CATEGORY: 2 - Benign finding. Breast parenchyma is composed of scattered fibroglandular densities. POS - CDHMAMA us Racquel Greenfield DO IMG US BREAST Final Resu lt * BI MAMMOGRAM DIAGNOSTIC WITH TOMOSYNTHESIS WITH CAD (RIGHT) (11/15/2018 2:22 PM EDT) Anatomical Region Laterality Modality Breast Right, Breast Bilateral Right M ammography 11/15/2018 2:31 PM EDT Impressions 11/15/2018 3:08 PM EDT Subcentimeter cyst corresponds with the mammographic abnormality. No further workup needed. Routine screening mammography is recommended. Results were discussed with the patient at completion of the procedure. BI-RADS CATEGORY: 2 - Benign finding. Breast parenchyma is composed of scattered fibroglandular densities. POS - CDHMAMA Narrative 11/15/2018 3:08 PM EDT HISTORY: Call back from a screening mammogram FINDINGS: Patient is recalled from a screening mammogram performed 11/02/2018 for additional imaging on the right. Spot compression MLO and CC views were performed with 2-D C view and 3-D tomosynthesis. There is a 5 mm circumscribed lesion in the slightly outer breast at approximately the 2 o'clock position, 8 cm from the nipple. Sonography shows a corresponding 4 x 3 x 2 mm anechoic lesion with minimal through-transmission and avascularity indicating a cyst. us Racquel LANDRYG MG EXAMS Final Resu lt documented in this encounter Visit Diagnoses Diagnosis Abnormal mammogram Abnormal mammogram, unspecified Abnormal mammogram Abnormal mammogram, unspecified Abnormal mammogram Abnormal mammogram, unspecified documented in this encounter Additional Health [...] documented as of this encounter Care Teams Maintenance Manager Relationship Specialty Start Date End Date Racquel Greenfield DO [address] [place] [address] Orthopedics & Sports Medicine, [facility] [place] [address] PCP - General 10/19/17 05/28/20 Em Parekh CNP 40 [place] [address] PCP - General Internal Medicine 05/29/20 06/25/20 Em Parekh CNP 40 [place] [address] PCP - General Internal Medicine 06/26/20 11/15/22 Clarence Bales MD 40 [place] [address] PCP - General Internal Medicine 11/16/22 12/03/22 Paul Gottlieb, DANNY 29 [facility] [place] [address] [email or web address] PCP - General Family Medicine 12/04/22 Violeta Melo NP 1 [place] [address] Historical LMR Provider 03/24/17 Fransisco Rodriguez DO [address] [place] [address], [address] [place] [address] [email or web address] Historical LMR Provider 03/24/17 08/27/20 Shelby Munguia NP [address] [place] [address] Historical LMR Provider 03/24/17 Kayli Loo CNP [address] [address] [email or web address] Historical LMR Provider 03/24/17 08/27/20 Manda Atwood NP 30 [place] [address] Historical LMR Provider 03/24/17 Chirag Hairston MD 22 [place] [address] Historical LMR Provider 03/24/17 Kim De Santiago MD [address] [place] [address] 7 [place] [address] [email or web address] Historical LMR Provider 03/24/17 1 Marcus Liang MD [address] [place] [address] [address] [place] [address] [email or web address] Historical LMR Provider 03/24/17 08/27/20 Nico Vazquez MD [address] [place] [address] Orthopedics & Sports Medicine, [facility] [address] [email or web address] Historical LMR Provider 03/24/17 documented as of this encounter Additional Source Comments The information contained in this document represents components of the legal health record. It is not the complete legal health record.[facility]
--- OUTSIDE RECORDS SUMMARY | 2025-03-21 15:56 | XMS_ITS | Encounter Summary ---
Author Organization [facility] Address [address] [place] [address] [place] [address] Phone Care Team Providers Care Business Office Associate Name Role Phone KieraEm small Karmen CELL PLASTERER Primary Care Provider Clarence Bales MD Primary Care Provider [phone] Paul Gottlieb CNP Primary Care Provider [phone] Encounter Details Date Type Department Care Team (Late st Contact Info) Description 06/12/2022 Procedure Pass [facility], Ct Scan - [address] [address] Social History Tobacco Use Types Packs/Day Years [...] 03/14/2025 Procedure Pass [facility] - [facility] Main [place] [address] [place] [address] 03/28/2025 11:00 AM EDT Office Visit [address] [id number] Paul Gottlieb CNP 29 [place] [address] 05/01/2025 9:30 AM EST Office Visit [facility] Pulmonary, Allergy and Critical Care Medicine 10 [facility] [place] [address] Jared Lee MD [address] [place] [address] 06/22/2025 11:00 AM EST Appointment [facility] [address] [place] [address] Jodie Mcmahan MD [address] [place] [address] [email or web address] 06/22/2025 11:40 AM EST Office Visit [facility] 0 [facility] [address] [place] [address] Peter Melgoza MD [facility], [address] [place] [address] [email or web address] documented as of this encounter Visit Diagnoses Not on filedocumented [...] documented as of this encounter Care Teams Business Office Associate Relationship Specialty Start Date End Date Em Parekh CNP 40 [place] [address] PCP - General Internal Medicine 06/26/20 11/15/22 Clarence Bales MD 40 [place] [address] PCP - General Internal Medicine 11/16/22 12/03/22 Paul Gottlieb CNP [address] [place] [address] [place] [address] [email or web address] PCP - General Family Medicine 12/04/22 documented as of this encounter Additional Source Comments The information contained in this document represents components of the legal health record. It is not the complete legal health record.[facility]
--- OUTSIDE RECORDS SUMMARY | 2025-03-21 15:56 | XMS_ITS | Encounter Summary ---
Author Organization [facility] Address [address] [place] [address] [place] [address] Phone Care Team Providers Care E Commerce Analyst Name Role Phone Violeta Melo LEAF TINNER Unavailable Fransisco Rodriguez DO Unavailable Shelby Munguia LEAF TINNER Unavailable [phone] Kayli Loo COLLATOR HAND Unavailable Manda Atwood LEAF TINNER Unavailable [phone] Chirag Hairston MD Unavailable [phone] Kim De Santiago MD Unavailable Marcus Liang MD Unavailable [phone] Nico Vazquez MD Unavailable [phone] Racquel Greenfield DO Primary Care Provider [phone] Em Parekh CNP Primary Care Provider Em Parekh CNP Primary Care Provider Clarence Bales MD Primary Care Provider Paul Gottlieb COLLATOR HAND Primary Care Provider [phone] Encounter Details Date Type Department Care Team (Late st Contact Info) Description 03/27/2020 Transcribe Orders [facility] 30 [place], [place] [phone] Natanael Barney DO 22 [place], [place] [id number] Social History Tobacco Use Types Packs/Day Years [...] st Contact Info) Description 03/14/[address] [facility] [place] CT [address] [address] 03/28/2025 11:00 AM EDT Office Visit [address] [address] Paul Gottlieb, COLLATOR HAND 29 [place] [address] 05/01/2025 9:30 AM EST Office Visit [facility] Pulmonary, Allergy and Critical Care Medicine 10 [facility] [place] [address] Jared Lee MD [address] [address] 06/22/2025 11:[address] [facility] [place] CT [address] [address] Jodie Mcmahan MD [address] [place] [address] [email or web address] 06/22/2025 11:40 AM EST Office [facility] [place] [address] [phone] Peter Melgoza MD [facility], [address] [place] [address] [email or web address] documented as of this encounter Visit Diagnoses [...] documented as of this encounter Care Teams E Commerce Analyst Relationship Specialty Start Date End Date Racquel Greenfield DO [address] [place] [address] Orthopedics & Sports Medicine, [place] [address] PCP - General 10/19/17 05/28/20 Em Parekh CNP [address] [place] [address] PCP - General Internal Medicine 05/29/20 06/25/20 Em Parekh CNP [address] [place] [address] PCP - General Internal Medicine 06/26/20 11/15/22 Clarence Bales MD 40 [place] [address] PCP - General Internal Medicine 11/16/22 12/03/22 Paul Gottlieb, DANNY 29 [facility] [place] [address] [email or web address] PCP - General Family Medicine 12/04/22 Violeta Melo NP 1 [place] [address] Historical LMR Provider 03/24/17 Fransisco Rodriguez DO [address] [place] [address], [address] [place] [address] [email or web address] Historical LMR Provider 03/24/17 08/27/20 Shelby Munguia NP 29 [place] [address] Historical LMR Provider 03/24/17 Kayli Loo CNP [address] [facility], 2nd [place] [address] [email or web address] Historical LMR Provider 03/24/17 08/27/20 Manda Atwood NP 30 [place] [address] Historical LMR Provider 03/24/17 Chriag Hairston MD 22 [place] [address] Historical LMR Provider 03/24/17 Kim De Santiago MD [address] [place] [address] [address] [place] [address] [email or web address] Historical LMR Provider 03/24/17 1 Marcus Liang MD [address] [place] [address] [address] [place] [address] [email or web address] Historical LMR Provider 03/24/17 08/27/20 Nico Vazquez MD [address] [place] [address] Orthopedics & Sports Medicine, [place] [address] [email or web address] Historical LMR Provider 03/24/17 documented as of this encounter Additional Source Comments The information contained in this document represents components of the legal health record. It is not the complete legal health record.[facility]
--- OUTSIDE RECORDS SUMMARY | 2025-03-21 15:56 | XMS_ITS | Encounter Summary ---
Author Organization [facility] Address [address] [place] [address] Phone Care Team Providers Care Municipal Court Judge Name Role Phone Violeta Melo PERMIT AGENT Unavailable Fransisco Rodriguez DO Unavailable Shelby Munguia PERMIT AGENT Unavailable Kayli Loo RECEIVABLE CLERK Unavailable Manda Atwood PERMIT AGENT Unavailable [phone] Chirag Hairston MD Unavailable [phone] Kim De Santiago MD Unavailable Marcus Liang MD Unavailable [phone] Nico Vazquez MD Unavailable [phone] Racquel Greenfield DO Primary Care Provider [phone] Em Parekh RECEIVABLE CLERK Primary Care Provider Em Parekh RECEIVABLE CLERK Primary Care Provider Clarence Bales MD Primary Care Provider Paul Gottlieb [facility] Primary Care Provider [phone] Reason for Referral * Consultation (Within 1 month) - Closed Specialty Diagnoses / Procedures Referred By Johann asher Referred To Contact Gastroenterology Diagnoses Chronic diarrhea Adrian Gifford MD Phone: tel: fax: [email or web address]:[email or web address] Wilder Sanchez MD Phone: tel: fax: [email or web address] Referral ID Status Reason Start Date Expiration Date Visits Re quested Visits Authorized [id number] Closed 01/04/2018 01/04/2019 1 1 Encounter Details Date Type Department Care Team (Latest Contact Info) Description 01/04/2018 Transcribe Orders [facility] [address] [place] [address], 5th [place] [address] Racquel Greenfield DO [address] [place] [address] Chronic diarrhea (Primary Dx) Social History Tobacco Use Types Packs/Day Years Used Date Smoking Tobacco: Never Assessed Comments No Sex and Gender Information Value Date Recorded Sex Assigned at Female 03/12/2022 11:48 AM EDT Legal Sex Female 5:26 PM EST Gender Identity Female 03/12/2022 11:48 AM EDT Sexual Orientation Not on file documented as of this encounter Plan of Treatment Upcoming Encounters Date Type Department Care Team (Late st Contact Info) Description 03/14/2025 Procedure Pass [facility] Imaging - CT [address] [address] 03/28/2025 11:00 AM EDT Office Visit [facility] 29 [place] [address] Paul Gottlieb, RECEIVABLE CLERK 29 [place] [address] 05/01/2025 9:30 AM EST Office Visit [facility] Pulmonary, Allergy and Critical Care Medicine 10 [facility] [address] [place], [place] [phone] Jared Lee MD [address] [address] [email or web address] 06/22/2025 11:00 AM EST Appointment [facility] [place] [facility] 243 [place] [address] Jodie Mcmahan MD 243 [place] [address] [email or web address] 06/22/2025 11:40 AM EST Office Visit [facility] Otol[facility]ology [facility] 0 [facility] [address] [place] [address] Peter Melgoza MD [facility], [address] [place] [address] [email or web address] Scheduled Referrals Name Type Priority Associated Diagnoses Order Schedule Ambulatory referral to [facility] (Consult Requests Only) Outpatient Referral Routine Chronic diarrhea Ordered: 01/04/2018 documented as of this encounter Visit Diagnoses Diagnosis Chronic diarrhea- Primary Diarrhea documented in this encounter Additional Health Concerns [...] documented as of this encounter Care Teams Municipal Court Judge Relationship Specialty Start Date End Date Racquel Greenfield DO [address] [place] [address] Orthopedics & Sports Medicine, [place] [address] PCP - General 10/19/17 05/28/20 Em Parekh, DANNY 40 [place] [address] [email or web address] PCP - General Internal Medicine 05/29/20 06/25/20 Em Parekh, DANNY 40 [place] [address] [email or web address] PCP - General Internal Medicine 06/26/20 11/15/22 Clarence Bales MD 40 [place] [address] [email or web address] PCP - General Internal Medicine 11/16/22 12/03/22 Paul Gottlieb CNP [address] [place] [address] [place] [address] [email or web address] PCP - General Family Medicine 12/04/22 Violeta Melo NP [address] [place] [address] Historical LMR Provider 03/24/17 Fransisco Rodriguez DO [address] [place] [address], [address] [place] [address] [email or web address] Historical LMR Provider 03/24/17 08/27/20 Shelby Munguia NP 29 [place] [address] Historical LMR Provider 03/24/17 Kayli Loo, DNANY [address] [address] Historical LMR Provider 03/24/17 08/27/20 Manda Atwood NP 30 [place] [address] Historical LMR Provider 03/24/17 Chirag Hairston MD 22 [place] [address] Historical LMR Provider 03/24/17 Kim De Santiago MD [address] [place] [address] [address] [place] [address] [email or web address] Historical LMR Provider 03/24/17 1 Marcus Liang MD [address] [place] [address] [address] [place] [id number] [email or web address] Historical LMR Provider 03/24/17 08/27/20 Nico Vazquez MD [address] [place] [address] Orthopedics & Sports Medicine, [place] [address] [email or web address] Historical LMR Provider 03/24/17 documented as of this encounter Additional Source Comments The information contained in this document represents components of the legal health record. It is not the complete legal health record.[facility]
--- OUTSIDE RECORDS SUMMARY | 2025-03-21 15:56 | XMS_ITS | Encounter Summary ---
Author Organization [facility] Address [address] [place] [address] [place] [address] Phone Care Team Providers Care Windows Security Analyst Name Role Phone Violeta Melo SKYDIVING INSTRUCTOR Unavailable [phone] Fransisco Rodriguez DO Unavailable Shelby Munguia SKYDIVING INSTRUCTOR Unavailable Kayli Loo DRAIN TILE PRESS OPERATOR Unavailable Manda Atwood SKYDIVING INSTRUCTOR Unavailable [phone] Chirag Hairston MD Unavailable [phone] Kim De Santiago MD Unavailable Marcus Liang MD Unavailable [phone] Nico Vazquez MD Unavailable Racquel Greenfield DO Primary Care Provider [phone] Em Parekh DRAIN TILE PRESS OPERATOR Primary Care Provider Em Parekh CNP Primary Care Provider Clarence Bales MD Primary Care Provider Paul Gottlieb DRAIN TILE PRESS OPERATOR Primary Care Provider [phone] Encounter Details Date Type Department Care Team (Late st Contact Info) Description 10/17/2018 Ancillary Orders [facility], X-Ray - Main [facility] 30 [place] [address] Jean Pierre, Racquel J., DO [address] [place] [address] Social History Tobacco Use Types Packs/Day Years [...] 03/14/2025 Procedure Pass [facility] - CT [address] [address] 03/28/2025 11:00 AM EDT Office Visit [address] [address] Paul Gottlieb, [facility] 29 [place] [address] 05/01/2025 9:30 AM EST Office [place] [facility], Allergy and Critical Care Medicine 10 [facility] [place] [address] Jared Lee MD [address] [place] [address] 06/22/2025 11:00 AM EST Appointment [facility] - CT [address] [address] Jodie Mcmahan MD [address] [place] [address] [email or web address] 06/22/2025 11:40 AM EST Office Visit [facility] [place] 0 [facility] [address] [place] [address] Peter Melgoza MD [facility], [address] [place] [address] [email or web address] documented as of this encounter Visit [...] documented as of this encounter Care Teams Windows Security Analyst Relationship Specialty Start Date End Date Racquel Greenfield DO [address] [place] [address] Orthopedics & Sports Medicine, [place] [address] PCP - General 10/19/17 05/28/20 Em Parekh CNP [address] [place] [address] PCP - General Internal Medicine 05/29/20 06/25/20 Em Parekh CNP [address] [place] [address] PCP - General Internal Medicine 06/26/20 11/15/22 Clarence Bales MD 40 [place] [address] PCP - General Internal Medicine 11/16/22 12/03/22 Paul Gottlieb, DANNY [address] [place] [address] [place] [address] PCP - General Family Medicine 12/04/22 Violeta Melo NP [address] [place] [address] Historical LMR Provider 03/24/17 Fransisco Rodriguez DO [address] [place] [address], [address] [place] [address] [email or web address] Historical LMR Provider 03/24/17 08/27/20 Shelby Munguia NP [address] [place] [address] Historical LMR Provider 03/24/17 Kayli Loo CNP 15 [facility], 2nd [place] [address] Historical LMR Provider 03/24/17 08/27/20 Manda Atwood NP 30 [place] [address] Historical LMR Provider 03/24/17 Chirag Hairston MD 22 [place] [address] Historical LMR Provider 03/24/17 Kim De Santiago MD [address] [facility] [address] [place] [address] [email or web address] Historical LMR Provider 03/24/17 1 Marcus Liang MD [address] [place] [address] [address] [place] [address] [email or web address] Historical LMR Provider 03/24/17 08/27/20 Nico Vazquez MD [address] [place] [address] Orthopedics & Sports Medicine, [place] [address] [email or web address] Historical LMR Provider 03/24/17 documented as of this encounter Additional Source Comments The information contained in this document represents components of the legal health record. It is not the complete legal health record.[facility]
--- OUTSIDE RECORDS SUMMARY | 2025-03-21 15:56 | XMS_ITS | Patient Health Record ---
Author Organization [facility] Address [address] [facility] [address] [place] [address] Care Team Providers Care Assurance Analyst Name Role Phone GABRIELA WOOD MD Primary Care Provider Unavail able Molly Darling Unavailable [phone] Migration, Provider Unavailable Unavailable Allergies Allergen (clinical drug ingredient) Drug/Non Drug Allergy documented on EMR Reaction Allergy Type Onset Date Status DEMEROL HCL (uncoded) Unknown Allergy Active Reason For Referral No Information Medications Medication SIG (Take, Route, Frequency, Duration) Notes Start Date End Date Status NexIUM *Please review a nd pick correct [...] discontinue and re-order from Quick Search* Active Ferrex 150 Plus 150-50-50 MG 1 cap(s) orally once a day; Duration: 30 day(s) Active Vitamin B-12 *Please review a nd pick correct strength-formulatio n from Medispan options. If intended option is not shown, discontinue and re-order from Quick Search* Active Euflexxa 10 MG/ML 20 MG BY INTRA-ARTICULAR INJECTION ONCE A WEEK; Duration: 5 WEEK(S) *Please review and pick correct strength-formulatio n from Dissolvean options. If intended option is not shown, discontinue and re-order from Quick Search* Active Drisdol *Please review a nd pick correct strength-formulatio n from Dissolvean options. If intended option is not shown, discontinue and re-order from Quick Search* Active Wellbutrin 75 MG 1 TAB(S) ORALLY 3 TIMES A DAY; Duration: 30 DAY(S) *Please review and pick correct strength-formulatio n from Dissolvean options. If intended option is not shown, discontinue and re-order from Quick Search* Active Zoloft 100 MG 1 tab(s) orally once a day; Duration: 30 day(s) Active Effexor *Please review a nd pick correct strength-formulatio n from Hydrocision options. If intended option is not shown, discontinue and re-order from Quick Search* Active Librax 5-2.5 MG orally as needed; Duration: 10 day(s) Active Vitamin B12 *Please review a nd pick correct strength-formulatio n from Hydrocision options. If intended option is not shown, discontinue and re-order from Quick Search* Active Vitamin D3 50 MCG (2000 UT) 1 tab(s) orally once a day; Duration: 30 day(s) Active PROPANOLOL 160MG DIRECTED *Please review for potential replacement for e-prescription and drug interaction check* Active Thera - 1 tab(s) orally once a day; Duration: 30 day(s) Active VOLTAREN XR *Please review f or potential replacement for e-prescription and drug interaction check* Active Crestor *Please review a nd pick correct strength-formulatio n from Hydrocision options. If intended option is not shown, discontinue and re-order from Quick Search* Active Levsin 0.125 MG 1 tab(s) orally QID; Duration: 14 day(s) 06/10/2010 Active Questran Light 4 GM/DOSE 4 g orally BID; Duration: 30 day(s) 06/10/2010 Active Multivitamin *Please review a nd pick correct strength-formulatio n from Dissolvean options. If intended option is not shown, discontinue and re-order from Quick Search* Active Motrin IB 200 MG 2 tab(s) orally every 4 hours Active Imodium *Please review a nd pick correct strength-formulatio n from iOpenerspan options. If intended option is not shown, discontinue and re-order from Quick Search* Active traZODone HCl *Please review a nd pick correct strength-formulatio n from Dissolvean options. If intended option is not shown, discontinue and re-order from Quick Search* Active NexIUM 40 MG 1 TAB ORAL QD; Duration: 30 DAYS *Please review and pick correct strength-formulatio n from Dissolvean options. If intended option is not shown, discontinue and re-order from Quick Search* Active Provigil 200 MG 1 tab(s) orally once a day (in the morning); Duration: 30 day(s) Active Crestor 10 MG 1 tab(s) orally once a day (at bedtime); Duration: 30 day(s) Active Encounters Encounter Location Date Provider Diagnosis [facility] [address] [facility] [address] [place] [address] 10/14/2024 Provider Migration Abdominal pain, LUQ 789.02 and Irritable colon 564.1 Assessments Encounter Date Diagnosis (ICD Code) Assessment Notes Treatment Notes Treatment Clinical Notes Section Notes 10/14/2024 Abdominal pain, LUQ (ICD9-CM - 789.02) 10/14/2024 Irritable colon (ICD9-CM - 564.1) Plan Of Treatment Pending Test Test Name Order Date ALT, AST 06/10/2010 BUN, Creatinine 03/05/2015 Amylase 06/10/2010 Bilirubin : total 06/10/2010 Alk phosphatase 06/10/2010 CT abdomen and pelvis with IV and po con trast 03/05/2015 CBC 06/10/2010 Insurance Providers Payer Name Payer Address Payer Phone Subscriber Number Group Number Insured Name Patient Relationship to Insured Coverage Start Date Coverage End Date (Do not use) BLUE [employer] OF STATE [address] [place] [address] [id number] CHITRA NIETO Self - patient is the insured Medical (General) History Medical History History ICD Code Hypercholesterolemia Esophageal reflux Irritable bowel syndrome Fibromyalgia osteoarthritis Sleep apnea Anemia sinus infection tremors colon polyps, nl colol 2011 Surgical History Surgery Date(Month/Year) Cholecystectomy Hysterectomy Knee surgery sinus surgery
--- OUTSIDE RECORDS SUMMARY | 2025-03-21 15:56 | XMS_ITS | Encounter Summary ---
Author Organization [facility] Address [address] [facility] [address] [place] [phone] Phone Care Team Providers Care Pile Driving Technician Name Role Phone Dominic Gottliebie Paz DELGADO Primary Care Provider [phone]- [phone] Encounter Details Date Type Department Care Team ([facility] st Contact Info) Description 01/04/2025 Procedure Pass [facility] - [facility] Main [place] [address] [place] [address] Social History Tobacco Use Types Packs/Day Years [...] with a working camera? Not on file Intimate Partner Violence Answer Date R ecorded Denied Basic Needs Not on file 10/25/2023 In the past 12 months have y ou been in a relationship with a person who hurts, threatens, or tries to control you? No 10/25/2023 Worried food would run out Not on file 10/24 In the past 12 months have y ou been in a relationship with a person who hurts, threatens, or tries to control you? No 10/25/2023 Comments No Sex and Gender Information Value Date Recorded Sex Assigned at Female 03/12/2022 11:48 AM EDT Legal Sex Female 5:26 PM EST Gender Identity Female 03/12/2022 11:48 AM EDT Sexual Orientation Not on file documented as of this encounter Plan of Treatment Upcoming Encounters Date Type Department Care Team (Late st Contact Info) Description 03/14/2025 [place] [facility] [place] [address] [address] 03/28/2025 11:00 AM EDT Office Visit [facility] [address] [place] [address] Paul Gottlieb, EXTERIOR WORK HELPER [address] [place] [address] [email or web address] 05/01/2025 9:30 AM EST Office Visit [facility] [address] [place] [address] Jared Lee MD [address] [place] [address] 06/22/2025 11:00 AM EST Appointment [facility] [place] [address] [address] Jodie Mcmahan MD [address] [place] [phone] [email or web address] 06/22/2025 11:40 AM EST Office Visit [facility] [place] [facility] [address] [facility] [address] [place] [phone] Peter Melgoza MD [facility], [address] [place] [address] [email or web address] documented as of this encounter Visit Diagnoses Not on filedocumented in this encounter Additional Health Concerns Assessment Noted Time PHQ-2 Depression Total Score: 2 10/25/19 24 1:52 PM EDT documented as of this encounter Care Teams Pile Driving Technician Relationship Specialty Start Date End Date Paul Gottlieb CNP [address] [facility] [place] [address] [email or web address] PCP - General Family Medicine 12/04/22 documented as of this encounter Additional Source Comments The information contained in this document represents components of the legal health record. It is not the complete legal health record.[facility]
--- OUTSIDE RECORDS SUMMARY | 2025-03-21 15:57 | XMS_ITS | Encounter Summary ---
Author Organization [facility] Address [address] [place] [address] Phone Care Team Providers Care Websphere Consultant Name Role Phone BullPaul DANNY Primary Care Provider [phone]- [phone] Encounter Details Date Type Department Care Team (Late st Contact Info) Description 12/11/2024 Hospital Encounter [facility] [address] [place] [phone] Julius Odom MD, MPH [address] [place] [phone] [email or web address] Social History Tobacco Use Types Packs/Day Years [...] 4:15 PM EDT Vaishnavi José RN * [place] Suicide Severity Rating Scale (Screener/Recent Self-Report) Question [...] 03/14/2025 Procedure Pass [facility] - [facility] [address] [address] 03/28/2025 11:00 AM EDT Office Visit [facility] [address] [place] [address] Paul Gottlieb, PROPERTY MAINTENANCE SUPERVISOR [address] [place] [address] 05/01/2025 9:30 AM EST Office Visit [facility] [address] [place] [phone] Jared Lee MD [address] [place] [phone] 06/22/2025 11:00 AM EST Appointment [facility] Imaging - CT [address] [address] Jodie Mcmahan MD [address] [place] [phone] [email or web address] 06/22/2025 11:40 AM EST Office Visit [facility] Otolaryngology [facility] 0 [facility] [address] [place] [phone] Peter Melgoza MD [facility], [facility] [address] [place] [address] [email or web address] documented as of this encounter Visit Diagnoses Not on filedocumented in this encounter Additional Health Concerns Assessment Noted Time PHQ-2 Depression Total Score: 2 10/25/19 24 1:52 PM EDT documented as of this encounter Care Teams Websphere Consultant Relationship Specialty Start Date End Date Paul Gottlieb CNP [address] [place] [address] [email or web address] PCP - General Family Medicine 12/04/22 documented as of this encounter Additional Source Comments The information contained in this document represents components of the legal health record. It is not the complete legal health record.[facility]
--- OUTSIDE RECORDS SUMMARY | 2025-03-21 15:57 | XMS_ITS | Data Portability ---
Author Organization [place] [facility] Address [address] [place] [phone] Care Team Providers Care Statistical Secretary Name Role Phone SHERLY BRUNO Primary Care Provider Assessment Encounter Date Assessment Date Assessment LastModified by Organization Details LastModified Time 04/02/2020 04/02/2020 Overview/History : This is a 69-year-old female, new to [employer], who calls with complaints of left eye redness and crusting. She states for approximately 1 week her left eye has been having itchiness, crusting in the morning and mild redness. She states she believes it starting to occur in the right eye as well over the past day. She denies any blurred vision, vision changes, headache. She denies any known contact with anyone with pinkeye/conjunct ivitis. Exam: Neuro intact, A&O x4. Appropriate. Face symmetric. EOMs intact. Vital signs stable, afebrile Lung sounds clear throughout equal Apical-regular strong, 2+ radial bilateral Eyes-left eye with mild erythema, no edema, no drainage noted during exam. EOM intact. No obvious corneal abrasion noted. Right eye-no erythema noted, no edema noted, no drainage noted. EOM intact. DDx considered, but not limited to: Conjunctivitis - probable given sx and mild erythema noted. Corneal abrasion - not likely given exam findings, no vision changes, no pain Seasonal allergies - possible given sx and no drainage noted on exam with mild erythema Work up/Results: none Erythromycin ointment prescribed and to be used on both eyes Frequent hand-washing Use separate wash clothes when cleaning both eyes Time On Scene with Patient: 00:21:54 [email or web address] Not available 04/02/2020 14:33:18 Plan of Treatment Reminders Order Date Submit Date Provider Last Modified By Organization Details Last Modified Time Details Appointments None recorded. Lab None recorded. Referral None recorded. Procedures None recorded. Surgeries None recorded. Imaging None recorded. Medication Orders erythromyc in 5 mg/gram (0.5 %) eye ointment 2019 020 INTERFACE [id number], [address] [facility], [place], [address], 0 14:33:51 Patient TargetsNo targets recorded. Patient Instructions Encounter Date Encounter Id Patient Instructions Last Modified By Organization Details Last Modified Time 04/02/2020 [id number] [facility]. We cannot always find the exact cause of your symptoms during your initial visit. Please follow up with your primary care provider or specialist as needed to be rechecked or seek medical attention if your symptoms do not go away or get worse. If you develop any new or worsening symptoms and need after hours care, please go to nearest ER and/or call 911. If you have additional concerns or develop a change in your condition between 8am-10pm, please call [facility] at [phone] to help navigate your care. [email or web address] Not available 04/02/2020 14:33:59 Reason for Referral None Reported. Medical Equipment None Reported. Allergies Allergen ID Allergen Name Allergen Category Reaction Reaction Severity Criticality Documentation Date Start Date Code Code System Note Provider Name and Address Organization Details Recorded Time 765039 Demerol medicatio n Not available Not available Not available 04/02/2020 01149 1 RxNorm TONE POPE NP [address] [place] [address], [phone] [facility] [place] [facility] 0 13:56:45 Medications Name Sig Start Date Stop Date Status Note LastModified by Organization Details LastModified Time primidone 50 mg tablet active Not Available Not Available Not Available prednisone 10 mg tablet active Not Available Not Available Not Available diclofenac ER 100 mg tablet,exte nded release 24 hr TAKE 1 TABLET BY MOUTH EVERY DAY active Not Available Not Available No t Available prednisone 5 mg tablet active Not Available Not Available Not Available topiramate 25 mg tablet active Not Available Not Available Not Available amlodipine 2.5 mg tablet active Not Available Not Available Not Available sulfamethox azole 800 mg-trimetho prim 160 mg tablet TAKE 1 TABLET BY MOUTH TWICE A DAY FOR 3 DAYS active Not Available Not Available No t Available tramadol 50 mg tablet active Not Available Not Available No t Available nystatin-tr iamcinolone 100,000 unit/gram-0 .1 % topical ointment APPLY TO AFFECTED AREA TWICE A DAY active Not Available Not Available No t Available modafinil 200 mg tablet TAKE 1 TABLET BY MOUTH 1 TIME PER DAY active Not Available Not Available No t Available lorazepam 0.5 mg tablet active Not Available Not Available Not Available triamcinolo ne acetonide 0.025 % topical cream APPLY SPARINGLY TO RASH UNDER BREASTS TWICE A DAY WITH KETOCONAZ OLE FOR 1 2 WEEKS, THEN STOP. active Not Available Not Available No t Available prednisone 1 mg tablet active Not Available Not Available Not Available colesevelam 625 mg tablet TAKE 3 TABLETS BY MOUTH TWICE DAILY active Not Available Not Available No t Available prednisone 2.5 mg tablet active Not Available Not Available Not Available erythromyci n 5 mg/gram (0.5 %) eye ointment APPLY 1 CM RIBBON INTO THE LOWER CONJUNCTI SMITA SAC(S) IN THE AFFECTED EYE(S) BY OPHTHALMI C ROUTE 3 TIMES PER DAY for 5 days active Not Available Not Available No t Available cyanocobala min (vit B-12) 1,000 mcg/mL injection solution active Not Available Not Available Not Available fluoxetine 10 mg capsule TAKE 1 CAPSULE BY MOUTH EVERY DAY active Not Available Not Available No t Available lisinopril 5 mg tablet active Not Available Not Available Not Available hydrochloro thiazide 25 mg tablet active Not Available Not Available No t Available ergocalcife rol (vitamin D2) 1,250 mcg (50,000 unit) capsule active Not Available Not Available Not Available nystatin 100,000 unit/gram topical powder active Not Available Not Available Not Available propranolol 20 mg tablet TAKE 1 TABLET BY MOUTH EVERY DAY DIRECTED active Not Available Not Available No t Available ketoconazol e 2 % topical cream active Not Available Not Available Not Available dextroamphe tamine-amph etamine 5 mg tablet 04/02 completed Not Available Not Available Not Available esomeprazol e magnesium 20 mg capsule,del ayed release TAKE 1 CAPSULE BY MOUTH EVERY DAY active Not Available Not Available No t Available Antifungal (miconazole ) 2 % topical cream APPLY TO AFFECTED AREA (CORNER OF HER MOUTH) 2 TIMES DAILY active Not Available Not Available No t Available rosuvastati n 10 mg tablet active Not Available Not Available Not Available duloxetine 30 mg capsule,del ayed release active Not Available Not Available Not Available magnesium 400 mg (as magnesium oxide) capsule TAKE 1 CAPSULE BY MOUTH EVERY DAY active Not Available Not Available No t Available Shingrix (PF) 50 mcg/0.5 mL intramuscul ar suspension, kit active Not Available Not Available Not Available Vitals Date Recorded Body temperature Heart rate Respiratory rate Oxygen saturation Oxygen saturation in Arterial blood by Pulse oximetry Systolic And Diastolic Provider Name and Address Organization Details Last Updated DateTime 0 98.3 [degF] 104 /min 24 /min 96 % 96 % 142/72 mm[Hg] Not Available [facility] 0 13:59:26 Social History None recorded. Functional Status None recorded. Mental Status None recorded. Family History Relationship Description Onset Age of this Age Resolved Age Notes LastModified by Organization Details LastModified Time Father Coronary arterioscler osis [email or web address] Not available 2019 13:59:43 Medical History No medical history recorded. Gynecological HistoryNo gynecological history recorded. Obstetrics History GPAL:G 0 P 0 0 0 0 Past Encounters Encounter ID Performer Location Encounter Start Date Encounter Closed Date Diagnosis/Indication Diagnosis SNOMED-CT Code Diagnosis ICD10 Code Diagnosis IMO Codes Diagnosis Note [id number] TONE OPPE NP [facility] [address] [place] [phone] 04/02/2020 13:53:57 04/02/2020 14:40:36 Conjunctivitis 1108653 H10.9 Health Concerns Section Related Observation LastModified by Organization Detai ls LastModified Time None Recorded Concern Status LastModified by Organization Details LastModified Time None Recorded Advance Directives Directive None Recorded Payers Insurance Date Sequence Insurance Name Policy Number Policy Whitlock Covered Member ID Whitlock Member ID Guarantor Name 04/02/2020 1 [facility] (MEDICARE REPLACEMENT/A DVANTAGE - HMO) [id number] Giuliana Spring [id number] Giuliana Spring 04/02/2020 1 *SELF PAY* Giuliana Spring [id number] Giuliana Spring Notes Date Note Type Note Provider Name and Address Organization Details Recorded Time 04/02/2020 text/html General HPI Template - DHReported by Patient This is a 69-year-old female, [facility], with complaints of left eye. Her past medical history includes polymyalgia rheumatica, Malabsorption, IBS, GERD, hiatal hernia, arthritis, fibromyalgia, pernicious anemia, familiar tumor and facial neuralgia. She sees her left eye has been bothering her for approximately 1 week. She states it is itchy, with mild burning, pink and crusty in the mornings. She believes it is now starting in her right eye as similar symptoms have developed over the past day or so. She has any contact with any 1 with pink eye. She denies any seasonal eye allergies. She denies any headache, blurred vision, vision changes. TONE POPE NP [address] [facility], [place], [address], [place] [facility] 04/02/2020 14:34:11 OBGyn Episode No OBEpisode recorded.
--- OUTSIDE RECORDS SUMMARY | 2025-03-21 15:57 | XMS_ITS | Clinical Summary ---
Author Organization [facility] Address [address] [place] [phone] Phone Care Team Providers Care Inside Sales Advertising Executive Name Role Phone Paul Gottlieb CNP Primary Care Provider [phone] Allergies Active Allergy Reactions Criticality Noted Date Comments Hydromorphone High 02/20/2025 nausea vomiting shaking Meperidine Nausea And Vomiting,Nausea and/or Vomiting,Unknown 08/31/2018 Other Reaction(s): Not available Procaine Unknown 01/06/2021 Shakey Thimerosal Nausea and/or Vomiting 09/11/2021 Medications multivitamins capsule Take 1 capsule by mouth daily. Active loperamide (IMODIUM) 2 mg capsule Take 2 mg by mouth 4 (four) times a day as needed for diarrhea. Active rosuvastatin (CRESTOR) 20 MG tablet Take 20 mg by mouth daily. 020 Active cyanocobalamin (VITAMIN B-12) 1,000 mcg/mL injectionIndica tions:B12 deficiency Inject 1 mL (1,000 mcg total) into the muscle every 30 (thirty) days. 1 ml Injection monthly 1 mL 021 Active Additional Information Patient taking differently:1,000 mcg Intramuscular Every 30 days,1 ml Injection monthly due to take on 03/01, Reported on 03/05/2025 aspirin 81 MG EC tablet Take 81 mg by mouth daily. Active diclofenac sodium (VOLTAREN) 1 % Gel Apply 2 g topically daily. Active MAGNESIUM ORAL Take 250 mg by mouth 3 (three) times a week. Active amoxicillin (AMOXIL) 500 MG capsule Take 2,000 mg by mouth once as needed (prior to dental work). TAKE 4 CAPSULES BY MOUTH 1 HOUR PRIOR TO DENTAL APPOINTMENT 024 Active acetaminophen (TYLENOL EXTRA STRENGTH) 500 MG tablet Take 500 mg by mouth every 6 (six) hours as needed for pain (specific location in comments). Active L. gasseri-B. bifidum-B longum 1.5 billion cell Cap Take by mouth. Activ e hydroCHLOROthia zide 12.5 MG tabletIndicatio ns:Essential hypertension TAKE 1 TABLET BY MOUTH EVERY DAY 90 tablet 3 025 Active nystatin cream Apply topically 2 (two) times a day. 30 g 025 Active nystatin (NYSTOP) powder Apply topically 4 (four) times a day. 60 g 025 Active allopurinol (ZYLOPRIM) 300 MG tabletIndicatio ns:Hyperuricemi a Take 1 tablet (300 mg total) by mouth daily. 90 tablet 1 025 Active oxymetazoline (AFRIN) 0.05 % nasal spray 2 sprays by Nasal route 2 (two) times a day. 30 mL 025 Active POTASSIUM GLUCONATE ORAL Take by mouth. Active ferrous sulfate 143 mg (45 mg anvik iron) TbER Take 143 mg by mouth daily with breakfast. Active ergocalciferol (DRISDOL) 50,000 unit capsuleIndicati ons:Vitamin D deficiency 1 capsule by mouth every other week 12 capsule 3 025 Active oxyCODONE 5 MG immediate release tablet Take 1-2 tablets (5-10 mg total) by mouth every 4 (four) hours as needed for pain (specific location in comments). Partial fill ok 10 tablet 025 Active acetaminophen (TYLENOL) 325 mg tablet Take 2 tablets (650 mg total) by mouth every 6 (six) hours as needed for pain (specific location in comments). 025 Active sodium bicarb-sodium chloride (NEILMED SINUS RINSE) pkdv 1 packet by Each Nare route 3 (three) times a day. 025 Active chlorhexidine (PERIDEX) 0.12 % solution Use as directed 15 mL in the mouth or throat 2 (two) times a day. 120 mL 025 Active omeprazole (PRILOSEC) 20 MG capsule TAKE 1 CAPSULE BY MOUTH EVERY DAY 90 capsule 3 Active omeprazole (PRILOSEC) 20 MG capsule Take 1 capsule by mouth every morning. 024 2024 Discontinued ergocalciferol (DRISDOL) 50,000 unit capsuleIndicati ons:Vitamin D deficiency 1 capsule by mouth every other week 12 capsule 3 025 2024 Discontinued cholestyramine (QUESTRAN) 4 gram packet TAKE 1 PACKET BY MOUTH 2 TIMES A DAY WITH MEALS. 180 packet 2024 Discontinued(N o longer taking) oxymetazoline (AFRIN) 0.05 % nasal spray 2 sprays by Nasal route 2 (two) times a day. 30 mL 2024 Discontinued oxymetazoline (AFRIN) 0.05 % nasal spray 2 sprays by Nasal route 2 (two) times a day. 30 mL 025 2024 Discontinued(R eorder) amoxicillin-cla vulanate (AUGMENTIN) 875-125 mg per tablet Take 1 tablet (875 mg of amoxicillin total) by mouth 2 (two) times a day for 7 days. 14 tablet 2024 Hospital, Clinic, or Other Facility Administered Medication Ordered Dose Route Frequency Start Date End Date Status cyanocobalamin (VITAMIN B-12) 1,000 mcg/mL injection 1,000 mcgIndications:B12 deficiency 1000 mcg IM Every 30 days 02/01/2025 01/27/2026 Active Active Problems Patient Care Coordination No te Formatting of this note migh t be different from the original. 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 No overt cardiac complaints/concerns. Has cardiac clearance appointment scheduled 02/07/25 Chronic gout without tophus 12/25/2024 Assessment & Plan (12/25/2024 12:34 PM EDT): Will check uric acid to ensure normal. Advised only caution with Amoxicillin and Allopurinol is to monitor for a rash. Patient did reach out to rheumatology for guidance as well S/P tooth extraction 12/25/2024 Assessment & Plan (12/25/2024 12:37 PM EDT): On Amoxicillin. Advised to monitor for a rash but should be ok with Allopurinol. Examined area as patient felt things dripping but no signs of abscess/infection. Continue with antibiotics as prescribed. Has follow-up with dentist next week but advised to follow-up sooner if symptoms do not improve and/or any new/worsening symptoms Subacute cough 11/16/2024 Assessment & Plan (11/16/2024 5:08 PM EDT): X one month. No overt associated symptoms. VSS/lungs clear. Will check x-ray. May be more allergies, can use levoalbuterol, reviewed instructions, and encourage to start daily anti-histamine. Takes a PPI for GERD already. Has follow-up 12/2024, aware to follow-up sooner if no improvement and/or worsening symptoms Pre-op evaluation 08/18/2024 Assessment & Plan (02/01/2025 12:02 PM EDT): Based on this exam, patient is average risk for this average risk surgical procedure. No apparent contraindications for surgery. Will require cardiac clearance and scheduled 02/07/25. Will need to stop Aspirin 5-7 days prior to procedure and will be given ok to do so by cardiology. Routine labs ordered today Assessment & Plan (08/18/2024 11:59 AM EDT): Based on this exam, patient is average risk for this low risk surgical procedure. No apparent contraindications. According to AHA/ACC cardiovascular risk, no further cardiac testing for surgical clearance. Due to low risk for bleeding, can continue all medications as prescribed, encourage to also confirm with optho regarding Aspirin/NSAIDs IBS (irritable bowel syndrome) 07/24/2024 Overview (08/18/2024): diarrhea calprotectin neg Assessment & Plan (12/25/2024 12:35 PM EDT): Has an appointment with [facility] 02/2025. Does feel Mercedes has helped History of total right knee replacement 07/19/19 25 Assessment & Plan (09/15/2024 8:27 PM EDT): Doing well. Is going to restart PT. Has follow-up with ortho next week Assessment & Plan (07/19/2024 9:34 AM EST): Doing well, working with PT 2 x a week. Admits to not being as diligent with home exercises but will continue to work on incorporating into routine Hypokalemia 07/19/2024 Assessment & Plan (07/19/2024 9:35 AM EST): Potassium 3.2 on recent labs, likely related to diarrhea. Ensure hydration, increase oral potassium with even banana daily. Has follow-up 08/2024, will repeat potassium at that time Claustrophobia 05/29/2024 Assessment & Plan (05/29/2024 3:40 PM EST): Related to upcoming MRI, requesting Ativan to use as needed prior to MRI. Take 30 minutes prior to appointment, no driving/ETOH use Encounter for screening mamm ogram for malignant neoplasm of breast 04/13/2024 Assessment & Plan (04/13/2024 2:28 PM EST): Due for routine screening. Prefers to do at [facility]. Order entered and will fax to [facility] for scheduling. Advised to notify office if does not hear regarding appointment GAN (dyspnea on exertion) 01/12/2024 Medicare annual wellness visit, subsequent 10/24 Assessment & Plan (10/25/2023 3:34 PM EDT): HRA form reviewed. Preventive care reviewed. Immunizations reviewed. [facility]OLST/HCP on file. UTD with optho/dentist. Plan for six month HTN follow-up, aware to follow- up sooner if needed Metatarsalgia of both feet 10/19/2023 Assessment & Plan (10/19/2023 4:00 PM EDT): Clinical picture not concerning for acute gout; podiatry records previously reviewed. I suspect some of her toe pain is secondary to significant bl pedal edema and have encouraged her to f/u with PCP regarding w/u and mgmt of this problem. Trial topical diclofenac as needed. Primary osteoarthritis of fi rst carpometacarpal joint of right hand 10/19/2023 Overview (01/06/2024): No change in sxs with dc of APAP Assessment & Plan (05/02/2024 12:11 PM EST): No benefit following 01/2024 intra-articular steroid injection. No further rheum-specific interventions available. Assessment & Plan (01/06/2024 2:37 PM EDT): Worse x2 wks; limited ability to use left hand due to tremor. Intra-articular steroid injection today as detailed in procedure note. She is amenable to OT referral for re-evaluation of previously rx'd splint. Continue topical diclofenac as needed. Assessment & Plan (10/19/2023 4:01 PM EDT): Discussed but deferred intra-articular steroid injection according to patient preference; will re-visit tx options on f/u History of left knee replacement 07/22/2023 Assessment & Plan (07/22/2023 7:09 PM EST): Done approximately one month ago and patient recovering well. Is attending outpatient PT. Using a walker for ambulation. Plan for PT for eight weeks. Has follow-up with ortho next week. Site CDI, steri strips intact and no signs/symptoms of infection. Does feel fatigued post surgery, advised can take some time for body to rebuild up strength. Ensure adequate hydration/protein intake. Plan for CPE in three months, aware to follow-up sooner as needed Upper back pain on left side 07/22/2023 Assessment & Plan (07/22/2023 7:11 PM EST): Worse with palpation and able to recreate pain with adduction of left arm. No rashes/skin changes. May be related to PT exercises as using bands/bending over. Has PT tomorrow, will discuss with them to ensure she is doing exercises properly and/or other tips to avoid aggravating pain Breast pain, left 06/04/2023 Assessment & Plan (10/25/2023 3:33 PM EDT): Has since resolved with Aspirin 81 mg x 2 Assessment & Plan (06/04/2023 5:46 PM EST): Reports having multiple extensive cardiac work-ups with no clear etiology. Pain is not acute, ongoing intermittently x 3 years. Normal EKG/stress test therefore per cardiology cardiac cath not indicated. Tender to touch, question of more inflammation/muscle. Encourage use of moist heat. Will also check diagnostic mammogram/US to rule out underlying causes. Advised will connect with cardiology office to request records as well for her chart. Advised in the interim for any new/worsening symptoms to seek emergency help Mild cognitive impairment 04/14/2023 Assessment & Plan (04/14/2023 11:55 AM EST): Follows with [facility] for tremors- recommended Primidone but patient has not taken. Does not feel mentation was being addressed and has concerns of some underlying forgetfulness. Discussed option of referral to neuropsych for formal testing, agreeable. Referral and phone # provided for patient Hyperuricemia 03/25/2023 Overview (03/25/2023): No crystal gout dx Assessment & Plan (05/02/2024 12:15 PM EST): Most recent serum uric acid at goal; will update with next routine labs for trend. Patient would like trial off allopurinol. If serum uric acid remains at goal and she has no acute gout attacks with trial off colchicine, can slowly taper allopurinol with regular serum uric acid monitoring. Resume allopurinol if serum uric acid climbs to 10.0 or greater. Discussed that stopping / starting allopurinol may trigger acute gout and I have advised she contact me for guidance if she is rx'd any medication with potential allopurinol interaction. Assessment & Plan (10/25/2023 3:30 PM EDT): Following/managed by rheumatology Assessment & Plan (10/19/2023 3:59 PM EDT): Repeat serum uric acid today for trend; will adjust allopurinol dose if needed to maintain serum uric acid <6.0 mg/dL. Colchicine ppx to prevent allopurinol- induced urate mobilization flare. Assessment & Plan (04/14/2023 11:51 AM EST): Started on Allopurinol by rheumatology, has not yet started but patient agreeable. Encourage to follow-up if any redness/swelling/warmth of joints occur, will call rheumatology for joint aspiration to confirm diagnosis Assessment & Plan (03/25/2023 1:03 PM EDT): Start empiric urate lowering therapy given concern for recurrence of podagra, beronica with upcoming left TKA and concern for post-op gout. Allopurinol 50 mg daily x3 wks, then increase to 100 mg daily; repeat serum uric acid to guide further dose increase at the 4-6 wk ashley. Patient will call for urgent re-evaluation and ideally diagnostic arthrocentesis if she has any recurrence of acutely swollen joint(s). Decreased serum uric acid may ultimately allow her to resume HCTZ w/o concern for precipitating gout attack. Elevated C-reactive protein (CRP) 03/25/2023 Assessment & Plan (03/25/2023 12:56 PM EDT): Mild CRP elevations not specific and of questionable utility given entire clinical picture; would not repeat unless there is clinical concern for inflammatory arthritis or recurrence of possible large vessel vasculitis. Urinary frequency 03/04/2023 Assessment & Plan (05/29/2024 3:39 PM EST): X past few months. Urine done recently and negative. Discussed options of bladder training/Kegel, education printed/provided for patient today. Discussed option of seeing uroGYN which patient is agreeable and prefers not to do anything until after knee surgery/recovery. Referral entered and phone # provided for patient. Aware to follow-up as needed Assessment & Plan (03/10/2023 2:47 PM EDT): Has improved/resolved Assessment & Plan (03/04/2023 8:21 PM EDT): Checking A1C today to ensure normal Neck pain 12/09/2022 Assessment & Plan (12/23/2022 3:48 PM EDT): Present x 2-3 weeks. No red flag symptoms on exam. CT ordered but unfortunately denied by insurance. Discussed next steps, advised can try and do [id number] but not guaranteed it will be approved and next steps after CT would be seeing orthopedic/spine specialists. Prefers to try and avoid surgery if that was an option. Will start PT next week, discussed option of referral to [facility], agreeable. Feels more muscle relaxer may help, refill provided but advised to use at bedtime, no driving/ETOH use. Continue with heat/Tylenol. Aware to follow-up if no improvement and/or worsening symptoms develop, expresses understanding Assessment & Plan (12/09/2022 7:57 PM EDT): Present x one week. Tried Flexeril with no improvement. Had rx for Tramadol and used 1-2 with no improvement. Has been using Tylenol arthritis/heat. No red flag symptoms. Encourage to use extra strength Tylenol two tablets every six hours, moist heat, topical Biofreeze/lidocaine patches, light ROM exercises. Aware to follow-up if no improvement and/or worsening symptoms, expresses understanding IFG (impaired fasting glucose) 06/15/2022 Assessment & Plan (06/15/2022 1:17 AM EST): Recommend regular physical activity, balanced diet Leg cramps 06/15/2022 Assessment & Plan (03/10/2023 2:47 PM EDT): *see plan per low magnesium Assessment & Plan (06/15/2022 1:14 AM EST): Check electrolytes, magnesium Localized swelling of both lower extremities 02/2023 Assessment & Plan (04/14/2023 11:54 AM EST): Has slightly worsened since stopping HCTZ, will restart at 12. 5 mg daily (see plan her HTN) Assessment & Plan (06/15/2022 1:16 AM EST): Recommend trial of compression. No pitting. Some improvement since stopping prednisone. Will monitor. Carotid stenosis, right 09/17/2021 Hypomagnesemia 09/02/2020 Assessment & Plan (03/10/2023 2:46 PM EDT): Leg cramps may be related to low magnesium. Encourage to take supplement daily, adequate hydration with 64 oz daily. Can repeat magnesium level at follow-up visit in 4-6 weeks Assessment & Plan (03/04/2023 8:21 PM EDT): Reviewed recent lab results with patient. Will restart taking supplements due to slightly low magnesium Anemia 05/29/2020 Overview (05/29/2020): Check CBC Q3 months Hgb <10 needs consider BM Assessment & Plan (12/25/2024 12:33 PM EDT): On recent labs. Will repeat CBC and check iron studies to ensure normal. Denies any abnormal bleeding. Reports has been told low blood counts in the past and was seen by hematology x one year B12 deficiency 05/29/2020 Assessment & Plan (02/01/2025 12:03 PM EDT): B12 given today, gets injection monthly Assessment & Plan (12/25/2024 12:34 PM EDT): Injection due/administered today Assessment & Plan (09/15/2024 8:28 PM EDT): B12 injection done today by nurse Assessment & Plan (04/13/2024 2:26 PM EST): B12 injection administered today Assessment & Plan (07/22/2023 7:07 PM EST): Due for B12 injection, given today Assessment & Plan (12/09/2022 7:53 PM EDT): Gets B12 injections monthly, next due 12/23/22 Degeneration of intervertebral disc 05/29/2020 Familial tremor 05/29/2020 Assessment & Plan (12/25/2024 12:35 PM EDT): Will resend referral to [facility] with notes provided from various other neurologists Assessment & Plan (11/16/2024 5:08 PM EDT): Referral entered to [facility] per patient request Assessment & Plan (09/15/2024 8:26 PM EDT): Follows/managed through [facility] Assessment & Plan (04/13/2024 2:27 PM EST): Was following with neurology at [facility]. Is going to reconnect with provider in [place], will notify office if referral is needed Assessment & Plan (10/25/2023 3:32 PM EDT): Following with [facility]. Has tried multiple medications but unable to tolerate. Could consider OT referral in the future for weighted cup/silverware, will follow-up if decides to proceed in the future Assessment & Plan (12/09/2022 7:54 PM EDT): Follows with neurology every six months Fatigue 05/29/2020 Assessment & Plan (04/14/2023 11:54 AM EST): Does report history of BETTY. Had tried CPAP/dental device and unable to tolerate. Reports most recently in past 10 years having an overnight oximetry test that was normal. Discussed option of discussing with cardiology as they may be be able to get her in with sleep medicine through [facility] for evaluation. Encourage to notify anesthesiologist prior to surgical procedure as well, expresses understanding GERD without esophagitis 05/29/2020 Hiatal hernia 05/29/2020 Diarrhea 05/29/2020 Overview (05/29/2020): diarrhea calprotectin neg Assessment & Plan (11/16/2024 5:08 PM EDT): Referral entered to [facility] per patient request Assessment & Plan (09/15/2024 8:27 PM EDT): Ongoing x many months. Had been following with [facility]. Normal colonoscopy and biopsies. Encourage stop Magnesium to see if improvement in diarrhea. Has an appointment with [facility] 09/20/24 Assessment & Plan (07/19/2024 9:32 AM EST): Testing negative. Notes improvement in symptoms, less frequency. No associated symptoms. Continue with BRAT diet/hydration. Has appointment with GI 09/2024 and recheck in office 08/2024. Advised to follow-up sooner for any new/worsening symptoms Assessment & Plan (07/14/2024 4:16 PM EST): Hx suggestive of cdiff. Will test and initiate treatment with vancocin. If testing negative will d/c vancocin and look for input from pt's GI Dr Adam. Assessment & Plan (04/13/2024 2:29 PM EST): Chronic. Has appointment for colonoscopy 04/24/[address] Adam Assessment & Plan (03/15/2024 12:57 PM EDT): Since taking Paxlovid, has not improved. Using Imodium which does help some. Unsure if underlying cause, does report history of IBS. Interested in stool studies to ensure no infection, does have a history of cdiff. Orders entered and will follow-up with results. Encourage hydration/BRAT diet and Imodium as needed Assessment & Plan (10/25/2023 3:32 PM EDT): Has been well managed Assessment & Plan (03/10/2023 2:47 PM EDT): On Questran with some improvement but unsure if causing nausea. Is following with GI in [place], [place]. Initially wanted [place] for 2nd opinion but doesn't have appointment until 01/2024. Is interested in seeing [facility] as she has seen them in the past, is going to call their office today, advised to follow-up if referral is needed Assessment & Plan (03/04/2023 8:27 PM EDT): Was recently started on Questran by GI and unsure if causing nausea/upset stomach. Has helped with diarrhea. Encourage to try taking at night to see if improvement Assessment & Plan (12/09/2022 7:55 PM EDT): Has seen multiple GI and no clear cause/treatment. Is interested in establishing with GI provider in [place], referral provided. Unsure if she should continue with colonoscopy screening d/t recent mass/diagnosis of colon CA in [place] in her 90's, advised to discuss with GI regarding screening, has upcoming appt with her current provider in [place] Essential hypertension 05/29/2020 Assessment & Plan (02/01/2025 11:58 AM EDT): BP at goal, continue medications as prescribed. Advised to not take HCTZ morning of procedure due to diuretic but patient will also confirm with cardiology Assessment & Plan (12/25/2024 12:33 PM EDT): Repeat BP improved/at goal Assessment & Plan (11/16/2024 5:07 PM EDT): BP at goal, continue medications as prescribed Assessment & Plan (09/15/2024 8:25 PM EDT): BP at goal. Prefers to stay on HCTZ as BP is well managed and no recent gout flares. Continue with medications as prescribed Assessment & Plan (07/19/2024 9:33 AM EST): BP has improved, home BP reading at goal prior to visit today Assessment & Plan (04/13/2024 2:25 PM EST): BP at goal today. Continue with medications as prescribed. Labs done 12/2023. Can intermittently monitor at home and follow-up if readings are consistently above goal of <130/80 Assessment & Plan (10/25/2023 3:29 PM EDT): Repeat BP improved/at goal. Continue medications as prescribed. Hoping to get back into exercise/DASH diet. CMP recently done with rheumatology and results normal/baseline Assessment & Plan (07/22/2023 7:07 PM EST): BP at goal, doing well on current regimen. Labs done 02/2023. Also follows with [facility] for regular management Assessment & Plan (04/14/2023 11:50 AM EST): BP has been well controlled on Lisinopril. Stopped HCTZ due to concern for gout but feels it was related to a higher dose. Is interested in re-starting HCTZ in combination with Lisinopril at low dose of 12.5 mg daily. Labs done 02/2023- normal renal function. Will have patient re-start and encourage to monitor BP at home. Has follow-up visit with cardiology in 2-3 weeks. Keep legs elevated whenever able. Plan for three month follow-up, aware to follow-up sooner if needed Assessment & Plan (03/10/2023 2:45 PM EDT): Feels HCTZ caused gout as she had never had previously. Will stop HCTZ and change to Lisinopril. 10 mg tablets provided but advised to start at 5 mg and monitor BP daily, if notice elevated will increase to 10 mg. Labs done 02/2023- normal renal function. Will need to monitor legs closely for leg swelling as patient has had in the past, expresses understanding. Reviewed side effects/risks/benefits of Lisinopril. Will plan for follow-up visit in 4-6 weeks, aware to follow-up sooner if needed Assessment & Plan (03/04/2023 8:18 PM EDT): BP at goal with taking HCTZ 25 mg daily but now with episodes of gout. Reports taking Lisinopril in the past. Is going away for the weekend and has follow-up visit scheduled Wednesday03/10/23. Will have patient continue HCTZ 12.5 mg daily until follow-up visit next week and then at follow-up visit can discuss changing HCTZ to Lisinopril. Assessment & Plan (12/09/2022 8:00 PM EDT): Recent ED visit and HCTZ increase to 25 mg daily due to persistently elevated BP. Took 25 mg this am and BP at goal today. Discussed option of keeping HCTZ at 25 mg (previously on 12.5) as this may help with leg swelling as well. Is concerned for her renal function, history of CKD but recent GFR normal. Advised will keep HCTZ at 25 mg, monitor BP at home and keep log, reviewed symptoms of low BP. Will check labs in one month to ensure renal function stable. Emphasize DASH diet/regular exercise. Plan for three month follow-up, aware to follow-up sooner if needed Assessment & Plan (06/15/2022 1:14 AM EST): Stable on current medication regimen. Assessment & Plan (05/29/2020 1:37 PM EST): Well-managed BETTY (obstructive sleep apnea) 05/29/2020 Assessment & Plan (02/01/2025 12:00 PM EDT): Attempted CPAP but unable to tolerate. Is following with sleep medicine Assessment & Plan (12/25/2024 12:33 PM EDT): Not using CPAP. Has follow-up with sleep 02/2025, advised to discuss other options for mask as using CPAP would likely help with some of her current symptoms Assessment & Plan (09/15/2024 8:26 PM EDT): Is not using CPAP, aware of benefit of using CPAP on overall health Osteoarthritis of both knees 05/29/2020 Overview (05/02/2024): s/p left TKA; planning to pursue right TKA Assessment & Plan (05/02/2024 12:09 PM EST): Revisited tx options including duloxetine (rx'd 03/2023 as detailed in HPI) and oral NSAIDs. Discussed risk benefit ratio of regular use of oral NSAIDs in context of historically NSAID-induced renal insufficiency. No current indication for ongoing rheum-specific mgmt. Assessment & Plan (04/13/2024 2:27 PM EST): Had knee replacement of left. Seeing ortho and consider replacement on right side but not 100% sure yet. Advised ok to use Advil sparingly/as needed. Renal function done 12/2023- normal. Will continue to monitor periodically to ensure stable Assessment & Plan (04/14/2023 11:56 AM EST): Scheduled for total left knee replacement 06/24/[address] [facility]. Advised to stop Aspirin one week prior to procedure, do not use Voltaren gel one week prior. No overt contraindications for surgery. Will send signed paperwork to surgeon's office. Is seeing cardiology for clearance and getting up to date with dentist. Is requesting home PT due to transportation issues initially, will make note in paperwork to surgeon. 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 LDL at goal Assessment & Plan (10/25/2023 3:30 PM EDT): Last fasting labs done 06/2022, ordered today and will follow-up with results. On statin therapy. Encourage healthy diet/regular exercise Assessment & Plan (12/09/2022 7:53 PM EDT): Last fasting labs done 06/2022, LDL at goal. Follows with Dr. Hale- cardiology every six months, next visit 04/2023. Emphasize benefit of healthy diet/regular exercise Polyarticular osteoarthritis 05/29/2020 Assessment & Plan (12/25/2024 12:35 PM EDT): Met with [facility]. Encourage to try increasing Celebrex to 200 mg daily. Recent GFR stable/normal Assessment & Plan (09/15/2024 8:29 PM EDT): Is not interested in trying Celebrex. Is using Tylenol/Ibuprofen, advised could try Tylenol Arthritis. Is going to follow-up with [facility] 09/26/24 Assessment & Plan (05/02/2024 12:11 PM EST): There remains no specific objective e/o underlying inflammatory arthritis and therefore no indication for ongoing rheum-specific mgmt. D/w patient that interventions including oral NSAIDs and duloxetine can be safely rx'd and monitored by PCP. Happy to re-evaluate if any clinical concern for evolving inflammatory arthritis. Assessment & Plan (03/25/2023 12:59 PM EDT): No specific historical, physical, serologic, or radiographic evidence of underlying or co-morbid inflammatory arthritis and therefore no current indication for ongoing rheum-specific mgmt. Patient amenable to trial low dose duloxetine 20 mg nightly; will increase to 40 mg daily after 2 wks if tolerated. Common medication AEs reviewed; if duloxetine is effective and tolerated I will ask that her PCP take over future refills of this non rheum-specific medication. Obese 03/21/2020 Assessment & Plan (10/23/2020 11:45 AM EDT): The patient was not able to get Contrave because it was not covered by her insurance. She is willing to pay [id number]. I resent the prescription and again and gave her 2 refills. Assuming she gets the medication she can see me again in 3 months time. Assessment & Plan (04/04/2020 9:29 AM EDT): Unfortunately Saxenda was denied. She is also having doubts [...] medication and I informed her of this. Assessment & Plan (03/21/2020 11:16 AM EDT): So this is a patient with obesity who has multiple comorbid conditions. She is not able to exercise because she requires bilateral knee replacement and she also has back pain. Pain medications are limited because she has renal insufficiency and requires opioids and other medications that can potentially make her hyperglycemia worse. So we are limited in terms of what medication we can prescribe for obesity such as Qsymia which can cause serotonin syndrome with SSRIs and furthermore she could not tolerate topiramate in the past although she had good benefits in terms of weight loss. We would not want to prescribe Contrave because she has been prescribed opioids for pain and Contrave has naltrexone which is a contraindication. Although the patient tells me that she has tried Wellbutrin in the past and she did well with it. She has no history of pancreatitis or medullary thyroid carcinoma and I think a GLP-1 agonist will be best such as Saxenda. So I am going to go ahead and prescribe this medication and see if it is covered by the insurance because it is really the only one that she can use. Can I did explain that this medication is associated with nausea vomiting, diarrhea, constipation. Everybody experience a little bit of nausea at the beginning but we stop with the smallest doses. If she starts vomiting having diarrhea she is probably negative be able to tolerate the medication which will be unfortunate. However the only way we would know if she can tolerate it is to try the medication. Based on the electrolytes I do not think that the patient is cushingoid and if she were we would not be giving her steroids. If anything she could develop a cushingoid appearance and adrenal insufficiency in the long run with continued steroid use which again will be very unfortunate as well. I also mentioned before that I do not know if she has been monitored for hypothyroidism so I will check TSH with reflex free T4. No other condition that can result in weight gain is polycystic ovarian syndrome but the patient does not have any history of PCOS she had menarche at the age of 13 and had regular menstruation thereafter. Prediabetes 03/21/2020 Assessment & Plan (02/01/2025 12:00 PM EDT): Most recent A1C 12/2024- at goal Assessment & Plan (12/25/2024 12:34 PM EDT): Due for repeat A1C, ordered today and will follow-up with results Assessment & Plan (09/15/2024 8:28 PM EDT): Last A1C 05/2024 at goal. Focus on healthy diet/regular exercise Assessment & Plan (04/13/2024 2:26 PM EST): Last A1C 10/2023, ordered and patient will complete 05/2024. Encourage healthy diet/regular exercise Assessment & Plan (10/25/2023 3:31 PM EDT): Last A1C 02/2023, ordered today and will follow-up with results Assessment & Plan (03/10/2023 2:46 PM EDT): Recent A1C normal Assessment & Plan (03/04/2023 8:19 PM EDT): Reports urinary frequency and concerned for blood sugar. Will check A1C to ensure normal and follow-up with patient with results Assessment & Plan (12/09/2022 7:52 PM EDT): Last A1C 06/2022- 5.6% Assessment & Plan (04/04/2020 9:28 AM EDT): Continue to monitor diet and I guess exercise as tolerated. If she wants Metformin in the future we can prescribe this. Assessment & Plan (03/21/2020 11:10 AM EDT): This is a patient who has prediabetes based on hemoglobin A1c of 5.9% but she is anemic and the hemoglobin A1c is not accurate she really needs to do a glucose tolerance test in order to diagnose for diabetes mellitus. This is a test where she goes in fasting for blood test and she must drink a glucose drink of 75 g of glucose and wait around for 2 hours without eating to repeat the glucose level. If the fasting glucose is 126 mg or greater-consistent with diabetes and if the glucose tolerance 2 hours later is 200 mg or greater that is consistent with diabetes. If we diagnose her with diabetes he will be a lot easier to prescribe GLP-1 agonist for this condition which will help with weight loss. Stage 3 chronic kidney disease 01/11/2020 Assessment & Plan (02/01/2025 12:01 PM EDT): BMP ordered today to ensure stable/baseline Assessment & Plan (04/13/2024 2:27 PM EST): CMP done 12/2023 normal renal function Assessment & Plan (10/25/2023 3:32 PM EDT): Recent labs with normal renal function Assessment & Plan (03/25/2023 12:56 PM EDT): Improved per most recent labs; reasonable to continue avoidance of oral NSAIDs to the extent possible. Assessment & Plan (06/15/2022 1:16 AM EST): Stable. Will be mindful of adjusting medications History of polymyalgia rheumatica 10/06/2019 Overview (03/25/2023): ESR max 37 (12/2021); prednisone poorly tolerated and taper completed c. 2021 Assessment & Plan (03/25/2023 12:55 PM EDT): Clinical picture, beronica patient-reported absence of symptomatic benefit with prednisone, is not c/w PMR. She has no current evidence concerning for PMR, GCA, or inflammatory arthritis. No current indication to trend inflammatory markers. Assessment & Plan (12/09/2022 7:54 PM EDT): Unsure if accurate diagnosis. Had been on high dose steroids but since stopped by previous applied technologist. Likely arthritis, has NPT with local rheumatology 03/2023 Macular degeneration Resolved Problems Problem Noted Date Diagnosed Date Resolved Date COVID-19 03/15/2024 09/15/2024 Assessment & Plan (03/15/2024 11:44 AM EDT): Tested positive two weeks ago. CXR done 03/07/24- normal. Will repeat due to persistent symptoms/scant blood in sputum. Lungs CTA, O2 sat normal/no fevers. Will give cough medicine with codeine to use as needed. Advised no driving/ETOH use while taking this medication. Encourage use of humidifier and/or sitting in the bathroom with the steam. Ensure adequate hydration. Can continue to use OTC Mucinex as needed. Advised to follow-up for any new/worsening symptoms including fevers/worsening cough/SOB and/or if no improvement On colchicine therapy 10/19/20232024 Assessment & Plan (05/02/2024 12:12 PM EST): Updated labs; recommend trial off colchicine if serum uric acid remains at goal, as colchicine is more likely than allopurinol to exacerbate diarrhea Assessment & Plan (10/19/2023 4:01 PM EDT): No symptomatic AEs to daily colchicine; routine monitoring labs today (+ statin) Strain of left inguinal region 09/16/2023 12/25/2024 Assessment & Plan (10/25/2023 3:33 PM EDT): Likely hip adductor muscle. PT requesting imaging prior to continuing, will check x-ray of pelvis. Does feel better over past few days. Encourage to continue with compression and slowly get back into exercise routine, continue with PT and avoid recumbent bike for period of time until 100% healed Assessment & Plan (09/16/2023 2:56 PM EDT): Likely related to bike use. No overt abnormalities on exam. Encourage moist heat to area 2-3 x a day for 10-15 minutes, Tylenol as needed. Call with update next week if not improving. Once feeling better, can get back to riding bike but encourage to limit to 10-15 minutes at a time and can divide up during the day and use a pillow on the seat. Aware to follow-up sooner for any new/worsening symptoms History of polymyalgia rheumatica 03/25/2023 04/14/2023 Sicca syndrome 03/25/2023 03/15/2024 Assessment & Plan (03/25/2023 12:55 PM EDT): Baseline SSA/SSB with next routine labs Sore throat 03/04/2023 04/14/2023 Assessment & Plan (03/04/2023 8:24 PM EDT): Started this morning with mild symptoms. No fevers/cough/congestion. Will do covid PCR test and follow-up with patient with results. May be allergy related. Can see how patient is feeling at follow-up visit 03/10/23. 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 Will discontinue HCTZ to see if resolution Assessment & Plan (03/04/2023 8:22 PM EDT): Likely related to HCTZ. Will discuss changing HCTZ to Lisinopril at follow-up visit next week. Uric acid done recently and improved from previous, ESR normal. Has colchicine to use as needed Burning with urination 12/09/202204/14 Assessment & Plan (12/09/2022 7:56 PM EDT): At the end of stream, occurs intermittently. No blood/fevers. Likely related to external irritation/vaginal dryness, will check urine to ensure no infection. Prefers to check urine with labs in one month. Ensure adequate hydration, aware to follow-up if any new/worsening symptoms develop Carotid artery disease 05/29/202002/01 Overview (06/09/2020): US carotids 10/2017: LEON 50-79%, LICA <50% 09/2018 US: No appreciable atherosclerotic plaque in the carotid arteries. Repeated 09/2018 without significant change. Assessment & Plan (02/01/2025 11:58 AM EDT): Follow[facility] with [facility] Card[facility]. Is scheduled for cardiac clearance evaluation 02/07/25 Assessment & Plan (06/15/2022 1:13 AM EST): Await CTA for further assessment Depression 05/29/2020 12/09/2022 Impaired glucose tolerance 05/29/2020 0 09/17/2021 Encounters Date Type Department Care Team Description 03/16/2025 Episode Changes [facility] [address] [place] [id number] Key Christensen 03/14/2025 11:00 AM EDT Office Visit [facility] [address] [place] [phone] Peter Melgoza MD Acute abscess of maxillary sinus (Primary Dx) 03/13/2025 Telephone [facility] [address] [place] [address] Savannah Dowell Records requested from [facility] 03/09/2025 Telephone [facility] [address] [place] [phone] Vera Telles MA Postoperative Question 03/07/2025 Refill [facility] [address] [place] [address] Paul Gottlieb CNP Medication Refill 03/06/2025 10:50 AM EDT Anesthesia Event [facility] DEPT [address] [place] [id number] Rafy Cosby MD Xu, Rui, [employer] 03/06/2025 9:45 AM EDT - 03/06/2025 12:45 PM EDT Surgery [facility]PT [address] [place] [address] Peter Melgoza MD CALDWELL LUC WITH POLYP REMOVAL 03/06/2025 8:04 AM EDT - 03/07/2025 9:45 AM EDT Hospital Encounter [facility] [address] [place] [id number] Peter Melgoza MD Discharge Disposition: Home or Self Care 03/06/2025 Procedure Pass [facility] [address] [place] [id number] 03/05/2025 10:00 AM EDT [facility] [address] [place] [id number] Nereyda Barnes MD Suprapubic pain (Primary Dx) 03/05/2025 Telephone [facility] [address] [facility] [address] [place] [phone] Adelfo Contreras Appointment 03/01/2025 11:30 AM EDT Nurse Only [facility] [address] [place] [address] Paul Gottlieb CNP B12 deficiency (Primary Dx) 02/20/2025 2:00 PM EDT Pre-Admission Testing [facility] Pre Procedure Evaluation [facility] [address] [place] [id number] Peter Melgoza MD 02/20/2025 10:30 AM EDT Office Visit [facility] [address] [place] [address] Jared Lee MD Chronic cough (Primary Dx); Vitamin D deficiency; BETTY (obstructive sleep apnea); GAN (dyspnea on exertion) 02/20/2025 Refill [facility] [address] [place] [address] Johanna Campo LPN Medication Refill 02/16/2025 9:28 AM EDT - 02/16/2025 11:59 PM EDT Hospital Encounter [facility] [address] [place] [address] Paul Gottlieb CNP Discharge Disposition: Home or Self Care 02/16/2025 Refill [facility]ology [address] [place] [address] [place] [address] Danette Denise MD, MPH Medication Refill 02/14/2025 11:30 AM EDT - 02/14/2025 11:59 PM EDT Hospital Encounter [facility] [address] [place] [address] [place] [address] Paul Gottlieb CNP Discharge Disposition: Home or Self Care 02/14/[address] [address] Teresa Rene Call back 02/08/2025 10:16 AM EDT - 02/08/2025 11:59 PM EDT Hospital Encounter [facility], X-Ray - [facility] [address] [place] [address] Jared Lee MD Discharge Disposition: Home or Self Care 02/08/2025 Telephone [facility] [address] [place] [address] Paul Gottlieb CNP 02/07/2025 12:00 PM EDT - 02/07/2025 11:59 PM EDT Hospital Encounter [facility] [address] [place] [address] [place] [address] Paul Gottlieb CNP Discharge Disposition: Home or Self Care 02/01/2025 10:30 AM EDT Office Visit [facility] [address] [place] [address] Paul Gottlieb CNP Pre-op evaluation (Primary Dx); B12 deficiency; BETTY (obstructive sleep apnea); Essential hypertension; Prediabetes; Atherosclerosis of lime coronary artery of lime heart without angina pectoris; Stage 3 chronic kidney disease, unspecified whether stage 3a or 3b CKD 01/26/2025 Telephone [facility] [address] [place] [address] Teresa Rene 01/24/2025 9:00 AM EDT Office Visit [facility] [address] [place] [phone] Peter Melgoza MD Other sinusitis, unspecified chronicity (Primary Dx) 01/24/2025 8:05 AM EDT - 01/24/2025 11:59 PM EDT Hospital Encounter [facility] - [facility] [address] [place] [address] Peter Melgoza MD Discharge Disposition: Home or Self Care 01/08/2025 Telephone [facility] [address] [place] [address] Jared Lee MD 01/05/2025 Refill [facility] [address] [place] [address] Mariella Dawn MD Medication Refill 01/04/2025 Procedure Pass [facility] [address] [place] [address] 01/04/2025 Transcribe Orders [facility] [address] [place] [phone] Vera Telles MA Chronic sinusitis (Primary Dx) 01/02/2025 11:45 AM EDT Office Visit [facility] [address] [place] [address] Jared Lee MD BETTY (obstructive sleep apnea); GAN (dyspnea on exertion) 01/02/2025 Telephone [facility] [address] [place] [address] Jared Lee MD Sleep Study (HST internal) 12/25/2024 11:47 AM EDT - 12/25/2024 11:59 PM EDT Hospital Encounter [facility] [address] [place] [address] Paul Gottlieb, DANNY Discharge Disposition: Home or Self Care 12/25/2024 11:00 AM EDT Office Visit [facility] [address] [place] [address] Paul Gottlieb, DANNY Anemia, unspecified type (Primary Dx); BETTY (obstructive sleep apnea); Familial tremor; Prediabetes; Vitamin B12 deficiency; Chronic gout without tophus, unspecified cause, unspecified site; Essential hypertension; Polyarticular osteoarthritis; Irritable bowel syndrome with diarrhea; S/P tooth extraction 12/19/2024 11:42 AM EDT - 12/19/2024 11:59 PM EDT Hospital Encounter [facility] [address] [place] [address] Paul Gottlieb, DANNY Discharge Disposition: Home or Self Care from Last 3 Months Immunizations Immunization Administration Dates Next Due COVID-19 (Pre-03/29) Kaur Vaccine, rS-Ad26, P F 08/08/2020 COVID-19 (Pre-03/29) Pfizer Vaccine, mRNA, PF INFLUENZA, SPLIT VIRUS, TRIVALENT PF 04/13/2024 INFLUENZA, SPLIT VIRUS, TRIVALENT W/ PRESERVATIV E IM 04/16/2012 Influenza High-Dose Trivalent Preservative Free IM 03/07/2018 Influenza Quadrivalent MDCK Preservative Free IM 03/06/2013 Influenza Quadrivalent Preservative Free IM 03/07,05/01/2022 Influenza Quadrivalent w/ Preservative IM 2015,04/26/2014 Influenza trivalent preservative free intraderma l 03/06/2013 Influenza, Unspecified Formulation 02/06/2024 Pneumococcal conjugate PCV13 08/15/2018 Pneumococcal polysaccharide PPSV23 11/08/2019, RSV Vaccine (monovalent, adjuvanted) 05/25/2023 Td (adult),2 Lf Tetanus Toxoid, PF, Adsorbed Tdap 11/15/2014,06/07/2011 Zoster live 01/08/2016 Zoster recombinant 08/02/2019 Family History Medical History Relation Comments Coronary artery disease Brother 1 Heart attack Brother 1 Coronary artery disease Brother 2 Heart attack Father Macular degeneration Father Basal cell carcinoma Mother Hypertension Mother Macular degeneration Mother Osteoarthritis Mother Arthritis Sister Fibromyalgia Sister Relation Status Comments Brother 1 Alive Brother 2 Alive Brother 3 Alive Brother 4 Alive Father (Age 67) Mother Alive Sister Alive Social History Tobacco Use Types Packs/Day Years Used Date Smoking Tobacco: Never Smokeless Tobacco: Never Tobacco Cessation:Counseling Given: Not Answered Alcohol Use Standard Drinks/Week Comments Not Currently [...] AM EDT Sexual Orientation Not on file Last Filed Vital Signs Vital Sign Reading Time Taken Comments Blood Pressure 145/72 03/07/2025 4:30 AM EDT Pulse 68 03/07/2025 7:29 AM EDT Temperature 36.5 C (97.7 F) 03/07/2025 7:29 AM EDT Respiratory Rate 18 03/07/2025 7:29 AM EDT Oxygen Saturation 97% 03/07/2025 7:29 AM EDT Inhaled Oxygen Concentration - - Weight 104.3 kg (230 lb) 03/06/2025 8:31 AM EDT Height 162.6 cm (5' 4 ) 03/06/2025 8:31 AM EDT Body Mass Index 39.48 03/06/2025 8:31 AM EDT Plan of Treatment Upcoming Encounters Date Type Department Care Team (Late st Contact Info) Description 03/14/2025 Procedure Pass [facility] - [facility] [place] [address] [place] [address] 03/28/2025 11:00 AM EDT [facility] [address] [address] Paul Gottlieb, DANNY [address] [place] [address] 05/01/2025 9:30 AM EST Office Visit [facility] Critical [facility] Medicine [address] [facility] [place] [address] Jared Lee MD [address] [place] [id number] 06/22/2025 11:00 AM EST Appointment [facility] [address] [place] [address] Jodie Mcmahan MD [address] [place] [phone] [email or web address] 06/22/2025 11:40 AM EST Office Visit [facility] [address] [facility] [address] [place] [phone] Peter Melgoza MD [facility], [address] [place] [address] [email or web address] Health Maintenance Due Date Last Done Comments COLOGUARD 1997 FOBT 1997 VIRTUAL COLONOSCOPY 1997 ZOSTER VACCINES (3 of 3) 09/27/2019 08/02/2019, 08/08/2015 DEPRESSION SCREENING 10/24/2024 10/25/2023 INFLUENZA VACCINE (#1) 2025 , 02/06/2024, 03/25/2023, Additional history exists COVID-19 VACCINE ( season) 2025 04/30/2023, 04/01/2022, 04/22/2021, Additional history exists SIGMOIDOSCOPY 07/01/2025 07/01/2020 BLOOD PRESSURE 09/02/2025 03/05/2025 COLONOSCOPY 10/09/2025 10/10/2015 CREATININE LEVEL 02/07/2026 02/07/2025, , 07/14/2024, Additional history exists POTASSIUM LEVEL 02/14/2026 02/14/2025, 08/2024, 12/19/2024, Additional history exists COLORECTAL CANCER SCREENING 02/16/2026 FIT TEST 02/16/2026 02/16/2025 MAMMOGRAM 11/15/2026 11/15/2024, 12/2023, 07/16/2022, Additional history exists Adult Td,Tdap Booster 09/29/2033 09/30/2023 , 11/15/2014, 06/07/2011 HEPATITIS C SCREENING Completed 09/19/2018, 019 PNEUMOCOCCAL VACCINES (50+ years) Completed 11/08/2019, 08/15/2018, 05/07/2016 OSTEOPOROSIS SCREENING INITIAL (ONE-TIME) Completed 09/05/2020, 02/10/2019 RSV VACCINE Completed 05/25/2023 SMOKING STATUS SCREENING (Once After 26 Yrs) Completed 03/06/2025 HEPATITIS A VACCINES Aged Out No long er eligible based on patient's age to complete this topic HIB VACCINES Aged Out No longer eligi ble based on patient's age to complete this topic MENINGOCOCCAL VACCINES (ACWY) Aged Out No longer eligible based on patient's age to complete this topic MENINGOCOCCAL VACCINES (B) Aged Out N o longer eligible based on patient's age to complete this topic Medical Devices Not on file Procedures Procedure Name Priority Date/Time Associated Diagnosis Comments POCT GLUCOSE Routine 03/06/2025 2:35 PM EDT ANATOMIC PATHOLOGY Routine 03/06/2025 11:33 AM EDT TN EXPLOR MAXILL SINUS,RMV POLYPS 03/06/2025 11:09 AM EDT Chronic sinusitis Special Needs 2.5 hours needed AIRWAY PLACEMENT Routine 03/06/2025 11:05 AM EDT HC BLOOD OCCULT FECAL HGB DETER IA QUAL FECES 1-3 Routine 02/16/2025 4:00 PM EDT Anemia, unspecified type CBC AND DIFFERENTIAL Routine 02/14/2025 11:52 AM EDT Anemia, unspecified type IRON AND IRON BINDING CAPACITY Routine 02/14/2025 11:52 AM EDT Anemia, unspecified type FOLATE Routine 02/14/2025 11:52 AM EDT Anemia, unspecified type FERRITIN Routine 02/14/2025 11:52 AM EDT Anemia, unspecified type POTASSIUM Routine 02/14/2025 11:52 AM EDT Low blood potassium FL CHEST FLUOROSCOPY WITH 2 VIEW CHEST XR Routine 02/08/2025 10:46 AM EDT GAN (dyspnea on exertion) CBC Routine 02/07/2025 12:20 PM EDT Pre-op evaluation BASIC METABOLIC PANEL Routine 02/07/2025 12:20 PM EDT Pre-op evaluation CT FACE (SINUS) WITHOUT CONTRAST Routine 01/24/2025 8:11 AM EDT Chronic sinusitis IRON AND IRON BINDING CAPACITY Routine 12/25/2024 11:47 AM EDT Anemia, unspecified type CBC AND DIFFERENTIAL Routine 12/25/2024 11:47 AM EDT Anemia, unspecified type FERRITIN Routine 12/25/2024 11:47 AM EDT Anemia, unspecified type URIC ACID Routine 12/25/2024 11:47 AM EDT Chronic gout without tophus, unspecified cause, unspecified site HEMOGLOBIN A1C Routine 12/25/2024 11:47 AM EDT Prediabetes CBC Routine 12/19/2024 11:44 AM EDT Subacute cough Essential hypertension TSH WITH REFLEX Routine 12/19/2024 11:44 AM EDT Subacute cough Essential hypertension COMPREHENSIVE METABOLIC PANEL Routine 12/19/2024 11:44 AM EDT Subacute cough Essential hypertension HM MAMMOGRAPHY Routine 11/15/2024 10:20 AM EDT BD DXA AXIAL (SPINE) WITH HIP Routine 09/05/2020 1:58 PM EDT Primary osteoarthritis involving multiple joints OUTSIDE HEPATITIS C VIRUS SCREENING Routine 09/19/2018 from Last 3 Months or Most Recently Relevant to Health Maintenance Results * (ABNORMAL) POCT Glucose (03/06/2025 2:35 PM EDT) Glucose, POCT 141(H) 70 - 100 mg/dL [facility] 03/06/2025 2:35 PM EDT 03/06/2025 2:41 PM EDT us Peter Melgoza MD POINT OF CARE TEST ORDERABLES Final Result Performing Organization Address City/State/[facility] Co de Phone Number [facility] [address] [place] [address] * Anatomic Pathology (03/06/2025 11:33 AM EDT) 03/06/2025 11:3 3 AM EDT 03/06/2025 4:50 PM EDT Narrative SEE NARRATIVE - 03/13/2025 10:14 AM EDT [address], [place] [address] Surgical Pathology Report Patient Name: CHITRA LAFLEUR : 1950 (Age: 74) Sex: F Location: [facility] Institution: [facility] Date of Operation: 03/06/2025 Date of Reported: 03/13/2025 10:14 Results To: Peter Powell MD FINAL PATHOLOGIC DIAGNOSIS: A. NASAL AND SINUS CONTENTS, LEFT: Predominantly bone and scant chronic rhinosinusitis. Electronically Signed Out By Marcus Figueroa MD, PHD Resident Pathologist: Willis Zelaya MD By his/her signature above, the pathologist listed as making the Final Diagnosis certifies that he/she has personally reviewed the case and confirmed the diagnosis. All slides and stains were of sufficient quality to establish the diagnosis, unless otherwise stated. CLINICAL HISTORY Chronic sinusitis SPECIMENS SUBMITTED: A: NASAL AND SINUS CONTENTS, LEFT GROSS DESCRIPTION Received in formalin, labeled Chitra Lafleur and ) & nasal and sinus contents, left is an aggregate of krishnamurthy soft tissue admixed with cartilaginous fragments measuring 1.3 x 1.2 x 0.2 cm. Specimen is filtered.. Entirely in A1 following decalcification. Grossed by: Kailey Coats us Peter Melgoza MD PATHOLOGY ORDERABLES Final Res ult SEE NARRATIVE * ANES ETT DOUBLE LUMEN - AIRWAY LDA (03/06/2025 11:05 AM EDT) Narrative Rafy Cosby MD - 03/06/2025 11:05 AM EDT Rafy Cosby MD 03/06/2025 11:32 AM Airway Placement Procedure Note: Patient was not difficult to intubate. Procedure performed by: anesthesiologist Anesthesiologist: Rafy Cosby MD Airway procedure initiated at:03/06/2025 11:05 AM and ended at 03/06/2025 11:05 AM. Personal Protective Equipment: Mask: surgical mask Gloves: gloves Mask Ventilation: Quality: easy Airway Placement: Technique: direct laryngoscopy Rapid sequence induction: no Details: Blade type: Mac Blade size: 3 Direct view: grade 1 Airway manipulation: cricoid pressure Number of attempts: 1 ETT type: cuffed ETT size: 7.0 ETT depth at teeth: 22 ETT cuff inflation volume: 8 Tube position confirmed by: bilateral breath sounds and EtCO2 Outcomes: Evidence of dental injury? no Complications observed? no Rafy Cosby MD [place] ANESTHESIA Final Result * (ABNORMAL) Fecal immunochemical test x1 (FIT) (02/16/2025 4:00 PM EDT) Immuno Fecal Occult Positive(A ) Negative [facility] Stool (Stool) 02/16/2025 4:0 0 PM EDT 02/17/2025 9:32 AM EDT Paul Gottlieb [employer] BODY FLUIDS AND STOOLS ORD ERABLES Final Result Performing Organization Address [facility]/ZIP Co de Phone Number [address] [address] * Iron and iron binding capacity (02/14/2025 11:52 AM EDT) Only the most recent of2 resultswithin the time period is included. IRON 53 30 - 160 ug/dL [facility] IRON BINDING CAPACITY 299 228 - 428 ug/dL [facility] TRANSFERRIN SATURAT. 18 15 - 50 % [facility] Blood 02/14/2025 11:5 2 AM EDT 02/14/2025 11:54 AM EDT Paul Gottlieb [employer] [facility] [facility] LAB BLOOD ORDERABLES Final Result Performing Organization Address [facility] Co de Phone Number [address] [address] * (ABNORMAL) CBC and differential (02/14/2025 11:52 AM EDT) Only the most recent of2 resultswithin the time period is included. WBC 6.34 4.00 - 11.00 K/uL [facility] RBC 4.04 4.00 - 5.20 M/uL [facility] HGB 11.0(L) 12.0 - 16.0 g/dL [facility] HCT 34.9(L) 36.0 - 46.0 % [facility] PLT 245 150 - 450 K/uL [facility] MCV 86.4 80.0 - 100.0 fL [facility] MCH 27.2 27.0 - 31.0 pg [facility] MCHC 31.5(L) 32.0 - 36.0 g/dL [facility] RDW 16.0(H) 11.5 - 14.5 % [facility] MPV 9.7 8.4 - 12.0 fL [facility] NRBC 0.00 0.00 /100 WBCs [facility] ABSOLUTE NRBC 0.00 0.00 K/uL [facility] DIFF METHOD Auto [facility] NEUTS 64.1 48.0 - 76.0 % [facility] LYMPHS 28.7 18.0 - 41.0 % [facility] MONOS 4.7 4.0 - 11.0 % [facility] EOS 1.7 0.0 - 5.0 % [facility] BASOS 0.3 0.0 - 1.5 % [facility] Granulocytes, immature (%) 0.5 0.0 - 0.9 % [facility] ABSOLUTE NEUTS 4.06 1.92 - 7.60 K/uL [facility] ABSOLUTE LYMPHS 1.82 0.72 - 4.10 K/uL [facility] ABSOLUTE MONOS 0.30 0.16 - 1.10 K/uL [facility] ABSOLUTE EOS 0.11 0.00 - 0.50 K/uL [facility] ABSOLUTE BASOS 0.02 0.00 - 0.15 K/uL [facility] Granulocytes, immature 0.03 0.00 - 0.09 K/uL [facility] Blood 02/14/2025 11:5 2 AM EDT 02/14/2025 11:54 AM EDT Paul Gottlieb [facility] LAB BLOOD ORDERABLES Final Result [address] [address] * (ABNORMAL) Potassium (02/14/2025 11:52 AM EDT) POTASSIUM 3.2(L) 3.3 - 5.1 mmol/L [facility] Blood 02/14/2025 11:5 2 AM EDT 02/14/2025 11:54 AM EDT Paul Gottlieb [facility] LAB BLOOD ORDERABLES Final Result [address] [address] * (ABNORMAL) Folate (02/14/2025 11:52 AM EDT) FOLIC ACID >20.0(H) 4.2 - 19.9 ng/mL [facility] Blood 02/14/2025 11:5 2 AM EDT 02/14/2025 11:54 AM EDT Paul Gottlieb [facility] LAB BLOOD ORDERABLES Final Result [address] [address] * Ferritin (02/14/2025 11:52 AM EDT) Only the most recent of2 resultswithin the time period is included. FERRITIN 38 13 - 150 ug/L [facility] Blood 02/14/2025 11:5 2 AM EDT 02/14/2025 11:54 AM EDT Paul Gottlieb [facility] LAB BLOOD ORDERABLES Final Result Performing Organization Address City/[facility]/ZIP Co de Phone Number [address] [address] * FL CHEST FLUOROSCOPY WITH 2 VIEW CHEST XR (02/08/2025 10:46 AM EDT) Anatomical Region Laterality Modality Chest Computed Radiogr aphy 02/08/2025 11:4 9 AM EDT Impressions 02/08/2025 11:55 AM EDT No evidence of hemidiaphragmatic paralysis. Radiation Exposure: Fluoroscopy Time: min, Dose: mGy, Dose Area Product (DAP): , Number of Spot films: Narrative 02/08/2025 11:55 AM EDT FL CHEST FLUOROSCOPY WITH 2 VIEW CHEST XR COMPARISON: 11/17/2024 chest radiographs OPERATORS: Juan Carlos Khalil CHEST RADIOGRAPH FINDINGS: Lines/tubes: None. Lungs: Stable elevation of right hemidiaphragm. Visualized lung lazo are clear without focal airspace consolidation or interstitial changes. Pleura: There is no pleural effusion or pneumothorax. Heart and Mediastinum: Heart and pulmonary vessels are stable in size. Bones: Visualized bony thorax intact. CHEST FLUOROSCOPY FINDINGS: Fluoroscopic evaluation of the lung bases during normal breathing and forced sniffs reveal fairly symmetric diaphragmatic movement. No paradoxical motion. Procedure Note Juan Carlos Khalil MD - 02/08/2025 FL CHEST FLUOROSCOPY WITH 2 VIEW CHEST XR COMPARISON: 11/17/2024 chest radiographs OPERATORS: Juan Carlos Khalil CHEST RADIOGRAPH FINDINGS: Lines/tubes: None. Lungs: Stable elevation of right hemidiaphragm. Visualized lung fieldsare clear without focal airspace consolidation or interstitial changes. Pleura: There is no pleural effusion or pneumothorax. Heart and Mediastinum: Heart and pulmonary vessels are stable in size. Bones: Visualized bony thorax intact. CHEST FLUOROSCOPY FINDINGS: Fluoroscopic evaluation of the lung bases during normal breathing andforced sniffs reveal fairly symmetric diaphragmatic movement. Noparadoxical motion. IMPRESSION: No evidence of hemidiaphragmatic paralysis. Radiation Exposure: Fluoroscopy Time: min, Dose: mGy, Dose Area Product (DAP): , Number of Spot films: us Jared Lee MD IMG FL EXAMS Final Re sult * (ABNORMAL) CBC (02/07/2025 12:20 PM EDT) Only the most recent of2 resultswithin the time period is included. WBC 8.08 4.00 - 11.00 K/uL [facility] RBC 4.02 4.00 - 5.20 M/uL [facility] HGB 10.8(L) 12.0 - 16.0 g/dL [facility] HCT 34.6(L) 36.0 - 46.0 % [facility] PLT 236 150 - 450 K/uL [facility] MCV 86.1 80.0 - 100.0 fL [facility] MCH 26.9(L) 27.0 - 31.0 pg [facility] MCHC 31.2(L) 32.0 - 36.0 g/dL [facility] RDW 15.9(H) 11.5 - 14.5 % [facility] MPV 10.0 8.4 - 12.0 fL [facility] NRBC 0.20(H) 0.00 /100 WBCs [facility] ABSOLUTE NRBC 0.02(H) 0.00 K/uL [facility] Blood 02/07/2025 12:2 0 PM EDT 02/07/2025 12:21 PM EDT us Paul Gottlieb [employer] LAB BLOOD ORDERABLES Final Result [address] [address] * (ABNORMAL) Basic metabolic panel (02/07/2025 12:20 PM EDT) SODIUM 137 133 - 146 mmol/L [facility] CHLORIDE 97 96 - 108 mmol/L [facility] POTASSIUM 3.2(L) 3.3 - 5.1 mmol/L [facility] CO2 27 21 - 35 mmol/L [facility] BUN 16 6 - 19 mg/dL [facility] CREATININE 1.00 0.5 - 1.5 mg/dL [facility] GLUCOSE 103(H) 70 - 99 mg/dL [facility] CALCIUM 9.3 8.4 - 10.3 mg/dL [facility] EGFR 60 >59 mL/min/1.7 3m2 [facility] Comment:Estimated glomerular filtration rate calculated using the CKD-EPI refit equation. ANION GAP 16 10 - 20 mmol/L [facility] Blood 02/07/2025 12:2 0 PM EDT 02/07/2025 12:21 PM EDT Paul Gottlieb [employer] LAB BLOOD ORDERABLES Final Result Performing Organization Address City/[facility]/ZIP Co de Phone Number [address] [address] * CT FACE (SINUS) WITHOUT CONTRAST (01/24/2025 8:11 AM EDT) Anatomical Region Laterality Modality Face Computed Tomogra phy 01/26/2025 10:4 9 AM EDT Impressions 01/27/2025 10:51 PM EDT 1. Soft tissue density opacifying and expanding a posteroinferior recess of the left maxillary sinus, progressed since June 19, 2009, with a similar osseous defect anteriorly. This finding may reflect a mucocele. 2. Similar posttraumatic and postoperative changes in the face, as described. 3. Partially empty sella, prominent bilateral optic nerve sheaths, and scattered intraosseous arachnoid granulations. These findings can be seen with idiopathic intracranial hypertension in the appropriate clinical setting. ATTESTATION: I, Dr. Rey Calvillo as teaching physician, have reviewed the images for this case and if necessary edited the report originally created by Lino Marie. Narrative 01/27/2025 10:[address] FACE (SINUS) WITHOUT CONTRAST Referring clinician's provided indication for this examination in Epic: * Sinusitis, chronic or recurrent TECHNIQUE: Multidetector-row CT of the sinuses was performed without intravenous contrast using tailored dose modulation techniques. Images were reconstructed in the axial, coronal, and sagittal planes. COMPARISON: CT ANGIO NECK WITH CONTRAST 2022- FINDINGS: Frontal sinuses and frontoethmoidal junctions: Trace mucosal thickening in the inferior left frontal sinus. Otherwise clear. Anterior and posterior ethmoid air cells: Bilateral partial ethmoidectomy. Mild mucosal thickening. Old fracture deformity in the right lamina papyracea with protrusion of the orbital fat into and ethmoid air cells (4; 178). Maxillary sinuses and infundibula, and imaged maxillary teeth: Similar posttraumatic and postoperative changes related to partial obliteration of the right maxillary sinus. There is distorted maxillary sinus is well aerated. Patent bilateral maxillary antrostomies. Soft tissue density opacifying and expanding a posteroinferior recess of the left maxillary sinus (progressed since June 19, 2009), with a similar osseous defect anteriorly (4; 241). The opacification extends to the left posterior maxillary alveolus, involving the extraction socket of the left second molar. The left maxillary sinus is otherwise well aerated. Torus palatinus. Sphenoid sinuses and sphenoethmoidal recesses: Clear. Old fracture deformity of the left pterygoid plate. Nasal cavity: Leftward nasal septal deviation with a mildly displaced old fracture deformity (4; 235). Mastoid air cells and middle ear cavities: Clear. Lateralized right senile dural angle, communicating with an asymmetrically prominent mastoid emissary vein. Temporomandibular joints: Redemonstration of bony exostosis projecting into the right temporomandibular joint, with associated degenerative changes of the right mandibular condyle. No significant degenerative remodeling on the left. Brain: Images of the brain parenchyma are not of diagnostic quality for the soft tissues. Prominent bilateral intraosseous arachnoid granulations in the middle cranial fossa. Partially empty sella, which appears slightly expanded. There are atherosclerotic calcifications of the carotid siphons. Orbits and globes: Redemonstration of right orbital floor defect. Bilateral lens extraction. Prominent bilateral optic nerve sheaths. Redemonstration of cerclage along the superolateral right orbit. Other: Hyperostosis frontalis interna. Retropharyngeal course of the visualized proximal left internal carotid artery, with atherosclerotic calcifications (4; 317), better evaluated on CTA neck in July 2022. Procedure Note Rey Zafar MD - 01/27/2025 CT FACE (SINUS) WITHOUT CONTRAST Referring clinician's provided indication for this examination in Epic: *Sinusitis, chronic or recurrent TECHNIQUE: Multidetector-row CT of the sinuses was performed withoutintravenous contrast using tailored dose modulation techniques. Imageswere reconstructed in the axial, coronal, and sagittal planes. COMPARISON: CT ANGIO NECK WITH CONTRAST 2022- FINDINGS: Frontal sinuses and frontoethmoidal junctions: Trace mucosal thickening inthe inferior left frontal sinus. Otherwise clear. Anterior and posterior ethmoid air cells: Bilateral partial ethmoidectomy.Mild mucosal thickening. Old fracture deformity in the right laminapapyracea with protrusion of the orbital fat into and ethmoid air cells(4; 178). Maxillary sinuses and infundibula, and imaged maxillary teeth: Similarposttraumatic and postoperative changes related to partial obliteration ofthe right maxillary sinus. There is distorted maxillary sinus is wellaerated. Patent bilateral maxillary antrostomies. Soft tissue density opacifyingand expanding a posteroinferior recess of the left maxillary sinus(progressed since June 19, 2009), with a similar osseous defectanteriorly (4; 241). The opacification extends to the left posteriormaxillary alveolus, involving the extraction socket of the left secondmolar. The left maxillary sinus is otherwise well aerated. Torus palatinus. Sphenoid sinuses and sphenoethmoidal recesses: Clear. Old fracturedeformity of the left pterygoid plate. Nasal cavity: Leftward nasal septal deviation with a mildly displaced oldfracture deformity (4; 235). Mastoid air cells and middle ear cavities: Clear. Lateralized right seniledural angle, communicating with an asymmetrically prominent mastoidemissary vein. Temporomandibular joints: Redemonstration of bony exostosis projectinginto the right temporomandibular joint, with associated degenerativechanges of the right mandibular condyle. No significant degenerativeremodeling on the left. Brain: Images of the brain parenchyma are not of diagnostic quality forthe soft tissues. Prominent bilateral intraosseous arachnoid granulationsin the middle cranial fossa. Partially empty sella, which appears slightlyexpanded. There are atherosclerotic calcifications of the carotidsiphons. Orbits and globes: Redemonstration of right orbital floor defect.Bilateral lens extraction. Prominent bilateral optic nerve sheaths.Redemonstration of cerclage along the superolateral right orbit. Other: Hyperostosis frontalis interna. Retropharyngeal course of thevisualized proximal left internal carotid artery, with atheroscleroticcalcifications (4; 317), better evaluated on CTA neck in July 2022. IMPRESSION: 1. Soft tissue density opacifying and expanding a posteroinferior recessof the left maxillary sinus, progressed since June 19, 2009, with asimilar osseous defect anteriorly. This finding may reflect a mucocele. 2. Similar posttraumatic and postoperative changes in the face, asdescribed. 3. Partially empty sella, prominent bilateral optic nerve sheaths, andscattered intraosseous arachnoid granulations. These findings can be seenwith idiopathic intracranial hypertension in the appropriate clinicalsetting. ATTESTATION: I, Dr. Rey Calvillo as teaching physician, havereviewed the images for this case and if necessary edited the reportoriginally created by Lino Marie. Peter Melgoza MD IMG CT HEAD/NECK Final Result * (ABNORMAL) Uric acid (12/25/2024 11:47 AM EDT) URIC ACID 7.3(H) 2.4 - 7.0 mg/dL [facility] Blood 12/25/2024 11:4 7 AM EDT 12/25/2024 11:50 AM EDT Paul Gottlieb [employer] LAB BLOOD ORDERABLES Final Result [address] [address] * Hemoglobin A1c (12/25/2024 11:47 AM EDT) Pathologist [facility] HEMOGLOBIN A1C 5.5 4.3 - 5.8 % [facility] Blood 12/25/2024 11:4 7 AM EDT 12/25/2024 11:49 AM EDT Paul Gottlieb [employer] LAB BLOOD ORDERABLES Final Result [address] [address] * (ABNORMAL) Comprehensive metabolic panel (12/19/2024 11:44 AM EDT) Pathologist [facility] SODIUM 142 133 - 146 mmol/L [facility] POTASSIUM 3.9 3.3 - 5.1 mmol/L [facility] CHLORIDE 102 96 - 108 mmol/L [facility] CO2 26 21 - 35 mmol/L [facility] BUN 15 6 - 19 mg/dL [facility] CREATININE 1.00 0.5 - 1.5 mg/dL [facility] GLUCOSE 105(H) 70 - 99 mg/dL [facility] ALBUMIN 4.1 3.9 - 4.8 g/dL [facility] TOTAL PROTEIN 6.8 6.5 - 8.0 g/dL [facility] CALCIUM 9.6 8.4 - 10.3 mg/dL [facility] ALKALINE PHOSPHATASE 99 39 - 117 U/L [facility] TOTAL BILIRUBIN 0.3 0.0 - 1.2 mg/dL [facility] AST 17 0 - 37 U/L [facility] ALT 9 0 - 40 U/L [facility] GLOBULIN 2.7 1 - 4.8 g/dL [facility] EGFR 60 >59 mL/min/1.7 3m2 [facility] Comment:Estimated glomerular filtration rate calculated using the CKD-EPI refit equation. ANION GAP 18 10 - 20 mmol/L [facility] Blood 12/19/2024 11:4 4 AM EDT 12/19/2024 11:47 AM EDT Paul Gottlieb [employer] LAB BLOOD ORDERABLES Final Result [address] [address] * TSH with reflex (12/19/2024 11:44 AM EDT) TSH 1.91 0.27 - 4.20 uIU/mL [facility] Blood 12/19/2024 11:4 4 AM EDT 12/19/2024 11:47 AM EDT Paul Gottlieb [employer] LAB BLOOD ORDERABLES Final Result [address] [address] * MAMMOGRAPHY FOR RESULT ENTRY ONLY (11/15/2024 10:20 AM EDT) Historical Provider HEALTH MAINTENANCE Edited Result - Final * BD DXA AXIAL (SPINE) WITH HIP (09/05/2020 1:58 PM EDT) Anatomical Region Laterality Modality Bone Density Bone Density 09/05/2020 1:48 PM EDT Impressions 09/05/2020 1:50 PM EDT Findings consistent with osteopenia as demonstrated in the lumbar spine. Narrative 09/05/2020 1:50 PM EDT This is a 69-year-old postmenopausal female presenting for a screening exam. Compared with previous study dated 02/10/2019.. Evaluation of the lumbar spine and both hips is obtained and appears technically adequate. The lumbar spine from L1 through L4 discloses a total bone mineral density of 0.912 g/cm2 with a T-score of -1.2. Z score 0.7. This is in the osteopenia range. Direct correlation with values from 02/10/2019 study is not reliable due to differences in technical factors. The right hip (total) has a total bone mineral density of 1.082 g/cm2 with a T-score of 1.1. This is in the normal range. No statistically significant change from 02/10/2019 The right hip (neck) has a total bone mineral density of 0.786 g/cm2 with a T- score of -0.6. The left hip (total) has a total bone mineral density of 1.073 g/cm2 for a T- score of 1.1. This is in the normal range. No statistically significant change from 02/10/2019 The left hip (neck) has a total bone mineral density of 0.821 g/cm2 with a T- score of -0.3. Procedure Note Adrian Alegre MD - 09/05/2020 This is a 69-year-old postmenopausal female presenting for a screeningexam. Compared with previous study dated 02/10/2019.. Evaluation of the lumbar spine and both hips is obtained and appearstechnically adequate. The lumbar spine from L1 through L4 discloses a total bone mineral densityof 0.912 g/cm2 with a T-score of -1.2. Z score 0.7. This is in theosteopenia range. Direct correlation with values from 02/10/2019 study isnot reliable due to differences in technical factors. The right hip (total) has a total bone mineral density of 1.082 g/xy7aerw a T- score of 1.1. This is in the normal range. No statisticallysignificant change from 02/10/2019 The right hip (neck) has a total bone mineral density of 0.786 g/cm2 witha T- score of -0.6. The left hip (total) has a total bone mineral density of 1.073 g/cm2 for aT- score of 1.1. This is in the normal range. No statistically significantchange from 02/10/2019 The left hip (neck) has a total bone mineral density of 0.821 g/cm2 with aT- score of -0.3. IMPRESSION: Findings consistent with osteopenia as demonstrated in the lumbar spine. Ron Friend MD IMG BD BONE DENSITY DEXA Final Result * Outside Hepatitis C Virus Screening (09/19/2018) Hepatitis C Screening - External Neg Historical Provider LAB BLOOD ORDERABLES Gabby l Result from Last 3 Months or Most Recently Relevant to Health Maintenance Insurance [employer]ET[employer] PPO MEDICARE REPLACEMENT MEDICARE PART A & B AETNA [facility] MEDICARE REPLACEMENT [facility] & [facility]IC[facility] PART A & B Member Subscriber Plan / Payer (Ef fective 2017-Present) Name:Chitra Lafleur Member ID:[id number] Relation to Subscriber:Self Name:Chitra Lafleur Subscriber ID:[id number] Payer ID:[id number] Group ID:Not on file Type:Medicare Address: [facility] [employer] [facility] [address] [place] [phone] AETNA O MEDICARE REPLACEMENT MEDICARE PART A & B AETNA O MEDICARE REPLACEMENT MEDICARE PART A & B MEDICARE REPLACEMENT MEDICARE PART A & B Advance Directives For more information, please contact: [phone] (9AM - 5PM [place]/[facility], Wednesday-Wednesday) Documents on File Type Date Recorded Patient Sider Expl anation Healthcare Proxy 03/09/2025 3:13 PM MOLST 06/26/2021 Molst Form * Full Code (Latest Code Status on File) Date Activated Date Inactivated Comments 03/06/2025 1:40 PM Question Answer Comments Code Status Confirmed With: Patient * Full Code Date Activated Date Inactivated Comments 10/25/2023 2:21 PM 03/06/2025 1:40 PM Question Answer Comments Code Status Confirmed With: Other (specify below ) Code Status Communicated To: PCP Care Teams Inside Sales Advertising Executive Relationship Specialty Start Date End Date Paul Gottlieb CNP [address] [place] [address] [place] [address] [email or web address] PCP - General Family Medicine 12/04/22 Additional Source Comments The information contained in this document represents components of the legal health record. It is not the complete legal health record.[facility]
--- OUTSIDE RECORDS SUMMARY | 2025-03-21 15:57 | XMS_ITS | Encounter Summary ---
Author Organization [facility] Address [address] [place] [address] Phone Care Team Providers Care Clinical Product Manager Name Role Phone BullPaul DANNY Primary Care Provider +1- [phone] Encounter Details Date Type Department Care Team (Late st Contact Info) Description 12/06/2024 Hospital Encounter [facility] [address] [place] [address] Julius Odom MD, MPH [address] [place] [address] [email or web address] Social History Tobacco Use Types Packs/Day [...] 4:15 PM EDT Vaishnavi José RN * [place] Suicide Severity Rating Scale (Screener/Recent Self-Report) Question [...] 03/14/2025 Procedure Pass [facility] - [facility] [address] [address] 03/28/2025 11:00 AM EDT Office Visit [facility] 29 [place] [address] Paul Gottlieb, STUDENT ACCOUNTS MANAGER 29 [place] [address] 05/01/2025 9:30 AM EST Office Visit [facility] Pul[facility], Allergy and Critical Care Medicine [address] [place] [address] Jared Lee MD [address] [place] [address] 06/22/2025 11:00 AM EST Appointment [facility] [facility] [place] CT [address] [address] Jodie Mcmahan MD [address] [place] [address] [email or web address] 06/22/2025 11:40 AM EST Office Visit [facility] [place] [facility] [address] [place] [phone] Peter Melgoza MD [facility], [facility] [address] [place] [address] [email or web address] documented as of this encounter Visit Diagnoses Not on filedocumented in this encounter Additional Health Concerns Assessment Noted Time PHQ-2 Depression Total Score: 2 10/25/19 24 1:52 PM EDT documented as of this encounter Care Teams Clinical Product Manager Relationship Specialty Start Date End Date Paul Gottlieb CNP [address] [place] [address] [email or web address] PCP - General Family Medicine 12/04/22 documented as of this encounter Additional Source Comments The information contained in this document represents components of the legal health record. It is not the complete legal health record.[facility]
--- OUTSIDE RECORDS SUMMARY | 2025-03-21 15:57 | XMS_ITS | Encounter Summary ---
Author Organization [facility] Address [address] [facility] [address] [place] [address] Phone Care Team Providers Care Woolen Mill Utility Worker Name Role Phone Dominic Gottliebie Paz DELGADO Primary Care Provider +1- [phone] Encounter Details Date Type Department Care Team (Late st Contact Info) Description 12/06/2024 Procedure Pass [facility] [address] [place] [address] Social History Tobacco Use Types Packs/Day Years [...] st Contact Info) Description 03/14/2025 Procedure Pass [facility] [place] - [address] [address] 03/28/2025 11:00 AM EDT Office Visit [facility] 29 [place] [address] Paul Gottlieb, DANDY TENDER 29 [place] [address] [email or web address] 05/01/2025 9:30 AM EST Office Visit [facility] Pulmonary, Allergy and Critical Care Medicine 10 [facility] [place] [address] Jared Lee MD [address] [place] [address] 06/22/2025 11:00 AM EST Appointment [facility] [place] - [address] [address] Jodie Mcmahan MD [address] [place] [address] [email or web address] 06/22/2025 11:40 AM EST Office Visit [facility] [place] 0 [facility] [address] [place] [phone] Peter Melgoza MD [facility], [address] [place] [address] [email or web address] documented as of this encounter Visit Diagnoses Not on filedocumented in this encounter Additional Health Concerns Assessment Noted Time PHQ-2 Depression Total Score: 2 10/25/19 24 1:52 PM EDT documented as of this encounter Care Teams Woolen Mill Utility Worker Relationship Specialty Start Date End Date Paul Gottlieb CNP 29 [facility] [place] [address] [email or web address] PCP - General Family Medicine 12/04/22 documented as of this encounter Additional Source Comments The information contained in this document represents components of the legal health record. It is not the complete legal health record.[facility]
--- OUTSIDE RECORDS SUMMARY | 2025-03-21 15:57 | XMS_ITS | Encounter Summary ---
Author Organization [facility] Address [address] [facility] [address] [place] [address] Phone Care Team Providers Care Facility Administrator Name Role Phone Dominic Gottleibie Paz DELGADO Primary Care Provider +1- [phone] Encounter Details Date Type Department Care Team (Late st Contact Info) Description 12/11/2024 Procedure Pass [facility] [address] [place] [address] Social History Tobacco Use Types Packs/Day Years [...] st Contact Info) Description 03/14/2025 Procedure Pass [facility] Imaging - [address] [address] 03/28/2025 11:00 AM EDT Office Visit [facility] 29 [place] [address] Paul Gottlieb, CHIEF PORT DIRECTOR 29 [place] [address] 05/01/2025 9:30 AM EST Office Visit [facility] Pulmonary, Allergy and Critical Care Medicine 10 [facility] [place] [address] Jared Lee MD [address] [place] [address] 06/22/2025 11:00 AM EST Appointment [facility] Imaging - [address] [address] Jodie Mcmahan MD [address] [place] [address] [email or web address] 06/22/2025 11:40 AM EST Office Visit [facility] 0 [facility] [address] [place] [phone] Peter Melgoza MD [facility], [address] [place] [address] [email or web address] documented as of this encounter Visit Diagnoses Not on filedocumented in this encounter Additional Health Concerns Assessment Noted Time PHQ-2 Depression Total Score: 2 10/25/19 24 1:52 PM EDT documented as of this encounter Care Teams Facility Administrator Relationship Specialty Start Date End Date Paul Gottlieb CNP 29 [facility] [place] [address] [email or web address] PCP - General Family Medicine 12/04/22 documented as of this encounter Additional Source Comments The information contained in this document represents components of the legal health record. It is not the complete legal health record.[facility]
--- OUTSIDE RECORDS SUMMARY | 2025-03-21 15:57 | XMS_ITS | Encounter Summary ---
Author Organization [facility] Address [address] [facility] [address] [place] [address] Phone Care Team Providers Care Commissioner Of Relocation Services Name Role Phone Bull Paul Mullen DANNY Primary Care Provider +1- [phone] Reason for Referral * MRI/CAT Scan - Closed Specialty Diagnoses / Procedures Referred By Contdean t Referred To Contact Radiology Diagnoses Chronic sinusitis Procedures CT Face Peter Melgoza MD Phone: tel: fax: mailto:[email or web address] Referral ID Status Reason Start Date Expiration Date Visits Re quested Visits Authorized [id number] Closed 01/04/2025 07/07/2025 1 1 Encounter Details Date Type Department Care Team (Latest Contact Info) Description 01/04/2025 Transcribe Orders [facility] [address] [facility] [address] [place] [address] Vera Telles [place] [email or web address] Chronic sinusitis (Primary Dx) Social History Tobacco Use Types [...] 03/14/2025 Procedure Pass [facility] - [place] [address] [address] 03/28/2025 11:00 AM EDT Office Visit [address] [address] Paul Gottlieb CNP 29 [place] [address] 05/01/2025 9:30 AM EST Office Visit [facility], Allergy [facility] Critical [facility] Medicine [address] [place] [address] [place] [address] Jared Lee MD [address] [place] [address] 06/22/2025 11:00 AM EST Appointment [facility] - CT [address] [address] Jodie Mcmahan MD [address] [place] [address] [email or web address] 06/22/2025 11:40 AM EST Office Visit [facility] [address] [place] [address] Peter Melgoza MD [address], [address] [place] [address] [email or web address] documented as of this encounter Results * CT FACE (SINUS) WITHOUT CONTRAST (01/24/2025 [...] planes. COMPARISON: CT ANGIO NECK WITH CONTRAST FINDINGS: Frontal sinuses and frontoethmoidal junctions: Trace [...] edited the reportoriginally created by Lino Marie. us Peter Melgoza MD IMG CT HEAD/NECK Final Result documented in this encounter Visit Diagnoses Diagnosis Chronic sinusitis- Primary Unspecified sinusitis (chronic) Chronic sinusitis Unspecified sinusitis (chronic) documented in this encounter Additional Health Concerns Assessment Noted Time PHQ-2 Depression Total Score: 2 10/25/19 24 1:52 PM EDT documented as of this encounter Care Teams Commissioner Of Relocation Services Relationship Specialty Start Date End Date Paul Gottlieb CNP [address] [place] [address] [email or web address] PCP - General Family Medicine 12/04/22 documented as of this encounter Additional Source Comments The information contained in this document represents components of the legal health record. It is not the complete legal health record.[facility]
--- OUTSIDE RECORDS SUMMARY | 2025-03-21 15:57 | XMS_ITS | Clinical Summary ---
Author Organization [facility] [place] [address] Care Team Providers Care Guidance Consultant Name Role Phone Unavailable Primary Care Provider Unavailabl e Social History Tobacco Use Types Packs/Day Years Used Date Smoking Tobacco: Never Assessed Comments Unknown Sex and Gender Information Value Date Recorded Sex Assigned at Not on file Legal Sex Female 6:37 PM EST Gender Identity Not on file Sexual Orientation Not on file Plan of Treatment Health Maintenance Due Date Last Done Comments CT Colonography 1952 Colonoscopy 1952 Colorectal Cancer Screening 1952 FIT DNA 1952 FIT 1952 Sigmoidoscopy (10 year) with FIT yearly 1952 Sigmoidoscopy 1952 Hepatitis C Screening 1970 Tetanus/Diphtheria/Pertussis Vaccines (1 - Tdap) 12/02 Breast Cancer Share Decision Needed 1992 Breast Cancer screening 1992 Pneumoccocal Vaccine: 50+ (1 of 1 - PCV) 2002 Zoster vaccine (1 of 2) 2002 Advance Directive 12/03/2007 Bone Density Scan 2017 Covid-19 Vaccine (1 - 2023- season) 2025 Influenza (Flu) vaccine (1 o f 1 - Influenza standard series) 02/05/2025 Insurance [facility] SHIELD OOS AETNA MANAGED MEDICARE
--- OUTSIDE RECORDS SUMMARY | 2025-03-21 15:57 | XMS_ITS | Encounter Summary ---
Author Organization [facility] Address [address] [facility] [address] [place] [address] Phone Care Team Providers Care Museum Tour Guide Name Role Phone Bull Paul Paz DELGADO Primary Care Provider +1- [phone] Encounter Details Date Type Department Care Team (Late st Contact Info) Description 08/05/2023 Telephone [facility] Rheumatology [address] [place] [address] Danette Denise MD, MPH 22 [facility], [address] [place] [address] Social History Tobacco Use Types Packs/Day Years [...] 03/14/2025 Procedure Pass [facility] - [facility] [address] [address] 03/28/2025 11:00 AM EDT Office Visit [facility] 29 [place] [address] Paul Gottlieb, CABINET WORKER 29 [place] [address] 05/01/2025 9:30 AM EST Office Visit [facility], Allergy [facility] Critical [facility] Medicine 10 [place] [address] Jared eLe MD [address] [place] [address] 06/22/2025 11:00 AM EST Appointment [facility] [place] CT [address] [address] Jodie Mcmahan MD [address] [place] [address] [email or web address] 06/22/2025 11:40 AM EST Office Visit [facility] [place] [facility] 0 [facility] [address] [place] [phone] Peter Melgoza MD [facility], [facility] 2[address] [place] [address] [email or web address] documented as of this encounter Visit [...] documented as of this encounter Care Teams Museum Tour Guide Relationship Specialty Start Date End Date Paul Gottlieb CNP [address] [place] [address] [place] [address] [email or web address] PCP - General Family Medicine 12/04/22 documented as of this encounter Additional Source Comments The information contained in this document represents components of the legal health record. It is not the complete legal health record.[facility]
--- OUTSIDE RECORDS SUMMARY | 2025-03-21 15:58 | XMS_ITS | Encounter Summary ---
Author Organization [facility] Address [address] [place] [address] [place] [address] Phone Care Team Providers Care Mine Analyst Name Role Phone KierastaciLaurary Karmen JEWELRY STORE MANAGER Primary Care Provider Clarence Bales MD Primary Care Provider [phone] Paul Gottlieb CNP Primary Care Provider [phone]- [phone] Encounter Details Date Type Department Care Team (Late st Contact Info) Description 06/12/2022 Procedure Pass [address] [address] Social History Tobacco Use Types Packs/Day Years [...] Procedure Pass [facility] - [facility] Main [place] [address] [place] [address] 03/28/2025 11:00 AM EDT Office Visit [address] [phone] Paul Gottlieb CNP 29 [place] [address] 05/01/2025 9:30 AM EST Office Visit [facility], Allergy and Critical Care Medicine 10 [facility] [address] [place] [address] Jared Lee MD 10 [facility] 2nd [place] [address] 06/22/2025 11:00 AM EST Appointment [facility] [place] [facility] [address] [place] [address] Jodie Mcmahan MD [address] [place] [address] [email or web address] 06/22/2025 11:40 AM EST Office Visit [facility] 0 [facility] [address] [place] [address] Peter Melgoza MD [facility], [address] [place] [address] [email or web address] documented as of this encounter [...] Time PHQ-2 Depression Total Score: 2 09/12/19 1:35 PM EDT documented as of this encounter Care Teams Mine Analyst Relationship Specialty Start Date End Date Em Parekh CNP [address] [place] [address] [email or web address] PCP - General Internal Medicine 06/26/20 11/15/22 Clarence Bales MD [address] [place] [address] PCP - General Internal Medicine 11/16/22 12/03/22 Paul Gottlieb CNP [address] [place] [address] [place] [address] PCP - General Family Medicine 12/04/22 documented as of this encounter Additional Source Comments The information contained in this document represents components of the legal health record. It is not the complete legal health record.[facility]
--- OUTSIDE RECORDS SUMMARY | 2025-03-21 15:58 | XMS_ITS | Encounter Summary ---
Author Organization [facility] Address [address] [facility] [address] [place] [address] Phone Care Team Providers Care Ux Researcher Name Role Phone Paul Gottlieb CNP Primary Care Provider [phone]- [phone] Encounter Details Date Type Department Care Team (Late st Contact Info) Description 12/28/2023 Procedure Pass [facility], Ct Scan - [address] [address] Social History Tobacco Use Types Packs/Day Years [...] 03/14/2025 Procedure Pass [facility] - CT [address] [address] 03/28/2025 11:00 AM EDT Office Visit [facility] 29 [place] [address] Paul Gottlieb, ORGANIC LAB WORKER 29 [place] [address] 05/01/2025 9:30 AM EST Office Visit [facility], Allergy and Critical [facility] Medicine [address] [place] [address] Jared Lee MD [address] [place] [address] 06/22/2025 11:00 AM EST Appointment [facility] [place] CT [address] [address] Jodie Mcmahan MD [address] [place] [address] [email or web address] 06/22/2025 11:40 AM EST Office Visit [facility] 0 [facility] [address] [place] [phone] Peter Melgoza MD [facility], [address] [place] [address] [email or web address] documented as of this encounter Visit Diagnoses Not on filedocumented in this encounter Additional Health Concerns Infection Onset Date Last Indicated Resolved Time CoV-Risk Comment:Per Ambulatory Triage Form 02/29/2024 02/29/202403/11 1:22 AM EDT CDiff-Risk 03/15/2024 03/16/2024 03/16/2024 2:58 PM EDT CDiff-Risk 07/14/2024 07/15/2024 07/15/2024 12:2 8 PM EST Assessment Noted Time PHQ-2 Depression Total Score: 2 10/25/19 1:52 PM EDT documented as of this encounter Care Teams Ux Researcher Relationship Specialty Start Date End Date Paul Gottlieb CNP [address] [place] [address] [email or web address] PCP - General Family Medicine 12/04/22 documented as of this encounter Additional Source Comments The information contained in this document represents components of the legal health record. It is not the complete legal health record.[facility]
--- OUTSIDE RECORDS SUMMARY | 2025-03-21 15:58 | XMS_ITS | Encounter Summary ---
Author Organization [facility] Address [address] [place] [address] Phone Care Team Providers Care Collection Systems Technician Name Role Phone BullPaul DANNY Primary Care Provider [phone]- [phone] Encounter Details Date Type Department Care Team (Late st Contact Info) Description 03/16/2025 Episode Changes [facility] Ambulatory Safety Net [address] [place] [address] Key Christensen [address] [place] [address] [email or web address] Social History Tobacco Use Types Packs/Day Years [...] 03/14/2025 Procedure Pass [facility] - CT [address] [address] 03/28/2025 11:00 AM EDT Office Visit [facility] [address] [address] Paul Gottlieb, DANNY 29 [place] [address] 05/01/2025 9:30 AM EST Office Visit [facility] Pulmonary, Allergy and Critical Care Medicine 10 [place] [address] Jared Lee MD 10 [facility] 2nd [place] [address] 06/22/2025 11:00 AM EST Appointment [facility] - [facility] Main [place] [address] [place] [address] Jodie Mcmahan MD [address] [place] [address] [email or web address] 06/22/2025 11:40 AM EST Office Visit [facility] Otol[facility] [address] [place] [address] Peter Melgoza MD Zero [facility], [address] [place] [address] [email or web address] documented as of this encounter Visit Diagnoses Not on filedocumented in this encounter Additional Health Concerns Assessment Noted Time PHQ-2 Depression Total Score: 2 10/25/19 24 1:52 PM EDT documented as of this encounter Care Teams Collection Systems Technician Relationship Specialty Start Date End Date Paul Gottlieb CNP 29 [facility] [place] [address] [email or web address] PCP - General Family Medicine 12/04/22 documented as of this encounter Additional Source Comments The information contained in this document represents components of the legal health record. It is not the complete legal health record.[facility]
--- OUTSIDE RECORDS SUMMARY | 2025-03-21 15:58 | XMS_ITS | Encounter Summary ---
Author Organization [facility] Address [address] [place] [address] [place] [address] Phone Care Team Providers Care Ostomy Rn Name Role Phone Em Parekh CHILD CARE COORDINATOR Primary Care Provider Clarence Bales MD Primary Care Provider [phone] Paul Gottlieb CHILD CARE COORDINATOR Primary Care Provider [phone] Encounter Details Date Type Department Care Team (Late st Contact Info) Description 10/09/2020 Ancillary Orders [facility] Internal Medicine [address] [place], [place] [phone] Em Parekh CNP [address] [place] [address] [email or web address] Breast screening Social History Tobacco Use Types [...] Procedure Pass [facility] Imaging - CT Main [address] [address] 03/28/2025 11:00 AM EDT Office Visit [facility] 29 [place] [address] Paul Gottlieb, DANNY [address] [place] [address] 05/01/2025 9:30 AM EST Office Visit [facility] Pulmonary, Allergy and Critical Care Medicine [address] [place] [address] [place] [address] Jared Lee MD [address] [place] [address] 2nd [place] [address] 06/22/2025 11:00 AM EST Appointment [facility] Imaging - [facility] [address] [place] [address] Jodie Mcmahan MD [address] [place] [address] [email or web address] 06/22/2025 11:40 AM EST Office Visit [facility] Otolaryngology [facility] 0 [facility] [address] [place] [address] Peter Melgoza MD [facility], [address] [place] [address] [email or web address] documented as of this encounter Results * BI MAMMOGRAM SCREENING WITH TOMOSYNTHESIS WITH CAD (BILATERAL) (10/22/2020 12:02 PM EDT) Anatomical Region Laterality Modality Breast Left, Breast Right, Breast Bilateral Bila teral Mammography 10/22/2020 12:5 4 PM EDT Impressions 10/22/2020 12:57 PM EDT BILATERAL BREASTS: Negative, no evidence of malignancy. Normal interval follow- up is recommended in 12 months. Bi-RADS: BI-RADS CATEGORY: 1 - Negative. DENSITY: There are scattered fibroglandular densities. Narrative 10/22/2020 12:57 PM EDT STUDY: Bilateral screening mammography with tomosynthesis and CAD TECHNIQUE: Bilateral full-field digital screening mammography is obtained and read in conjunction with computer-aided detection. Tomosynthesis as well as 2-D C view imaging were obtained. COMPARISON: Comparison made to multiple prior, most recent November 02, 2018, and most remote February 20, 2014. BREAST COMPOSITION: There are scattered areas of fibroglandular density BILATERAL BREASTS: No significant masses, suspicious calcifications or other abnormalities are seen. Procedure Note Ruthy Fry MD - 10/22/2020 STUDY: Bilateral screening mammography with tomosynthesis and CAD TECHNIQUE: Bilateral full-field digital screening mammography is obtainedand read in conjunction with computer-aided detection. Tomosynthesis aswell as 2-D C view imaging were obtained. COMPARISON: Comparison made to multiple prior, most recent November 02, 2018,and most remote February 20, 2014. BREAST COMPOSITION: There are scattered areas of fibroglandulardensity BILATERAL BREASTS: No significant masses, suspicious calcifications orother abnormalities are seen. IMPRESSION: BILATERAL BREASTS: Negative, no evidence of malignancy. Normal intervalfollow-up is recommended in 12 months. Bi-RADS: BI-RADS CATEGORY: 1 - Negative. DENSITY: There are scattered fibroglandular densities. Em Parekh [facility] IMG MG EXAMS Final Result documented in this encounter Visit [...] Assessment Noted Time PHQ-2 Depression Total Score: 0 08/26/19 8:37 PM EDT documented as of this encounter Care Teams Ostomy Rn Relationship Specialty Start Date End Date Em Parekh CNP [address] [place] [address] PCP - General Internal Medicine 06/26/20 11/15/22 Clarence Bales MD [address] [place] [address] PCP - General Internal Medicine 11/16/22 12/03/22 Paul Gottlieb CNP [address] [place] [address] PCP - General Family Medicine 12/04/22 documented as of this encounter Additional Source Comments The information contained in this document represents components of the legal health record. It is not the complete legal health record.[facility]
--- OUTSIDE RECORDS SUMMARY | 2025-03-21 15:58 | XMS_ITS | Encounter Summary ---
Author Organization [facility] Address [address] [place] [address] [place] [address] Phone Care Team Providers Care Research And Evaluation Manager Name Role Phone Dominic Gottliebie Paz DELGADO Primary Care Provider [phone] Reason for Referral * MRI/CAT Scan - Closed Specialty Diagnoses / Procedures Referred By Contac t Referred To Contact Radiology Diagnoses Left lower quadrant abdominal pain Procedures CT Abdomen/Pelvis CHG CT SCAN,ABDOMENT AND PELVIS,W CONTRAST Luz Amin MD Phone: tel: fax: mailto:[email or web address] Referral ID Status Reason Start Date Expiration Date Visits Re quested Visits Authorized [id number] Closed 12/28/2023 06/26/2024 1 1 Encounter Details Date Type Department Care Team (Latest Contact Info) Description 12/28/2023 Transcribe Orders Virtual Department [address] [place] [address] Luz Amin MD [address] [place] [address] [place] [phone] [email or web address] Left lower quadrant abdominal pain (Primary Dx) Social History Tobacco Use Types [...] 03/14/2025 Procedure Pass [facility] Imaging - CT [address] [address] 03/28/2025 11:00 AM EDT Office Visit [facility] 29 [place] [address] Paul Gottlieb, ASSISTANT PROFESSOR 29 [place] [address] 05/01/2025 9:30 AM EST Office Visit [facility] Pulmonary, Allergy and Critical Care Medicine 10 [place] [address] Jared Lee MD [address] [address] 06/22/2025 11:00 AM EST Appointment [facility] Imaging - CT Main [place] [address] [place] [address] Jodie Mcmahan MD [address] [place] [address] [email or web address] 06/22/2025 11:40 AM EST Office Visit [facility] [address] [place] [address] Peter Melgoza MD [address], [address] [place] [address] [email or web address] documented as of this encounter Results * CT ABDOMEN/PELVIS WITH CONTRAST (01/19/2024 2:09 PM EDT) Anatomical Region Laterality Modality Abdomen, Pelvis Computed Tomogra phy 01/25/2024 11:2 4 AM EDT Impressions 01/25/2024 11:44 AM EDT 1. Sigmoid diverticulosis without evidence of active diverticulitis. No other significant intra-abdominal or retroperitoneal pathology. Narrative 01/25/2024 11:[address] ABDOMEN/PELVIS WITH CONTRAST Referring clinician's provided indication for this examination in Epic: Outside Radiology Order; abdomen pain TECHNIQUE: Multidetector-row CT of the abdomen and pelvis was performed after administration of intravenous contrast using tailored dose modulation techniques. Images were reconstructed in the axial, coronal, and sagittal planes. COMPARISON: None FINDINGS: Lower Chest: No confluent airspace infiltrate or pleural effusion. Left basilar linear atelectasis versus scarring. No ethan bronchiectasis. Liver: No parenchymal mass or cyst. Biliary: Status post cholecystectomy. No evidence of biliary obstruction. Spleen: No splenomegaly or focal parenchymal lesion. There is an 11 mm left upper quadrant nodule consistent with splenule. Pancreas: No pancreatic mass, duct dilatation, or peripancreatic inflammatory infiltration. Adrenal Glands: No nodules. Kidneys/Ureters: No parenchymal mass, dominant cyst, or hydronephrosis. No nephrolithiasis. Bowel: Small hiatal hernia. No evidence of small bowel obstruction. Colon nonopacified. Sigmoid diverticulosis. No paracolic inflammatory stranding apparent. Peritoneum/Retroperitoneum: No free fluid or mass. Lymph Nodes: No pathologically enlarged mesenteric, para-aortic, iliac chain, or inguinal nodes. Pelvic Organs/Bladder: Status post hysterectomy. Bladder collapsed. No free fluid or mass. Vessels: Aortoiliac atherosclerotic plaquing. No focal aneurysm. Main trunks of the SMA and celiac axis grossly patent. Main portal vein grossly patent. Bones/Soft Tissues: No abdominal wall mass or bowel containing hernia. No lytic or sclerotic skeletal metastatic deposits. Chronic appearing grade 1 L5-S1 spondylolisthesis apparently on the basis of degenerative facet arthropathy. Degenerative disc changes at the thoracolumbar junction. Vacuum phenomena in the sacroiliac joints. Procedure Note Juan Carlos Khalil MD - 01/25/2024 CT ABDOMEN/PELVIS WITH CONTRAST Referring clinician's provided indication for this examination in Epic:Outside Radiology Order; abdomen pain TECHNIQUE: Multidetector-row CT of the abdomen and pelvis was performedafter administration of intravenous contrast using tailored dosemodulation techniques. Images were reconstructed in the axial, coronal,and sagittal planes. COMPARISON: None FINDINGS: Lower Chest: No confluent airspace infiltrate or pleural effusion. Leftbasilar linear atelectasis versus scarring. No ethan bronchiectasis. Liver: No parenchymal mass or cyst. Biliary: Status post cholecystectomy. No evidence of biliaryobstruction. Spleen: No splenomegaly or focal parenchymal lesion. There is an 11 mmleft upper quadrant nodule consistent with splenule. Pancreas: No pancreatic mass, duct dilatation, or peripancreaticinflammatory infiltration. Adrenal Glands: No nodules. Kidneys/Ureters: No parenchymal mass, dominant cyst, or hydronephrosis. Nonephrolithiasis. Bowel: Small hiatal hernia. No evidence of small bowel obstruction. Colonnonopacified. Sigmoid diverticulosis. No paracolic inflammatory strandingapparent. Peritoneum/Retroperitoneum: No free fluid or mass. Lymph Nodes: No pathologically enlarged mesenteric, para-aortic, iliacchain, or inguinal nodes. Pelvic Organs/Bladder: Status post hysterectomy. Bladder collapsed. Nofree fluid or mass. Vessels: Aortoiliac atherosclerotic plaquing. No focal aneurysm. Maintrunks of the SMA and celiac axis grossly patent. Main portal vein grosslypatent. Bones/Soft Tissues: No abdominal wall mass or bowel containing hernia. Nolytic or sclerotic skeletal metastatic deposits. Chronic appearing grade 1L5-S1 spondylolisthesis apparently on the basis of degenerative facetarthropathy. Degenerative disc changes at the thoracolumbar junction.Vacuum phenomena in the sacroiliac joints. IMPRESSION: 1. Sigmoid diverticulosis without evidence of active diverticulitis. Noother significant intra-abdominal or retroperitoneal pathology. Luz Amin MD IMG CT ABD/PELVIS Final Res ult documented in this encounter Visit Diagnoses Diagnosis Left lower quadrant abdominal pain- Primary Left lower quadrant abdominal pain documented in this encounter Additional Health Concerns Infection Onset Date Last Indicated Resolved Time CoV-Risk Comment:Per Ambulatory Triage Form 02/29/2024 02/29/202403/11 1:22 AM EDT CDiff-Risk 03/15/2024 03/16/2024 03/16/2024 2:58 PM EDT CDiff-Risk 07/14/2024 07/15/2024 07/15/2024 12:2 8 PM EST Assessment Noted Time PHQ-2 Depression Total Score: 2 10/25/19 1:52 PM EDT documented as of this encounter Care Teams Research And Evaluation Manager Relationship Specialty Start Date End Date Paul Gottlieb CNP [address] [place] [address] [place] [address] [email or web address] PCP - General Family Medicine 12/04/22 documented as of this encounter Additional Source Comments The information contained in this document represents components of the legal health record. It is not the complete legal health record.[facility]
--- OUTSIDE RECORDS SUMMARY | 2025-03-21 15:58 | XMS_ITS | Encounter Summary ---
Author Organization [facility] Address [address] [facility] [address] [place] [address] Phone Care Team Providers Care Blacking Machine Operator Name Role Phone Bull Paul Rajanjessica DELGADO Primary Care Provider [phone] Encounter Details Date Type Department Care Team ([facility] st Contact Info) Description 03/06/2025 Procedure Pass [facility] MAIN PERIOP DEPT [address] [place] [address] Social History Tobacco Use Types Packs/Day Years [...] your housing situation today? I have marlen mark 03/06/2025 How many times have you move [...] 4:15 PM EDT Vaishnavi José RN * [place] Suicide Severity Rating Scale (Screener/Recent Self-Report) Question Answer Date of Assessment Author 1. Wish to be (Past 1 Month) No 03/06/2025 4:15 PM EDT Vaishnavi José, [place] 2. Non-Specific Active Suicidal Thoughts (Past 1 Month) No 03/06/2025 4:15 PM EDT Vaishnavi José, [place] 6. Suicidal Behavior (Lifetime) No 03/06/2025 4:15 PM EDT Vaishnavi José, [place] documented as of this encounter Plan of Treatment Upcoming Encounters Date Type Department Care Team (Late st Contact Info) Description 03/14/2025 Procedure Pass [facility] Imaging - CT [address] [address] 03/28/2025 11:00 AM EDT Office Visit [address] [address] Paul Gottlieb CNP 29 [place] [address] 05/01/2025 9:30 AM EST Office Visit [facility]monary, Allergy and Critical Care Medicine [address] [place] [address] [place] [address] Jared Lee MD [address] [place] [address] 06/22/2025 11:00 AM EST Appointment [facility] Imaging - CT [address] [address] Jodie Mcmahan MD [address] [place] [address] [email or web address] 06/22/2025 11:40 AM EST Office Visit [facility] Otolaryngology [facility] [address] [facility] [address] [place] [phone] Peter Melgoza MD [facility], [address] [address] [email or web address] documented as of this encounter Visit Diagnoses Not on filedocumented in this encounter Additional Health Concerns Assessment Noted Time PHQ-2 Depression Total Score: 2 10/25/19 24 1:52 PM EDT documented as of this encounter Care Teams Blacking Machine Operator Relationship Specialty Start Date End Date Paul Gottlieb CNP [address] [place] [address] [email or web address] PCP - General Family Medicine 12/04/22 documented as of this encounter Additional Source Comments The information contained in this document represents components of the legal health record. It is not the complete legal health record.[facility]
--- OUTSIDE RECORDS SUMMARY | 2025-03-21 15:58 | XMS_ITS | Encounter Summary ---
Author Organization [facility] Address [address] [place] [address] [place] [address] Phone Care Team Providers Care Quarry Plant Crusher Operator Name Role Phone KieraEm small Karmen LAUNDERETTE ATTENDANT Primary Care Provider Clarence Bales MD Primary Care Provider [phone] Paul Gottlieb CNP Primary Care Provider [phone] Encounter Details Date Type Department Care Team (Late st Contact Info) Description 10/09/2020 Procedure Pass [address] [place] [address] Social History Tobacco Use Types Packs/Day Years [...] Procedure Pass [facility] Imaging - CT Main [place] [address] [place] [address] 03/28/2025 11:00 AM EDT Office Visit [address] [phone] Paul Gottlieb CNP 29 [place] [address] 05/01/2025 9:30 AM EST Office Visit [facility] Pulmonary, Allergy and Critical Care Medicine 10 [facility] [place] [address] Jared Lee MD [address] [place] [address] 06/22/2025 11:00 AM EST Appointment [facility] Imaging - CT [facility] [address] [place] [address] Jodie Mcmahan MD [address] [place] [address] [email or web address] 06/22/2025 11:40 AM EST Office Visit [facility] Otolaryngology [facility] 0 [facility] [address] [place] [address] Peter Melgoza MD [facility], [address] [place] [address] [email or web address] documented as of [...] documented as of this encounter Care Teams Quarry Plant Crusher Operator Relationship Specialty Start Date End Date Em Parekh CNP 40 [place] [address] PCP - General Internal Medicine 06/26/20 11/15/22 Clarence Bales MD 40 [place] [address] PCP - General Internal Medicine 11/16/22 12/03/22 Paul Gottlieb CNP [address] [place] [address] PCP - General Family Medicine 12/04/22 documented as of this encounter Additional Source Comments The information contained in this document represents components of the legal health record. It is not the complete legal health record.[facility]
--- OUTSIDE RECORDS SUMMARY | 2025-03-21 15:58 | XMS_ITS | Encounter Summary ---
Author Organization [facility] Address [address] [place] [address] [place] [address] Phone Care Team Providers Care Hand Sole Sewer Name Role Phone Paul Gottlieb CNP Primary Care Provider [phone] Reason for Visit * Reason Comments Medication Refill Encounter Details Date Type Department Care Team (Late st Contact Info) Description 03/07/[address] [address] Paul Gottlieb CNP [address] [place] [address] [email or web address] Medication Refill Social History Tobacco Use Types Packs/Day Years [...] on file documented as of this encounter Progress Notes * Anastasiya Hadley - 03/07/2025 9:11 AM EDT Rx Care Gap Status - Instructions for Clinical Staff (prescriber discretion applies): > Mismatch review guide > N/a - No action needed Visit Info Last visit: 02/01/2025 Paul Gottlieb CNP - Family Medicine [facility] > Requested f/u: Return as needed/as scheduled. Upcoming visit: 03/28/2025 Paul Gottlieb CNP - [facility] ACTIONS TAKEN BY Anastasiya Hadley - Criteria met. Gastrointestinal Rx Protocol (H2 blockers, PPIs, stool softeners, laxatives) - omeprazole Criteria met; renew for up to 12 months. Visit in the past 24 months: Yes documented in this encounter Plan of Treatment Upcoming Encounters Date Type Department Care Team (Late st Contact Info) Description 03/14/2025 Procedure Pass [facility] Imaging - CT [address] [address] 03/28/2025 11:00 AM EDT Office Visit [address] [address] Paul Gottlieb, CONSULTANT INTERN [address] [place] [address] 05/01/2025 9:30 AM EST Office Visit [facility] Pulmonary, Allergy and Critical Care Medicine [address] [place] [address] Jared Lee MD [address] [place] [address] 06/22/2025 11:00 AM EST Appointment [facility] Imaging - CT [address] [address] Jodie Mcmahan MD [address] [place] [address] [email or web address] 06/22/2025 11:40 AM EST Office Visit [facility] Otolaryngology [facility] [address] [phone] Peter Melgoza MD [address] [address] [email or web address] documented as of this encounter Visit Diagnoses Not on filedocumented in this encounter Additional Health Concerns Assessment Noted Time PHQ-2 Depression Total Score: 2 10/25/19 24 1:52 PM EDT documented as of this encounter Care Teams Hand Sole Sewer Relationship Specialty Start Date End Date Paul Gottlieb CNP [address] [place] [address] [email or web address] PCP - General Family Medicine 12/04/22 documented as of this encounter Additional Source Comments The information contained in this document represents components of the legal health record. It is not the complete legal health record.[facility]
== END 2025-03-21 13:13 | disposition home or self-care (01) ==
LOC: HO.HCS 12:37
PROVIDERS: PCP Registered Nurse; Visit Provider Internal Medicine
DX: I25.10 Atherosclerotic heart disease of native coronary artery without angina pectoris (principal); I10 Essential (primary) hypertension; G47.33 Obstructive sleep apnea (adult) (pediatric); E66.01 Morbid (severe) obesity due to excess calories
CPT/HCPCS: 99214; G2211

== ENCOUNTER → 2025-03-21 12:37 | Outpatient (BNVA) | payer MEDICARE, SELFPAY | PROVIDERS: PCP Registered Nurse; Visit Provider Internal Medicine | DX: I25.10 Atherosclerotic heart disease of native coronary artery without angina pectoris (principal); I10 Essential (primary) hypertension; G47.33 Obstructive sleep apnea (adult) (pediatric); E66.01 Morbid (severe) obesity due to excess calories; Z68.39 Body mass index [BMI] 39.0-39.9, adult | CPT/HCPCS: 99212 ==